=== PATIENT | female | born 1950 | race Caucasian/White ===

== ENCOUNTER 2020-07-21 21:34 | Inpatient (IN) | payer OTHER, MEDICARE ==
[~2020-07-21] VITALS: Ht 162.6 cm; Wt 165.0 kg
[2020-07-21] MEDS ORDERED: dilTIAZem IV PUSH 25 MG/5 ML VIAL IVP ONE ×2 (22:00→22:30)
--- NOTE | 2020-07-21 22:10 | PHYS DOC ---
General Adult EDM: Chief Complaint: RAPID HEART RATE HPI: HPI: 69-year-old female past medical history of atrial fibrillation for the past 5 years on Xarelto, hypertension and morbid obesity, [facility] with complaints of worsening progressive shortness of breath for the past 2 weeks after patient was cardioverted as an outpatient by her software packager Dr. Aleman, [facility]. Patient states her software packager recently doubled her metoprolol dose to 25mg and her amiodarone went from 100 to 400 qdaily. Is also on losartan and compliant with her Xarelto. Patient reports EMS had to take her to [place] and not shown admission. Is not aware of a rash in her right lower extremity but says her leg feels warm and is pruritic. No known history of MRSA. No cats at home. No interdigital web lesions. Review of Systems: Review of Systems: Constitutional: Denies fever or chills. [] Eyes: Denies change in visual acuity. [] HENT: Denies nasal congestion or sore throat. [] Respiratory: Denies cough or hemoptysis Cardiovascular: Denies chest pain or edema. [] GI: Denies abdominal pain, nausea, vomiting, bloody stools or diarrhea. [] : Denies vaginal bleeding or hematuria Musculoskeletal: Denies back pain or joint pain or new lower extremity swelling Integument: Denies discoloration or blistering lesions Neurologic: Denies headache, focal weakness or sensory changes. [] Endocrine: Denies polyuria or polydipsia. [] Lymphatic: Denies swollen glands. [] Psychiatric: Denies depression or anxiety. [] Heart Score: C/O Chest Pain: No Risk Factors: Risk Factors: DM, Current or recent (<one month) smoker, HTN, HLP, family history of CAD, obesity. Risk Scores: Score 0 - 3: 2.5% MACE over next 6 weeks - Discharge Home Score 4 - 6: 20.3% MACE over next 6 weeks - Admit for Clinical Observation Score 7 - 10: 72.7% MACE over next 6 weeks - Early Invasive Strategies Current Medications: Current Medications Medications (Trade) Dose Ordered Sig/Jacques Start Time Stop Time Status Last Admin Dose Admin Diltiazem HCl (Cardizem Iv Push) 20 mg 1X ONCE 07/21/20 22:00 07/21/20 22:01 UNV Sodium Chloride 1,000 ml @ 1,000 mls/hr 1X ONCE 07/21/20 22:00 07/21/20 22:59 UNV Physical Exam: PE: Constitutional: Well developed, well nourished, no acute distress, non-toxic appearance. HENT: Normocephalic, atraumatic, no oral lesions Eyes: EOMI, conjunctiva normal, no discharge. Neck: Normal range of motion, supple, Cardiovascular: S1/2 present, regular tachycardic Lungs & Thorax: Speaking in full sentences, bilateral equal chest rise, no tachypnea or increased work of breathing, placed on oxygen in ED-reports no home oxygen Abdomen: soft, no tenderness, Skin: Warm, dry, warm, erythematous rash over right lower extremity with no subcutaneous emphysema, negative Nikolsky sign with no desquamation Back: No tenderness, no CVA tenderness. [] Extremities: No tenderness, no cyanosis, no lower extremity edema Neurologic: Alert and oriented X 3, normal motor function, normal sensory function, no focal deficits noted. [] Psychologic: Affect normal, judgement normal, mood normal. [] EKG: EKG: Irregular rhythm with no P waves found at 142 bpm, A. fib with RVR, no axis deviation, QTC 489, no obvious ST elevations Radiology/Procedures: Radiology/Procedures: IMAGING REPORT Signed PATIENT: CONSUELO CAMPBELL ACCOUNT: [id number] : 1950 LOCATION: [facility] ICU AGE: 69 SEX: F EXAM STATUS: ADM IN ORD. PHYSICIAN: ESTELITA GARRISON DO REASON: rash r/o air PROCEDURE: RIGHT FEMUR XRAY Two-view right femur, two-view right knee and two-view right tibia-fibula dated 07/21/2020. No comparison available. Clinical data indication: Pain after injury. FINDINGS: 2 views right femur show normal bony alignment. No displaced fracture. No periostitis or bone destruction. Mild degenerative change at the right hip joint. 2 views the right knee show normal bony alignment. No displaced fracture. There is moderate tricompartmental hypertrophic change with prominent marginal o steophytes. No definite joint effusion or loose body. 2 views right tibia-fibula show normal bony alignment. No displaced fracture. No periostitis or bone destruction. IMPRESSION: 1. No acute bony abnormality. 2. Degenerative changes as above. Electronically signed by: Dangelo Rea MD (07/22/2020 3:55 AM) [facility] DICTATED and SIGNED BY: DANGELO REA MD DATE: 07/22/20 [id number] IMAGING REPORT Signed PATIENT: CONSUELO CAMPBELL ACCOUNT: [id number] : 1950 LOCATION: [facility] ICU AGE: 69 SEX: F EXAM STATUS: ADM IN ORD. PHYSICIAN: ESTELITA GARRISON DO REASON: soa PROCEDURE: PORTABLE CHEST 1V Single view chest dated 07/21/2020. No comparison available. CLINICAL INDICATION: Shortness of breath. FINDINGS: Upright portable exam performed. Heart size is mildly enlarged. Prominent perihilar linear markings. Lungs are otherwise clear. No consolidation or pleural effusion. No pneumothorax. IMPRESSION: 1. Mild perihilar interstitial changes, nonspecific. The findings could be chronic, although low-grade edema or atypical infection cannot be excluded. Correlate clinically. Electronically signed by: Dangelo Rea MD (07/22/2020 3:56 AM) [facility] DICTATED and SIGNED BY: DANGELO REA MD DATE: 07/22/20 [id number] Course & Med Decision Making: Course & Med Decision Making Pertinent Labs and Imaging studies reviewed. (See chart for details) Lengthy ED stay due to high volume in ED, acuity of critical pts and ED staffing. Concern for sepsis with RLE cellulitis and nitrite positive UTI, afib w/rvr (resolved with one dose of cardizem). Patient also hypoxic on nasal cannula (not her baseline) and tachycardic -suspect hypoxia related to CHF but cannot exclude PE. Patient was weaned off oxygen was 96% on room air but requested nasal cannula after blood gas was drawn. Pt also with morbid obesity, suspect hypoventilation syndrome. D-dimer will likely be elevated. Will admit for further medical management-may benefit from CTA chest to evaluate for PE vs V/Q scan vs bilateral duplex studies. Patient stable at time of admission and agrees with this plan. I have spoken with the patient and/or caregivers-daughter at [facility]. I have explained the patient's condition, diagnosis and treatment plan based on the information available to me at this time. I have answered the patient's and/or caregivers questions and answered any concerns. The patient and/or caregivers have as good an understanding of the patient's diagnosis, condition and treatment plan as can be expected at this point. The patient has been stabilized within the capability of the emergency department. The patient will be transported for further care and management or will be moved to an observation or inpatient service. I have communicated with the staff or medical practitioner taking over this patient's care. Critical Care: Authorized and Performed by: Estelita Garrison DO Total critical care time: approximately 30 minutes Due to a high probability of clinically significant, life threatening deterioration, the patient required my highest level of preparedness to intervene emergently and I personally spent this critical care time directly and personally managing the patient. This critical care time included obtaining a history; examining the patient; pulse oximetry; ventilator management if necessary; ordering and review of studies; arranging urgent treatment with development of a management plan; evaluation of patient's response to treatment; frequent reassessment; discussion with patient/family; and, discussions with other providers. This critical care time was performed to assess and manage the high probability of imminent, life-threatening deterioration that could result in multi-organ failure. It was exclusive of separately billable procedures and treating other patients and teaching time. Please see MDM section and the rest of the note for further information on patient assessment and treatment. Dragon Disclaimer: Valerie Disclaimer: This electronic medical record was generated, in whole or in part, using a voice recognition dictation system. Departure Departure Impression: Primary Impression: Atrial fibrillation with RVR Additional Impressions: Sepsis Cellulitis of right lower extremity UTI (urinary tract infection) Disposition: ADMITTED INPATIENT Admitting Physician: LIZ (Dr. Li) Condition: GUARDED ESTELITA GARRISON DO Jul 21, 2020 22:10
[2020-07-21] MEDS ORDERED: IV NORMAL SALINE 1000ML BAG 1,000 ML IV ONE (22:30)
[2020-07-21] MEDS ORDERED: IV NORMAL SALINE 1000ML BAG 1,000 ML IV SCH (22:30)
[2020-07-21 22:57] LABS: BASO % 0 % (0-3); EOS % 0 % (0-3); HEMATOCRIT 37.6 % (36.0-47.0); HEMOGLOBIN 12.5 g/dL (12.0-15.5); LYMPH # 0.6 x10^3/uL (1.0-4.8); LYMPH % 3 % (24-48); MEAN CORPUSCULAR HEMOGLOBIN 31 pg (25-35); MEAN CORPUSCULAR HGB CONC 33 g/dL (31-37); MEAN CORPUSCULAR VOLUME 94 fL (79-100); MONO # 0.6 x10^3/uL (0.0-1.1); MONO % 3 % (0-9); NEUT # 19.4 x10^3/uL (1.8-7.7); NEUT % 94 % (31-73); PLATELET COUNT 274 x10^3/uL (140-400); RED BLOOD COUNT 3.99 x10^6/uL (3.50-5.40); WHITE BLOOD COUNT 20.6 x10^3/uL (4.0-11.0)
[2020-07-21 23:10] LABS: CALCIUM 8.6 mg/dL (8.5-10.1); CREATININE 1.5 mg/dL (0.6-1.0); GFR 34.5; POTASSIUM 4.4 mmol/L (3.5-5.1)
[2020-07-21 23:17] LABS: ALBUMIN 2.6 g/dL (3.4-5.0); ALBUMIN/GLOBULIN RATIO 0.5 (1.0-1.7); MAGNESIUM 2.2 mg/dL (1.8-2.4); TOTAL BILIRUBIN 0.8 mg/dL (0.2-1.0); TOTAL PROTEIN 7.5 g/dL (6.4-8.2)
[2020-07-21] MEDS ORDERED: VANCOMYCIN 2 GM in IV NORMAL SALINE 500ML BAG 500 ML IV ONE (23:30)
[2020-07-22] VITALS (10 sets, daily range): BP systolic 85–110; BP diastolic 40–63
--- NOTE | 2020-07-22 00:36 | EKG ---
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
[2020-07-22] MEDS ORDERED: ACETAMINOPHEN 325 MG TABLET. PO ONE (01:00)
[2020-07-22 01:17] LABS: D-DIMER 0.88 ug/mlFEU (0.00-0.50)
[2020-07-22 01:35] LABS: BILIRUBIN,URINE NEGATIVE (NEG); CLARITY,URINE TURBID; COLOR,URINE AMBER; NITRITE,URINE POSITIVE (NEG); PROTEIN,URINE 100 mg/dL (NEG-TRACE)
[2020-07-22 01:42] LABS: BACTERIA,URINE MANY /HPF (0-FEW); RBC,URINE 0 /HPF (0-2); WBC,URINE 20-40 /HPF (0-4)
[2020-07-22 01:43] LABS: HYALINE CASTS, URINE FEW /HPF
[2020-07-22 01:47] LABS: BARBITURATES NEG (NEG); BENZODIAZEPINES NEG (NEG); CANNABINOIDS NEG (NEG); COCAINE NEG (NEG); METHADONE NEG (NEG); OPIATES NEG (NEG); PHENCYCLIDINE NEG (NEG)
[2020-07-22 01:55] LABS: AMPHETAMINE/METHAMPHETAMINE NEG (NEG)
[2020-07-22 02:06] LABS: BASE EXCESS ABG 0 mmol/L (-3-3); HCO3 ABG 23 mmol/L (21-28); PCO2 ABG 32 mmHg (35-46); PO2 ABG 68 mmHg (65-108); SAT O2 ABG 95 % (92-99)
[2020-07-22 02:18] LABS: FIO2 ABG 21
[2020-07-22 03:20] LABS: % BANDS 2 % (0-9); % LYMPHS 5 % (24-48); % MONOS 2 % (0-10); % SEGS 91 % (35-66); PLT ESTIMATE ADEQUATE (ADEQUATE)
[2020-07-22] MEDS: VANCOMYCIN PER PHARMACY MC PRN (03:34)
--- NOTE | 2020-07-22 03:34 | NUR ---
Pharmacy Vancomycin Dosing Note S:Consulted to monitor and dose vancomycin started 07/21/20. O:CONSUELO CAMPBELL is a 69 year old F with Cellulitis Sepsis . Height: 5 feet, 4 inches Weight: 163.7 kg [place] Body Weight: 54.70 Adjusted Body Weight: 98.30 Dosing Weight: Actual Other Antibiotics: LABS: Last BUN: 14 Last Creatinine: 1.5 Creatinine Clearance: 55.7 mL/min Last WBC: 20.6 Last Procalcitonin: Tmax (past 24 hours): 102.7 Microbiology: I/O: Drug Levels: Last level: on at Last dose given 07/21/20 at 2330 Vancomycin Dosing: Loading Dose: 2000 mg x1 Dosing Weight: Actual Target Trough: 15-20 A: Based on: WT AND CRCL P: 1. Begin Vancomycin 2000 mg IV q24h 2. Follow up Trough level on 07/23/20 at 2230 3. Pharmacy will continue to monitor, follow and adjust therapy as needed. JOE PIERCE RPH, 07/22/20 0334 Signed: 07/22/20 at 333 by JOE PIERCE RPH PHA
[2020-07-22] MEDS ORDERED: RIVA20TA2 PO (03:45)
--- NOTE | 2020-07-22 03:46 | NUR ---
admit from ER with A fib- RVR, cellulitis and SOB. patient states that she saw her core dipper 2 weeks ago, At that time she was cardioverted and Covid- Test was neg. Since then she states notes increase SOB, weakness and her left lower leg is red and warm. her kermit area and buttocks are red as well Addendum: 07/22/20 at 0506 by KASSANDRA PUENTE RN Dr Guillermo piedra for patient low BP- orders for fluids and changing ATB
--- NOTE | 2020-07-22 03:57 | RAD ---
Two-view right femur, two-view right knee and two-view right tibia-fibula dated 07/21/2020. No comparison available. Clinical data indication: Pain after injury. FINDINGS: 2 views right femur show normal bony alignment. No displaced fracture. No periostitis or bone destruc tion. Mild degenerative change at the right hip joint. 2 views the right knee show normal bony alignment. No displaced fracture. There is moderate tricompar tmental hypertrophic change with prominent marginal osteophytes. No definite joint effusion or loose body. 2 views right tibia-fibula show normal bony alignment. No displaced fracture. No periostitis or bone destruction. IMPRESSION: 1. No acute bony abnormality. 2. Degenerative changes as above. Electronically signed by: Dangelo Rea MD (07/22/2020 3:55 AM) GREG
--- NOTE | 2020-07-22 03:59 | RAD ---
Single view chest dated 07/21/2020. No comparison available. CLINICAL INDICATION: Shortness of breath. FINDINGS: Upright portable exam performed. Heart size is mildly enlarged. Prominent perihilar linear markings. Lungs are otherwise clear. No consolidation or pleural effusion. No pneumothorax. IMPRESSION: 1. Mild perihilar interstitial changes, nonspecific. The findings could be chronic, although low-grad e edema or atypical infection cannot be excluded. Correlate clinically. Electronically signed by: Dangelo Rea MD (07/22/2020 3:56 AM) GREG
[2020-07-22] MEDS ORDERED: cefTRIAXone IV Push 1 GM VIAL. IVP ONE (04:00)
[2020-07-22] MEDS ORDERED: PIP/TAZO PER PHARMACY MC PRN (05:15)
[2020-07-22] MEDS ORDERED: IV NORMAL SALINE 1000ML BAG 1,000 ML IV ONE (05:30)
[2020-07-22] MEDS: PIPERACILLIN/TAZOBACTAM 3.375 GM in IV NORMAL SALINE 50ML 50 ML IV SCH ×4 (05:55→23:26)
--- NOTE | 2020-07-22 10:30 | PDOC2 ---
IVETTE HERNANDEZ BUILDING ARCHITECTURAL DESIGNER 07/22/20 1030: CARDIAC CONSULT DATE OF CONSULT Date of Consult DATE: 07/22/20 TIME: 10:21 REASON FOR CONSULT Reason for Consult: AFIB with RVR REFERRING PHYSICIAN Referring Physician: Dr. Rosales SOURCE Source: Chart review, Patient HISTORY OF PRESENT ILLNESS HISTORY OF PRESENT ILLNESS This is a 69 yo female who presented secondary to shortness of breath. Has a history of AFIB. Follow with [facility], Dr. Al. Underwent cardioversion 2 weeks ago. Reports experiencing shortness of breath since that time. Denies any chest pain, palpitations, dizziness, diaphoresis, or nausea/vomiting. Was noted in AFIB with RVR upon arrival, which prompted this consult. Also noted with fevers, leukocytosis, and UTI. Reports compliance with meds including metoprolol, Amiodarone, and Xarelto. PAST MEDICAL HISTORY Cardiovascular: AFIB (s/p CV), CHF, HTN Pulmonary: Asthma GI: GERD Psych: Anxiety, Depression Renal/: Chronic renal insuff PAST SURGICAL HISTORY Past Surgical History: Cholecystectomy FAMILY HISTORY Family History: Hypertension SOCIAL HISTORY Smoke: No ALCOHOL: none Drugs: None Lives: with Family CURRENT MEDICATIONS CURRENT MEDICATIONS Current Medications Medications (Trade) Dose Ordered Sig/Jacques Route PRN Reason Start Time Stop Time Status Last Admin Dose Admin Sodium Chloride 1,000 ml @ 1,000 mls/hr Q1H IV 07/21/20 22:30 07/21/20 23:29 DC 07/21/20 22:58 Sodium Chloride 1,000 ml @ 1,000 mls/hr 1X ONCE IV 07/21/20 22:30 07/21/20 23:29 DC 07/21/20 22:58 Diltiazem HCl (Cardizem Iv Push) 20 mg 1X ONCE IVP 07/21/20 22:30 07/21/20 22:31 DC 07/21/20 22:59 Vancomycin HCl (Vanco Per Pharmacy) 1 each PRN DAILY PRN MC SEE COMMENTS 07/21/20 22:15 07/22/20 03:34 Vancomycin HCl 2 gm/Sodium Chloride 500 ml @ 250 mls/hr 1X ONCE IV 07/21/20 23:30 07/22/20 01:29 DC 07/21/20 23:31 Acetaminophen (Tylenol) 650 mg 1X ONCE PO 07/22/20 01:00 07/22/20 01:01 DC 07/22/20 01:16 Ceftriaxone Sodium (Rocephin) 1 gm 1X ONCE IVP 07/22/20 04:00 07/22/20 04:01 DC 07/22/20 04:22 Sodium Chloride 1,000 ml @ 125 mls/hr 1X ONCE IV 07/22/20 05:30 07/22/20 13:29 07/22/20 05:23 Piperacillin Sod/ Tazobactam Sod 3.375 gm/Sodium Chloride 50 ml @ 100 mls/hr Q6HRS IV 07/22/20 06:00 07/22/20 05:55 ALLERGIES ALLERGIES: Coded Allergies: No Known Drug Allergies (Unverified , 07/21/20) ROS Review of System 14 point ROS conducted with pertinent positives noted above in HPI PHYSICAL EXAM General: Alert, Oriented X3, Cooperative, No acute distress HEENT: Atraumatic Lungs: Other (diminished ) Heart: Other (AFIB, rate mostly controlled ) Abdomen: Soft, Other (obese ) Extremities: Other (1+ bilalteral LE edema. Erythema to RLE ) Skin: No significant lesion Neuro: Normal speech, Sensation intact Psych/Mental Status: Mental status NL, Mood NL MUSCULOSKELETAL: Osteoarthritic changes both hands VITALS/I&O VITALS/I&O: Vital Signs Date Time Temp Pulse Resp B/P (MAP) Pulse Ox O2 Delivery O2 Flow Rate FiO2 07/22/20 08:00 Room Air 07/22/20 07:00 98.3 95 20 95/40 (58) 99 2.0 98.3 I & O 07/21/20 07/21/20 07/22/20 15:00 23:00 07:00 Intake Total 4250 ml Balance 4250 ml LABS Lab: Laboratory Tests Test 07/21/20 22:46 07/22/20 00:59 07/22/20 01:27 07/22/20 01:56 White Blood Count 20.6 x10^3/uL (4.0-11.0) H Red Blood Count 3.99 x10^6/uL (3.50-5.40) Hemoglobin 12.5 g/dL (12.0-15.5) Hematocrit 37.6 % (36.0-47.0) Mean Corpuscular Volume 94 fL (79-100) Mean Corpuscular Hemoglobin 31 pg (25-35) Mean Corpuscular Hemoglobin Concent 33 g/dL (31-37) Red Cell Distribution Width 14.0 % (11.5-14.5) Platelet Count 274 x10^3/uL (140-400) Neutrophils (%) (Auto) 94 % (31-73) H Lymphocytes (%) (Auto) 3 % (24-48) L Monocytes (%) (Auto) 3 % (0-9) Eosinophils (%) (Auto) 0 % (0-3) Basophils (%) (Auto) 0 % (0-3) Neutrophils # (Auto) 19.4 x10^3/uL (1.8-7.7) H Lymphocytes # (Auto) 0.6 x10^3/uL (1.0-4.8) L Monocytes # (Auto) 0.6 x10^3/uL (0.0-1.1) Eosinophils # (Auto) 0.0 x10^3/uL (0.0-0.7) Basophils # (Auto) 0.0 x10^3/uL (0.0-0.2) Segmented Neutrophils % 91 % (35-66) H Band Neutrophils % 2 % (0-9) Lymphocytes % 5 % (24-48) L Monocytes % 2 % (0-10) Platelet Estimate Adequate (ADEQUATE) Prothrombin Time 20.0 SEC (11.7-14.0) H Prothrombin Time INR 1.7 (0.8-1.1) H Activated Partial Thromboplast Time 49 SEC (24-38) H D-Dimer (Maureen) 0.88 ug/mlFEU (0.00-0.50) H Sodium Level 136 mmol/L (136-145) Potassium Level 4.4 mmol/L (3.5-5.1) Chloride Level 101 mmol/L (98-107) Carbon Dioxide Level 28 mmol/L (21-32) Anion Gap 7 (6-14) Blood Urea Nitrogen 14 mg/dL (7-20) Creatinine 1.5 mg/dL (0.6-1.0) H Estimated GFR (Cockcroft-Gault) 34.5 BUN/Creatinine Ratio 9 (6-20) Glucose Level 130 mg/dL (70-99) H Lactic Acid Level 1.8 mmol/L (0.4-2.0) Calcium Level 8.6 mg/dL (8.5-10.1) Phosphorus Level 1.7 mg/dL (2.6-4.7) L Magnesium Level 2.2 mg/dL (1.8-2.4) Total Bilirubin 0.8 mg/dL (0.2-1.0) Aspartate Amino Transferase (AST) 29 U/L (15-37) Alanine Aminotransferase (ALT) 36 U/L (14-59) Alkaline Phosphatase 107 U/L (46-116) Troponin I Quantitative < 0.017 ng/mL (0.000-0.055) < 0.017 ng/mL (0.000-0.055) GW-Smy-K-Type Natriuretic Peptide 41799 pg/mL (0-124) H Total Protein 7.5 g/dL (6.4-8.2) Albumin 2.6 g/dL (3.4-5.0) L Albumin/Globulin Ratio 0.5 (1.0-1.7) L Urine Collection Type U cath Urine Color Loretta Urine Clarity Turbid Urine pH 6.0 (<5.0-8.0) Urine Specific Sullivan 1.025 (1.000-1.030) Urine Protein 100 mg/dL (NEG-TRACE) Urine Glucose (UA) Negative mg/dL (NEG) Urine Ketones (Stick) Trace mg/dL (NEG) Urine Blood Negative (NEG) Urine Nitrite Positive (NEG) Urine Bilirubin Negative (NEG) Urine Urobilinogen Dipstick 1.0 mg/dL (0.2 mg/dL) Urine Leukocyte Esterase Moderate (NEG) Urine RBC 0 /HPF (0-2) Urine WBC 20-40 /HPF (0-4) Urine Squamous Epithelial Cells Few /LPF Urine Bacteria Many /HPF (0-FEW) Urine Hyaline Casts Few /HPF Urine Mucus Slight /LPF Urine Opiates Screen Neg (NEG) Urine Methadone Screen Neg (NEG) Urine Barbiturates Neg (NEG) Urine Phencyclidine Screen Neg (NEG) Urine Amphetamine/Methamphetamine Neg (NEG) Urine Benzodiazepines Screen Neg (NEG) Urine Cocaine Screen Neg (NEG) Urine Cannabinoids Screen Neg (NEG) Urine Ethyl Alcohol Neg (NEG) O2 Saturation 95 % (92-99) Arterial Blood pH 7.47 (7.35-7.45) H Arterial Blood pCO2 at Patient Temp 32 mmHg (35-46) L Arterial Blood pO2 at Patient Temp 68 mmHg (65-108) Arterial Blood HCO3 23 mmol/L (21-28) Arterial Blood Base Excess 0 mmol/L (-3-3) FiO2 21 Test 07/22/20 07:05 Troponin I Quantitative < 0.017 ng/mL (0.000-0.055) Laboratory Tests 07/21/20 22:46 Laboratory Tests 07/21/20 22:46 ASSESSMENT/PLAN ASSESSMENT/PLAN 1. Acute on chronic probable diastolic CHF 2. PAFIB; presently with RVR in setting of acute febrile illness. Rate controlled following IV Cardizem bolus. Follows with [facility], Dr. Al. Underwent cardioversion 2 weeks ago. On metoprolol and Amiodarone for rhythm, rate control. Xarelto for stroke prophylaxis 3. Hypertension; low end 4. CKD 5. Leukocytosis, fevers, UTI 6. RLE cellulitis Recommendations Lasix therapy IV Dig x1 now Resume metoprolol for rate control as BP allows Amiodarone for rhythm control Xarelto for stroke prophylaxis Obtain records from [facility] Ongoing treatment of UTI, cellulitis as per MARTA MENDOZA MD 07/22/20 1832: CARDIAC CONSULT ASSESSMENT/PLAN ASSESSMENT/PLAN Patient seen and examined. Agree with TRANSMISSION TECHNICIAN's assessment and plan. Recurrent AF rate better controlled Continue amiodarone and xarelto We will review records from [facility] and make further recommendations - she will probably need AF ablation Continue diuresis for acute on chr diastolic HF Thank you for your consultation IVETTE HERNANDEZ APRN Jul 22, 2020 10:30 MARTA MENDOZA MD Jul 22, 2020 18:32
[2020-07-22] MEDS ORDERED: VALA10005 PO (10:33)
[2020-07-22] MEDS ORDERED: METO-247 PO (10:33)
[2020-07-22] MEDS ORDERED: AMIO100T4 PO ×2 (10:34→10:37)
[2020-07-22] MEDS ORDERED: TELM40TA PO (10:34)
[2020-07-22] MEDS ORDERED: DIGOXIN IV 500 MCG/2 ML AMPUL. IV ONE (10:45)
[2020-07-22] MEDS: METOPROLOL SUCC 24HR ER 50 MG TAB.ER.24H. PO SCH (11:00)
[2020-07-22] MEDS: fentaNYL PF VIAL 100 MCG/2 ML VIAL IVP PRN ×5 (11:01→23:25)
[2020-07-22] MEDS: AMIODARONE HCL 200 MG TABLET. PO SCH (11:52)
[2020-07-22] MEDS: ACETAMINOPHEN 325 MG TABLET. PO PRN (12:49)
[2020-07-22] MEDS ORDERED: FUROSEMIDE 40 MG/4 ML VIAL. IVP ONE (13:45)
--- NOTE | 2020-07-22 14:19 | NUR ---
SW following. Chart reviewed. Pt from home alone, room air, cardiac diet. Cardiology following. SW will continue to follow.
--- NOTE | 2020-07-22 14:42 | HP ---
ADMIT DATE: 07/22/2020 CHIEF COMPLAINT: Rapid heart rate. HISTORY OF PRESENT ILLNESS: The patient is a pleasant 69-year-old female who has a previous history of atrial fibrillation 5 years ago, now she presents with another rapid heart rate, has been occurring for a couple of days. She thought it would go away. She has some associated shortness of breath and some left arm discomfort. She apparently was converted recently as an outpatient from her recurrent AFib. She has also increased her metoprolol. She is already on Xarelto. I discussed the case with ER physician. The patient has been admitted to the ICU. She has AFib with RVR and sepsis as well with cellulitis on the right lower extremity. PAST MEDICAL HISTORY: AFib, chronic anticoagulation, viral infection as she is on Valtrex, arrhythmias, hypertension. ALLERGIES: None. FAMILY HISTORY: Diabetes. SOCIAL HISTORY: She does not drink, smoke or take drugs. She works at the [employer]. MEDICATIONS: Reviewed. She is on Valtrex, Xarelto, amiodarone, metoprolol and Micardis. REVIEW OF SYSTEMS: GENERAL: No history of weight change, weakness or fevers. SKIN: No bruising, hair changes or rashes. EYES: No blurred, double or loss of vision. NOSE AND THROAT: No history of nosebleeds, hoarseness or sore throat. HEART: No history of palpitations, chest pain or shortness of breath on exertion. LUNGS: Denies cough, hemoptysis, wheezing. She complains of shortness of breath. GASTROINTESTINAL: Denies changes in appetite, nausea, vomiting, diarrhea or constipation. GENITOURINARY: No history of frequency, urgency, hesitancy or nocturia. NEUROLOGIC: Denies history of numbness, tingling, tremor or weakness. PSYCHIATRIC: No history of panic, anxiety or depression. ENDOCRINE: No history of heat or cold intolerance, polyuria or polydipsia. EXTREMITIES: Denies muscle weakness, pain on walking or stiffness. She complains of left arm pain. PHYSICAL EXAMINATION: VITALS: Within normal limits and are stable. GENERAL: No apparent distress. Alert and oriented. HEENT: Normal cephalic atraumatic, external auditory canals are patent. EYES: Extraocular muscles are intact, pupils are equally round and reactive to light and accommodation. MUSCULOSKELETAL: Well developed, well nourished, good range of motion. ENDOCRINE: No thyromegaly was palpated. LYMPHATICS: No cervical chain or axillary nodes were noted. HEMATOPOIETIC: No bruising. NECK: Supple, no JVD, no thyromegaly was noted. LUNGS: Clear to auscultation in all lung chavez without rhonchi or wheezing. HEART: RRR, S1, S2 present. Peripheral pulses intact, no obvious murmurs were noted. ABDOMEN: Soft, nontender. Positive bowel sounds no organomegaly, normal bowel sounds. EXTREMITIES: Without any cyanosis, clubbing, or edema. Pedal pulses intact, Homans sign is negative. The right lower extremity has cellulitis. Please see the pictures. NEUROLOGIC: Normal speech, normal tone. A and O x 3, moves all extremities, no obvious focal deficits. PSYCHIATRIC: Normal affect, normal mood. Stable. SKIN: No ulcerations or rashes, good skin turgor, no jaundice. VASCULAR: Good capillary refill, neurovascular bundle appears to be intact. LABORATORY DATA: White count is 21. Electrolytes are pending. Troponin is 0. Urinalysis shows moderate leukocyte esterase and 20-40 white cells. INR is 1.7. ABG shows a pH of 7.47, pCO2 of 32, pO2 of 68, bicarbonate 23 with 98% sat that was on room air. Drug screens negative. Chest x-ray: Possible atypical infection with mild perihilar interstitial changes. ASSESSMENT AND PLAN: Sepsis and atrial fibrillation with rapid ventricular response, cellulitis and leukocytosis and urinary tract infection. The patient will be admitted to the ICU. IV fluids, IV antibiotics. Consult Cardiology. Consult Infectious Disease. Home meds. Deep venous thrombosis prophylaxis. Full code. Long-term prognosis guarded. CC time 34 minutes. REENA/MAGEN DR: Gene TID: [id number]
[2020-07-22] MEDS: LACTOBACILLUS RHAMNOSUS GG 1 CAPSULE. PO SCH ×2 (15:10→20:50)
[2020-07-22] MEDS: RIVAROXABAN 10 MG TABLET. PO SCH (17:26)
[2020-07-22] MEDS: POTASSIUM & SODIUM PHOSPHATES PACKET. PO SCH ×2 (17:27→20:49)
[2020-07-22] MEDS: VANCOMYCIN 2 GM in IV NORMAL SALINE 500ML BAG 500 ML IV SCH (23:00)
[2020-07-23] MEDS: fentaNYL PF VIAL 100 MCG/2 ML VIAL IVP PRN ×3 (01:19→08:15)
[2020-07-23 03:08] VITALS: BP 107/48
[2020-07-23] MEDS: PIPERACILLIN/TAZOBACTAM 3.375 GM in IV NORMAL SALINE 50ML 50 ML IV SCH ×3 (05:29→18:17)
--- NOTE | 2020-07-23 06:51 | PDOC ---
[facility] [facility] PROGRESS NOTE Date of Service DOS: DATE: 07/23/20 TIME: 06:40 Chief Complaint Chief Complaint Sepsis and atrial fibrillation with rapid ventricular response, cellulitis and leukocytosis and urinary tract infection. The patient will be admitted to the ICU. IV fluids, IV antibiotics. Consult Cardiology. Consult Infectious Disease. Home meds. Deep venous thrombosis prophylaxis. Full code. Long-term prognosis guarded. CC time 34 minutes. History of Present Illness History of Present Illness The patient is a pleasant 69-year-old female who has a previous history of atrial fibrillation 5 years ago, now she presents with another rapid heart rate, has been occurring for a couple of days. She thought it would go away. She has some associated shortness of breath and some left arm discomfort. She apparently was converted recently as an outpatient from her recurrent AFib. She has also increased her metoprolol. She is already on Xarelto. I discussed the case with ER physician. The patient has been admitted to the ICU. She has AFib with RVR and sepsis as well with cellulitis on the right lower extremity. 07/23/2020 Afebrile, no acute events overnight. She complains of pain in her right lower extremity; will discontinue IV pain medications and add orals. 90 mL net fluid output overnight; continue diuresis with Lasix IV x1. Monitor kidney function. Will also continue metoprolol and amiodarone for rate control. MRSA PCR pending, continue vancomycin and Zosyn for now. Appreciate ID input on the management of this patient. Vitals/I&O Vitals/I&O: Vital Signs Date Time Temp Pulse Resp B/P (MAP) Pulse Ox O2 Delivery O2 Flow Rate FiO2 07/23/20 05:31 22 Room Air 07/23/20 03:08 98.0 84 107/48 (67) 94 98.0 07/22/20 18:08 2.0 I & O 07/22/20 07/22/20 07/23/20 15:00 23:00 07:00 Intake Total 480 ml 380 ml 0 ml Output Total 450 ml 500 ml Balance 30 ml -120 ml 0 ml Physical Exam General: Alert, Oriented X3, Cooperative, No acute distress Heart: Other (AFIB, rate mostly controlled ) Abdomen: Soft, Other (obese ) Extremities: Other (1+ bilalteral LE edema) Skin: No significant lesion, Other (Erythema to RLE ) Labs Labs: Laboratory Tests Test 07/22/20 07:05 07/23/20 04:30 Troponin I Quantitative < 0.017 ng/mL (0.000-0.055) Creatinine 1.4 mg/dL (0.6-1.0) Estimated GFR (Cockcroft-Gault) 37.4 Assessment and Plan Assessmemt and Plan Problems Medical Problems: (1) Atrial fibrillation with RVR Status: Acute (2) Cellulitis of right lower extremity Status: Acute (3) Sepsis Status: Acute (4) UTI (urinary tract infection) Status: Acute Comment Review of Relevant I have reviewed the following items maria c (where applicable) has been applied. Medications: Current Medications Medications (Trade) Dose Ordered Sig/Jacques Route PRN Reason Start Time Stop Time Status Last Admin Dose Admin Vancomycin HCl 2 gm/Sodium Chloride 500 ml @ 250 mls/hr Q24H IV 07/22/20 23:00 07/22/20 23:00 Lactobacillus Rhamnosus (Culturelle) 1 cap BID PO 07/22/20 09:00 07/22/20 20:50 Fentanyl Citrate (Fentanyl 2ml Vial) 50 mcg PRN Q2HR PRN IVP PAIN 07/22/20 10:30 07/23/20 05:31 Rivaroxaban (Xarelto) 20 mg DAILYWSUP PO 07/22/20 17:00 07/22/20 17:26 Amiodarone HCl (Cordarone) 200 mg DAILY PO 07/22/20 11:00 07/22/20 11:52 Digoxin (Lanoxin) 250 mcg 1X ONCE IV 07/22/20 10:45 07/22/20 10:46 DC 07/22/20 11:22 Acetaminophen (Tylenol) 650 mg PRN Q6HRS PRN PO MILD PAIN / TEMP > 100.3'F 07/22/20 11:30 07/22/20 12:49 Furosemide (Lasix) 40 mg 1X ONCE IVP 07/22/20 13:45 07/22/20 13:48 DC 07/22/20 15:08 Potassium Phos/ Sodium Phos (Phos-Nak) 1 pkt Q12HR PO 07/22/20 17:00 07/23/20 09:01 07/22/20 17:27 Justifications for Admission Other Justification SHANNAN JACKSON MD Jul 23, 2020 06:51
[2020-07-23 07:00] VITALS: BP 110/57
[2020-07-23] MEDS ORDERED: FUROSEMIDE 20 MG/2 ML VIAL. IVP ONE (07:00)
[2020-07-23 07:24] LABS: BASO # 0.1 x10^3/uL (0.0-0.2); BASO % 0 % (0-3); EOS # 0.1 x10^3/uL (0.0-0.7); EOS % 1 % (0-3); HEMATOCRIT 32.7 % (36.0-47.0); HEMOGLOBIN 10.5 g/dL (12.0-15.5); LYMPH # 0.9 x10^3/uL (1.0-4.8); LYMPH % 7 % (24-48); MEAN CORPUSCULAR HEMOGLOBIN 31 pg (25-35); MEAN CORPUSCULAR HGB CONC 32 g/dL (31-37); MEAN CORPUSCULAR VOLUME 96 fL (79-100); MONO # 0.6 x10^3/uL (0.0-1.1); MONO % 4 % (0-9); NEUT # 11.5 x10^3/uL (1.8-7.7); NEUT % 87 % (31-73); PLATELET COUNT 244 x10^3/uL (140-400); RED CELL DISTRIBUTION WIDTH 14.9 % (11.5-14.5); WHITE BLOOD COUNT 13.2 x10^3/uL (4.0-11.0)
[2020-07-23 07:29] LABS: CALCIUM 7.8 mg/dL (8.5-10.1); CREATININE 1.4 mg/dL (0.6-1.0); GFR 37.4; POTASSIUM 3.8 mmol/L (3.5-5.1)
[2020-07-23] MEDS ORDERED: HYDROcodone/APAP 10/325 1 TAB TABLET PO PRN (10:15)
[2020-07-23] MEDS: LACTOBACILLUS RHAMNOSUS GG 1 CAPSULE. PO SCH ×2 (10:17→20:39)
[2020-07-23] MEDS: AMIODARONE HCL 200 MG TABLET. PO SCH (10:17)
[2020-07-23] MEDS: METOPROLOL SUCC 24HR ER 50 MG TAB.ER.24H. PO SCH (10:17)
[2020-07-23] MEDS: POTASSIUM & SODIUM PHOSPHATES PACKET. PO SCH (10:18)
[2020-07-23] MEDS: HYDROcodone/APAP 7.5/325MG 1 TAB TABLET PO PRN ×2 (10:24→16:14)
[2020-07-23 11:00] VITALS: BP 105/55
--- NOTE | 2020-07-23 12:14 | NUR ---
SS following for discharge planning. SS reviewed pt chart and discussed with pt RN. Pt is from home and is currently on room air. Pt on IV Vancomycin and IV Zosyn for cellulitis. Cardiology following. SS will continue to follow for discharge planning.
--- NOTE | 2020-07-23 12:21 | PDOC ---
IVETTE HERNANDEZ BILLING AND ACCOUNTING STAFF ASSISTANT 07/23/20 1221: CARDIO Progress Notes Date and Time Date of Service 07/23/20 Time of Evaluation 1220 Subjective Subjective: No Chest Pain, No Palpitations, Other (no SOA at rest ) Vitals Vitals Vital Signs Date Time Temp Pulse Resp B/P (MAP) Pulse Ox O2 Delivery O2 Flow Rate FiO2 07/23/20 11:50 94 Room Air 07/23/20 10:17 120 121/56 07/23/20 07:00 98.4 18 98.4 07/22/20 18:08 2.0 Weight Weight [ ] Input and Output Intake and Output Intake and Output 07/23/20 07:00 Intake Total 860 ml Output Total 950 ml Balance -90 ml Intake Oral 860 ml Output Urine Total 950 ml Laboratory Labs Laboratory Tests Test 07/23/20 04:30 White Blood Count 13.2 x10^3/uL (4.0-11.0) Red Blood Count 3.40 x10^6/uL (3.50-5.40) Hemoglobin 10.5 g/dL (12.0-15.5) Hematocrit 32.7 % (36.0-47.0) Mean Corpuscular Volume 96 fL (79-100) Mean Corpuscular Hemoglobin 31 pg (25-35) Mean Corpuscular Hemoglobin Concent 32 g/dL (31-37) Red Cell Distribution Width 14.9 % (11.5-14.5) Platelet Count 244 x10^3/uL (140-400) Neutrophils (%) (Auto) 87 % (31-73) Lymphocytes (%) (Auto) 7 % (24-48) Monocytes (%) (Auto) 4 % (0-9) Eosinophils (%) (Auto) 1 % (0-3) Basophils (%) (Auto) 0 % (0-3) Neutrophils # (Auto) 11.5 x10^3/uL (1.8-7.7) Lymphocytes # (Auto) 0.9 x10^3/uL (1.0-4.8) Monocytes # (Auto) 0.6 x10^3/uL (0.0-1.1) Eosinophils # (Auto) 0.1 x10^3/uL (0.0-0.7) Basophils # (Auto) 0.1 x10^3/uL (0.0-0.2) Sodium Level 140 mmol/L (136-145) Potassium Level 3.8 mmol/L (3.5-5.1) Chloride Level 104 mmol/L (98-107) Carbon Dioxide Level 25 mmol/L (21-32) Anion Gap 11 (6-14) Blood Urea Nitrogen 19 mg/dL (7-20) Creatinine 1.4 mg/dL (0.6-1.0) Estimated GFR (Cockcroft-Gault) 37.4 Glucose Level 98 mg/dL (70-99) Calcium Level 7.8 mg/dL (8.5-10.1) Microbiology Micro Microbiology 07/22/20 Urine Culture - Preliminary, Resulted 07/22/20 Blood Culture - Preliminary, Resulted NO GROWTH AFTER 1 DAY Physical Exam HEENT: Neck Supple W Full Motion Chest: Symmetric LUNGS: Other (diminished bases) Heart: irregularly irregular Abdomen: Soft N/T Extremities: Other (1+ bilateral LE edema ) Neurology: alert, oriented, follow commands Assessment Assessment 1. Acute on chronic probable diastolic CHF; improved with diuresis 2. PAFIB; remains intermittent [facility]; records obtained, but unclear if she had successful conversion to SR. 3. Hypertension; low end 4. H/o NICM; LVEF perviously 25-30% 2015. Cath 05/2015 with normal coronaries. Echo 2017 shows LVEF recovery. NATASHA 07/08/20 with EV 50-55%. 5. CKD 6. Leukocytosis, fevers, UTI 7. RLE cellulitis Recommendations Mild diuresis IV Dig x1 now Metoprolol for rate control as BP allows Amiodarone for rhythm control Xarelto for stroke prophylaxis May require AF ablation Ongoing treatment of UTI, cellulitis as per IM Justicifation of Admission Dx: Justifications for Admission: Justification of Admission Dx: Yes CHF: Cardiac Arrhythmias (AFIB with RVR) MARTA MENDOZA MD 07/23/20 1525: CARDIO Progress Notes Assessment Assessment Patient seen and examined. Agree with LEASE BROKER's assessment and plan. Acute on chronic diastolic heart failure better compensated with diuresis Recurrent AF rate better controlled Continue amiodarone and xarelto Possible AF ablation therapy as an outpatient IVETTE HERNANDEZ APRN Jul 23, 2020 12:21 MARTA MENDOZA MD Jul 23, 2020 15:25
[2020-07-23] MEDS ORDERED: DIGOXIN IV 500 MCG/2 ML AMPUL. IV ONE (12:45)
[2020-07-23 15:00] VITALS: BP 112/56
[2020-07-23] MEDS: RIVAROXABAN 10 MG TABLET. PO SCH (17:17)
[2020-07-23 19:29] VITALS: BP 101/52
[2020-07-23] MEDS: HYDROcodone/APAP 5/325MG 1 TAB TABLET PO PRN (20:43)
[2020-07-23 22:19] VITALS: BP 110/55
[2020-07-23 22:54] LABS: VANC TR 17.1 mcg/mL (10.0-20.0)
[2020-07-23] MEDS: VANCOMYCIN 2 GM in IV NORMAL SALINE 500ML BAG 500 ML IV SCH (23:20)
[2020-07-23] MEDS: VANCOMYCIN PER PHARMACY MC PRN (23:55)
--- NOTE | 2020-07-23 23:56 | NUR ---
Pharmacy Vancomycin Dosing Note S:Consulted to monitor and dose vancomycin started 07/21/20. O:CONSUELO CAMPBELL is a 69 year old F with Cellulitis Sepsis . Height: 5 feet, 4 inches Weight: 165.8 kg [place] Body Weight: 54.70 Adjusted Body Weight: 99.14 Dosing Weight: Actual Other Antibiotics: LABS: Last BUN: 14 Last Creatinine: 1.5 Creatinine Clearance: 55.7 mL/min Last WBC: 20.6 Last Procalcitonin: Tmax (past 24 hours): 102.7 Microbiology: I/O: Drug Levels: Last Trough level: 17.1 on 07/23/20 at 2230 Last dose given 07/21/20 at 2330 Vancomycin Dosing: Loading Dose: 2000 mg x1 Dosing Weight: Actual Target Trough: 15-20 A: Based on: TROUGH P: 1. Continue Vancomycin 2000 mg IV q24h 2. Follow up Trough level IF NEEDED 3. Pharmacy will continue to monitor, follow and adjust therapy as needed. JOE PIERCE RPH, 07/23/206 Signed: 07/23/20 at 2356 by JOE PIERCE RPH PHA
[2020-07-24] VITALS (7 sets, daily range): BP systolic 87–168; BP diastolic 45–75
[2020-07-24] MEDS: HYDROcodone/APAP 5/325MG 1 TAB TABLET PO PRN ×4 (00:38→20:58)
[2020-07-24] MEDS: PIPERACILLIN/TAZOBACTAM 3.375 GM in IV NORMAL SALINE 50ML 50 ML IV SCH ×4 (00:39→17:24)
[2020-07-24 05:37] LABS: BASO % 1 % (0-3); EOS # 0.3 x10^3/uL (0.0-0.7); EOS % 4 % (0-3); HEMOGLOBIN 10.1 g/dL (12.0-15.5); LYMPH % 13 % (24-48); MEAN CORPUSCULAR HEMOGLOBIN 31 pg (25-35); MEAN CORPUSCULAR HGB CONC 33 g/dL (31-37); MEAN CORPUSCULAR VOLUME 96 fL (79-100); MONO # 0.5 x10^3/uL (0.0-1.1); MONO % 7 % (0-9); NEUT # 5.8 x10^3/uL (1.8-7.7); NEUT % 75 % (31-73); PLATELET COUNT 238 x10^3/uL (140-400); RED BLOOD COUNT 3.23 x10^6/uL (3.50-5.40); RED CELL DISTRIBUTION WIDTH 14.1 % (11.5-14.5); WHITE BLOOD COUNT 7.6 x10^3/uL (4.0-11.0)
--- NOTE | 2020-07-24 05:41 | NUR ---
Patient is being treated for cellulitis of the RLE. 07/23/20 patient complained of some increasing pain around her ankle to RLE. 0500 this day, patient stated pain was now throughout the foot and Jesica's test positive for pain. Physician paged.
[2020-07-24 06:07] LABS: CALCIUM 8.2 mg/dL (8.5-10.1); CREATININE 1.4 mg/dL (0.6-1.0); GFR 37.4; POTASSIUM 3.9 mmol/L (3.5-5.1)
[2020-07-24] MEDS: VANCOMYCIN PER PHARMACY MC PRN (07:39)
[2020-07-24] MEDS: LACTOBACILLUS RHAMNOSUS GG 1 CAPSULE. PO SCH ×2 (07:52→20:58)
[2020-07-24] MEDS: AMIODARONE HCL 200 MG TABLET. PO SCH (07:53)
--- NOTE | 2020-07-24 08:53 | PDOC ---
PROGRESS NOTES Date of Service: DATE: 07/24/20 TIME: 08:53 Chief Complaint Chief Complaint IMPRESSION Sepsis and atrial fibrillation with rapid ventricular response, cellulitis and leukocytosis and urinary tract infection. ELECTROLYTE imbalance H/o NICM; LVEF perviously 25-30% 2015. Cath 05/2015 with normal coronaries. Echo 2018 shows LVEF recovery. NATASHA 07/08/20 with EV 50-55%. admitted to the ICU. IV fluids, IV antibiotics. Consult Cardiology. Consult Infectious Disease. Home meds. Deep venous thrombosis prophylaxis. Full code. Long-term prognosis guarded. replace lytes CC time 34 minutes. History of Present Illness History of Present Illness The patient is a pleasant 69-year-old female who has a previous history of atrial fibrillation 5 years ago, now she presents with another rapid heart rate, has been occurring for a couple of days. She thought it would go away. She has some associated shortness of breath and some left arm discomfort. She apparently was converted recently as an outpatient from her recurrent AFib. She has also increased her metoprolol. She is already on Xarelto. I discussed the case with ER physician. The patient has been admitted to the ICU. She has AFib with RVR and sepsis as well with cellulitis on the right lower extremity. 07/24/2020 Afebrile, no acute events overnight. She complains of pain in her right lower extremity; will discontinue IV pain medications and add orals. 90 mL net fluid output overnight; continue diuresis with Lasix IV x1. Monitor kidney function. Will also continue metoprolol and amiodarone for rate control. MRSA PCR pending, continue vancomycin and Zosyn for now. Appreciate ID input on the management of this patient. No Doppler evidence of lower extremity deep venous thrombosis. 07/23/2020 Afebrile, no acute events overnight. She complains of pain in her right lower extremity; will discontinue IV pain medications and add orals. 90 mL net fluid output overnight; continue diuresis with Lasix IV x1. Monitor kidney function. Will also continue metoprolol and amiodarone for rate control. MRSA PCR pending, continue vancomycin and Zosyn for now. Appreciate ID input on the management of this patient. Vitals Vitals Vital Signs Date Time Temp Pulse Resp B/P (MAP) Pulse Ox O2 Delivery O2 Flow Rate FiO2 07/24/20 08:38 99 Room Air 07/24/20 07:53 92 122/54 07/24/20 05:46 2.0 07/24/20 02:24 98.1 18 98.1 Physical Exam General: Alert, Oriented X3, Cooperative, No acute distress Heart: Other (AFIB, rate mostly controlled ) Abdomen: Soft, Other (obese ) Extremities: Other (1+ bilalteral LE edema) Skin: No significant lesion, Other (Erythema to RLE ) Labs LABS OURCE: STRA CATH ENTR: 07/22/20-[address]: GUERRERO HUNTER SOURCE: BLOOD ENTR: 07/22/20-[address]: GUERRERO HUNTER SPDESC: ORDERED: BCULT Procedure Result BLOOD CULTURE Preliminary NO GROWTH AFTER 2 DAYS SPDESC: ANTONIO PORTER MD ORDERED: URINE CULTURE Procedure Result URINE CULTURE Preliminary Preliminary 60,000 CFU/ML GRAM NEGATIVE RODS on 07/23/20 at 0736 FINAL ID= [ESCHERICHIA COLI] Testing Performed by: [place] [address] For Inquires, the Physician may contact the Microbiology department at [phone] ESCHERICHIA COLI Unless otherwise specified, Testing Performed by: [place] [address] For Inquires, the Physician may contact the Microbiology department at [phone] Signed PATIENT: CONSUELO CAMPBELL ACCOUNT: [id number] : 1950 LOCATION: [facility] AGE: 69 SEX: F EXAM STATUS: ADM IN ORD. PHYSICIAN: WILBERT LOFTON MD REASON: Pain, swelling, concern for DVT PROCEDURE: VENOUS LOWER EXTREMITY RIGHT EXAM: Right lower extremity venous Doppler sonogram. HISTORY: Pain and swelling. TECHNIQUE: Terry scale and color Doppler sonographic evaluation of the right lower extremity veins with spectral waveform analysis was performed. FINDINGS: There is normal color flow, normal compressibility and there are normal spectral waveforms in the common femoral, superficial femoral, popliteal, posterior tibial and greater saphenous veins. IMPRESSION: No Doppler evidence of lower extremity deep venous thrombosis. Electronically signed by: Herlinda Herrera MD (07/24/2020 9:22 AM) [id number] DICTATED and SIGNED BY: HERLINDA HERRERA MD DATE: 07/24/20 [id number] WHAT IS THE PURPOSE OF AN ADVANCE DIRECTIVE? (ALSO KNOWN A LIVING WILL OR HEALTHCARE POWER OF CORRECTIONAL GUARD) To articulate and document your wishes concerning medical treatment should you lose decision-making ability. To designate an individual, known as your healthcare agent or proxy, to ensure your wishes are honored should you no longer be able to speak for yourself. This includes, among other things, making decisions about when to withhold or withdraw life-sustaining treatment. WHERE CAN I FIND AN ADVANCE DIRECTIVE FORM? The National [employer] Organization has a list of advance directive forms for every state. We also recommend checking your state govern ents website for the most up-to-date forms. Find quick links to all state and territory government websites at [employer]. WHAT MUST I INCLUDE IN MY ADVANCE DIRECTIVE? The name and contact information of your healthcare agent/proxy. Answers to specific questions about your preferences for care if you become unable to speak for yourself. The forms and questions asked vary a bit from state to state. A sample question: Do you want to receive artificially provided nutrition or hydration when you are close to and/or permanently unconscious? Names and signatures of individuals who witness your signing your advance directive, if required. Not all states require witness signatures. The signature and seal of a nutritionist public health, if required by your state. Not all [facility] require advance directives to be notarized. [facility] has a list of all advance directive/living will requirements by state. WHAT ELSE WOULD BE GOOD TO INCLUDE IN MY ADVANCE DIRECTIVE? Detailed information about what procedures or types of care you would like to receive and what you wish to avoid at all costs that are not covered by the questions on the form. Would you want to take advantage of all life-support technologies if it would only postpone ? Would you want to use them if you were permanently unconscious? Would you want them if you were going through an advanced progressive illness? More general statements about your values regarding end-of-life care. What does a good mean and look like to you? For that matter, what defines a life wor th living? Do you define life by the intake of breath and nutrients? Is it defined by consciousness? At what point do you want to prolong it and at what point do you want to preserve resources for other people? Personal desires for body disposition in essence, what you want to happen to your body when you and plans for any memorial service(s) A list of people who cannot make healthcare decisions for you. Leave no room for ambiguity, which could lead to tensions between loved ones about your care as you are dying. HOW SHOULD I GO ABOUT IDENTIFYING MY HEALTHCARE AGENT/PROXY? An ideal person for the job is someone who: Knows you well. A spouse/partner, a family member, a close friend: all are good candidates. Excels at making difficult decisions under pressure. Is diplomatic and empathetic critical traits for balancing the needs, wants, and unpredictable emotions of a patients loved ones. Isnt afraid to ask tough questions, which invariably arise when discussing a dying individuals end-of-life care. Is easily reachable by email, phone, and/or text. Is or can easily be within physical proximity of where youre likely to receive care. Once [place] identified this person, how do I talk to them about what care I want and dont want at the end of life? Have multiple conversations with your healthcare agent about your wishes. Take them out to tea, have them over for dinner, go to a bar or library. Talk about what you want, and make sure you are heard and understood. If you see fit, and if your agent doesnt already know this information, you can share a bit about the personalities of the people who will be most invested in your health outcomes, and how best to handle these folks in situations when emotions will be running high. This can be a serious conversation or it can be full of laughs. You get to decide how the conversation plays out. WHAT IF MY HEALTHCARE AGENT/PROXY IS UNAVAILABLE TO EXECUTE THEIR DUTIES WHEN I AM DYING? It is important to appoint an alternative agent/proxy for exactly this reason. Identify and inform that person as you did your main agent/proxy, and list them as an alternate on your advance directive form. WHAT ABOUT THE TWO WITNESSES? ARE THERE ANY SPECIAL REQUIREMENTS FOR WHO CAN AND CANT SERVE IN THIS ROLE? In most states, witnesses cannot be: Your healthcare agent or proxy; Any of your care providers; Related to you by blood, adoption, or marriage; Entitled to any portion of your estate upon your . dpoa review> 20 min to portal Laboratory Tests Test 07/23/20 22:25 07/24/20 04:05 Vancomycin Level Trough 17.1 mcg/mL (10.0-20.0) Vancomycin Last Dose Date 07/22/20 Vancomycin Last Dose Time 2300 White Blood Count 7.6 x10^3/uL (4.0-11.0) Red Blood Count 3.23 x10^6/uL (3.50-5.40) Hemoglobin 10.1 g/dL (12.0-15.5) Hematocrit 31.0 % (36.0-47.0) Mean Corpuscular Volume 96 fL (79-100) Mean Corpuscular Hemoglobin 31 pg (25-35) Mean Corpuscular Hemoglobin Concent 33 g/dL (31-37) Red Cell Distribution Width 14.1 % (11.5-14.5) Platelet Count 238 x10^3/uL (140-400) Neutrophils (%) (Auto) 75 % (31-73) Lymphocytes (%) (Auto) 13 % (24-48) Monocytes (%) (Auto) 7 % (0-9) Eosinophils (%) (Auto) 4 % (0-3) Basophils (%) (Auto) 1 % (0-3) Neutrophils # (Auto) 5.8 x10^3/uL (1.8-7.7) Lymphocytes # (Auto) 1.0 x10^3/uL (1.0-4.8) Monocytes # (Auto) 0.5 x10^3/uL (0.0-1.1) Eosinophils # (Auto) 0.3 x10^3/uL (0.0-0.7) Basophils # (Auto) 0.0 x10^3/uL (0.0-0.2) Sodium Level 142 mmol/L (136-145) Potassium Level 3.9 mmol/L (3.5-5.1) Chloride Level 106 mmol/L (98-107) Carbon Dioxide Level 27 mmol/L (21-32) Anion Gap 9 (6-14) Blood Urea Nitrogen 16 mg/dL (7-20) Creatinine 1.4 mg/dL (0.6-1.0) Estimated GFR (Cockcroft-Gault) 37.4 Glucose Level 97 mg/dL (70-99) Uric Acid 5.3 mg/dL (2.6-6.0) Calcium Level 8.2 mg/dL (8.5-10.1) Assessment and Plan Assessmemt and Plan Problems Medical Problems: (1) Atrial fibrillation with RVR Status: Acute (2) Cellulitis of right lower extremity Status: Acute (3) Sepsis Status: Acute (4) UTI (urinary tract infection) Status: Acute Comment Review of Relevant I have reviewed the following items maria c (where applicable) has been applied. Labs Laboratory Tests Test 07/23/20 04:30 07/23/20 22:25 07/24/20 04:05 White Blood Count 13.2 x10^3/uL (4.0-11.0) 7.6 x10^3/uL (4.0-11.0) Red Blood Count 3.40 x10^6/uL (3.50-5.40) 3.23 x10^6/uL (3.50-5.40) Hemoglobin 10.5 g/dL (12.0-15.5) 10.1 g/dL (12.0-15.5) Hematocrit 32.7 % (36.0-47.0) 31.0 % (36.0-47.0) Mean Corpuscular Volume 96 fL (79-100) 96 fL (79-100) Mean Corpuscular Hemoglobin 31 pg (25-35) 31 pg (25-35) Mean Corpuscular Hemoglobin Concent 32 g/dL (31-37) 33 g/dL (31-37) Red Cell Distribution Width 14.9 % (11.5-14.5) 14.1 % (11.5-14.5) Platelet Count 244 x10^3/uL (140-400) 238 x10^3/uL (140-400) Neutrophils (%) (Auto) 87 % (31-73) 75 % (31-73) Lymphocytes (%) (Auto) 7 % (24-48) 13 % (24-48) Monocytes (%) (Auto) 4 % (0-9) 7 % (0-9) Eosinophils (%) (Auto) 1 % (0-3) 4 % (0-3) Basophils (%) (Auto) 0 % (0-3) 1 % (0-3) Neutrophils # (Auto) 11.5 x10^3/uL (1.8-7.7) 5.8 x10^3/uL (1.8-7.7) Lymphocytes # (Auto) 0.9 x10^3/uL (1.0-4.8) 1.0 x10^3/uL (1.0-4.8) Monocytes # (Auto) 0.6 x10^3/uL (0.0-1.1) 0.5 x10^3/uL (0.0-1.1) Eosinophils # (Auto) 0.1 x10^3/uL (0.0-0.7) 0.3 x10^3/uL (0.0-0.7) Basophils # (Auto) 0.1 x10^3/uL (0.0-0.2) 0.0 x10^3/uL (0.0-0.2) Sodium Level 140 mmol/L (136-145) 142 mmol/L (136-145) Potassium Level 3.8 mmol/L (3.5-5.1) 3.9 mmol/L (3.5-5.1) Chloride Level 104 mmol/L (98-107) 106 mmol/L (98-107) Carbon Dioxide Level 25 mmol/L (21-32) 27 mmol/L (21-32) Anion Gap 11 (6-14) 9 (6-14) Blood Urea Nitrogen 19 mg/dL (7-20) 16 mg/dL (7-20) Creatinine 1.4 mg/dL (0.6-1.0) 1.4 mg/dL (0.6-1.0) Estimated GFR (Cockcroft-Gault) 37.4 37.4 Glucose Level 98 mg/dL (70-99) 97 mg/dL (70-99) Calcium Level 7.8 mg/dL (8.5-10.1) 8.2 mg/dL (8.5-10.1) Vancomycin Level Trough 17.1 mcg/mL (10.0-20.0) Vancomycin Last Dose Date 07/22/20 Vancomycin Last Dose Time 2300 Uric Acid 5.3 mg/dL (2.6-6.0) Laboratory Tests Test 07/23/20 22:25 07/24/20 04:05 Vancomycin Level Trough 17.1 mcg/mL (10.0-20.0) Vancomycin Last Dose Date 07/22/20 Vancomycin Last Dose Time 2300 White Blood Count 7.6 x10^3/uL (4.0-11.0) Red Blood Count 3.23 x10^6/uL (3.50-5.40) Hemoglobin 10.1 g/dL (12.0-15.5) Hematocrit 31.0 % (36.0-47.0) Mean Corpuscular Volume 96 fL (79-100) Mean Corpuscular Hemoglobin 31 pg (25-35) Mean Corpuscular Hemoglobin Concent 33 g/dL (31-37) Red Cell Distribution Width 14.1 % (11.5-14.5) Platelet Count 238 x10^3/uL (140-400) Neutrophils (%) (Auto) 75 % (31-73) Lymphocytes (%) (Auto) 13 % (24-48) Monocytes (%) (Auto) 7 % (0-9) Eosinophils (%) (Auto) 4 % (0-3) Basophils (%) (Auto) 1 % (0-3) Neutrophils # (Auto) 5.8 x10^3/uL (1.8-7.7) Lymphocytes # (Auto) 1.0 x10^3/uL (1.0-4.8) Monocytes # (Auto) 0.5 x10^3/uL (0.0-1.1) Eosinophils # (Auto) 0.3 x10^3/uL (0.0-0.7) Basophils # (Auto) 0.0 x10^3/uL (0.0-0.2) Sodium Level 142 mmol/L (136-145) Potassium Level 3.9 mmol/L (3.5-5.1) Chloride Level 106 mmol/L (98-107) Carbon Dioxide Level 27 mmol/L (21-32) Anion Gap 9 (6-14) Blood Urea Nitrogen 16 mg/dL (7-20) Creatinine 1.4 mg/dL (0.6-1.0) Estimated GFR (Cockcroft-Gault) 37.4 Glucose Level 97 mg/dL (70-99) Uric Acid 5.3 mg/dL (2.6-6.0) Calcium Level 8.2 mg/dL (8.5-10.1) Microbiology 07/22/20 Urine Culture - Preliminary, Resulted 07/22/20 Blood Culture - Preliminary, Resulted NO GROWTH AFTER 2 DAYS Medications Current Medications Sodium Chloride 1,000 ml @ 1,000 mls/hr Q1H IV Last administered on 07/21/20at 22:58; Start 07/21/20 at 22:30; Stop 07/21/20 at 23:29; Status DC Diltiazem HCl (Cardizem Iv Push) 10 mg 1X ONCE IVP ; Start 07/21/20 at 22:00; Stop 07/21/20 at 21:55; Status DC Sodium Chloride 1,000 ml @ 1,000 mls/hr 1X ONCE IV Last administered on 07/21/20at 22:58; Start 07/21/20 at 22:30; Stop 07/21/20 at 23:29; Status DC Diltiazem HCl (Cardizem Iv Push) 20 mg 1X ONCE IVP Last administered on 07/21/20at 22:59; Start 07/21/20 at 22:30; Stop 07/21/20 at 22:31; Status DC Vancomycin HCl (Vanco Per Pharmacy) 1 each PRN DAILY PRN MC SEE COMMENTS Last administered on 07/24/20at 07:39; Start 07/21/20 at 22:15 Vancomycin HCl 2 gm/Sodium Chloride 500 ml @ 250 mls/hr 1X ONCE IV Last administered on 07/21/20at 23:31; Start 07/21/20 at 23:30; Stop 07/22/20 at 01:29; Status DC Acetaminophen (Tylenol) 650 mg 1X ONCE PO Last administered on 07/22/20at 01:16; Start 07/22/20 at 01:00; Stop 07/22/20 at 01:01; Status DC Vancomycin HCl 2 gm/Sodium Chloride 500 ml @ 250 mls/hr Q24H IV Last administered on 07/23/20at 23:20; Start 07/22/20 at 23:00 Vancomycin HCl (Vancomycin Trough Level) 1 each 1X ONCE MC Last administered on 07/23/20at 22:30; Start 07/23/20 at 22:30; Stop 07/23/20 at 22:31; Status DC Ceftriaxone Sodium (Rocephin) 1 gm 1X ONCE IVP Last administered on 07/22/20at 04:22; Start 07/22/20 at 04:00; Stop 07/22/20 at 04:01; Status DC Sodium Chloride 1,000 ml @ 125 mls/hr 1X ONCE IV Last administered on 07/22/20at 05:23; Start 07/22/20 at 05:30; Stop 07/22/20 at 13:29; Status DC Piperacillin Sod/ Tazobactam Sod (Zosyn Per Pharmacy) 1 each PRN DAILY PRN MC SEE COMMENTS; Start 07/22/20 at 05:15 Piperacillin Sod/ Tazobactam Sod 3.375 gm/Sodium Chloride 50 ml @ 100 mls/hr Q6HRS IV Last administered on 07/24/20at 06:13; Start 07/22/20 at 06:00 Lactobacillus Rhamnosus (Culturelle) 1 cap BID PO Last administered on 07/24/20at 07:52; Start 07/22/20 at 09:00 Fentanyl Citrate (Fentanyl 2ml Vial) 50 mcg PRN Q2HR PRN IVP PAIN Last administered on 07/23/20at 08:15; Start 07/22/20 at 10:30; Stop 07/23/20 at 1 0:06; Status DC Metoprolol Succinate (Toprol Xl) 50 mg DAILY PO Last administered on 07/23/20at 10:17; Start 07/22/20 at 11:00 Rivaroxaban (Xarelto) 20 mg DAILYWSUP PO Last administered on 07/23/20at 17:17; Start 07/22/20 at 17:00 Amiodarone HCl (Cordarone) 200 mg DAILY PO Last administered on 07/24/20at 07:53; Start 07/22/20 at 11:00 Digoxin (Lanoxin) 250 mcg 1X ONCE IV Last administered on 07/22/20at 11:22; Start 07/22/20 at 10:45; Stop 07/22/20 at 10:46; Status DC Acetaminophen (Tylenol) 650 mg PRN Q6HRS PRN PO MILD PAIN / TEMP > 100.3'F Last administered on 07/22/20at 12:49; Start 07/22/20 at 11:30 Furosemide (Lasix) 40 mg 1X ONCE IVP Last administered on 07/22/20at 15:08; Start 07/22/20 at 13:45; Stop 07/22/20 at 13:48; Status DC Potassium Phos/ Sodium Phos (Phos-Nak) 1 pkt Q12HR PO Last administered on 07/23/20at 10:18; Start 07/22/20 at 17:00; Stop 07/23/20 at 09:01; Status DC Furosemide (Lasix) 20 mg 1X ONCE IVP Last administered on 07/23/20at 08:15; Start 07/23/20 at 07:00; Stop 07/23/20 at 07:01; Status DC Acetaminophen/ Hydrocodone Bitart (Lortab 7.5/325) 1 tab PRN Q6HRS PRN PO SEVERE PAIN Last administered on 07/23/20at 16:14; Start 07/23/20 at 10:15 Acetaminophen/ Hydrocodone Bitart (Lortab 10/325) 1 tab PRN Q6HRS PRN PO SEVERE PAIN 2ND CHOICE Last administered on 07/24/20at 08:38; Start 07/23/20 at 10:15 Acetaminophen/ Hydrocodone Bitart (Lortab 5/325) 1 tab PRN Q4HRS PRN PO MODERATE PAIN Last administered on 07/24/20at 04:48; Start 07/23/20 at 10:15 Digoxin (Lanoxin) 250 mcg 1X ONCE IV Last administered on 07/23/20at 13:13; Start 07/23/20 at 12:45; Stop 07/23/20 at 12:46; Status DC Active Scripts Active Reported Amiodarone Hcl 100 Mg Tablet 1 Tab PO DAILY 30 Days Micardis (Telmisartan) 40 Mg Tablet 40 Mg PO DAILY Valtrex (Valacyclovir Hcl) 1,000 Mg Tablet 1 Tab PO DAILY Metoprolol Succinate ( Xl ) (Metoprolol Succinate) 100 Mg Tab.er.24h 50 Mg PO DAILY Xarelto (Rivaroxaban) 20 Mg Tablet 1 Tab PO DAILY 30 Days with food Vitals/I & O Vital Sign - Last 24 Hours 07/23/20 07/23/20 07/23/20 07/23/20 10:17 10:17 10:24 11:00 Temp 98.0 98.0 Pulse 120 120 89 Resp 18 B/P (MAP) 121/56 121/56 105/55 (72) Pulse Ox 97 O2 Delivery Room Air Room Air 07/23/20 07/23/20 07/23/20 07/23/20 11:50 13:13 15:00 16:14 Temp 98.3 98.3 Pulse 89 70 Resp 18 B/P (MAP) 105/55 112/56 (74) Pulse Ox 94 96 O2 Delivery Room Air Room Air Room Air 07/23/20 07/23/20 07/23/20 07/23/20 16:59 19:29 20:00 21:47 Temp 98.2 98.2 Pulse 98 Resp 18 B/P (MAP) 101/52 (68) Pulse Ox 97 97 O2 Delivery Room Air Room Air Room Air Room Air O2 Flow Rate 2.0 07/23/20 07/24/20 07/24/20 07/24/20 22:19 00:38 02:24 04:48 Temp 98.2 98.1 98.2 98.1 Pulse 96 96 Resp 18 18 B/P (MAP) 110/55 (73) 101/45 (63) Pulse Ox 98 98 99 99 O2 Delivery Room Air Room Air Room Air Room Air O2 Flow Rate 2.0 2.0 07/24/20 07/24/20 07/24/20 07/24/20 04:50 05:46 07:45 07:53 Pulse 92 B/P (MAP) 122/54 Pulse Ox 99 99 O2 Delivery Room Air Room Air Room Air O2 Flow Rate 2.0 2.0 07/24/20 08:38 Pulse Ox 99 O2 Delivery Room Air Intake and Output 07/23/20 07/23/20 07/24/20 15:00 23:00 07:00 Intake Total 450 ml 350 ml 850 ml Output Total 300 ml Balance 450 ml 350 ml 550 ml Justicifation of Admission Dx: Justifications for Admission: Justification of Admission Dx: Yes CHF: Cardiac Arrhythmias (AFIB with RVR) FARA PEDRO MD Jul 24, 2020 08:53
--- NOTE | 2020-07-24 09:24 | RAD ---
EXAM: Right lower extremity venous Doppler sonogram. HISTORY: Pain and swelling. TECHNIQUE: Terry scale and color Doppler sonographic evaluation of the right lower extremity veins wit h spectral waveform analysis was performed. FINDINGS: There is normal color flow, normal compressibility and there are normal spectral waveforms in the common femoral, superficial femoral, popliteal, posterior tibial and greater saphenous veins. IMPRESSION: No Doppler evidence of lower extremity deep venous thrombosis. Electronically signed by: Herlinda Mohamud MD (07/24/2020 9:22 AM) [id number]
[2020-07-24] MEDS: METOPROLOL SUCC 24HR ER 50 MG TAB.ER.24H. PO SCH (09:48)
--- NOTE | 2020-07-24 10:47 | PDOC ---
IVETTE HERNANDEZ UNIVERSITY RELATIONS DIRECTOR 07/24/20 1047: CARDIO Progress Notes Date and Time Date of Service 07/24/20 Time of Evaluation 1045 Subjective Subjective: No Chest Pain, No Palpitations, Other (c/o RLE edema ) Vitals Vitals Vital Signs Date Time Temp Pulse Resp B/P (MAP) Pulse Ox O2 Delivery O2 Flow Rate FiO2 07/24/20 09:48 91 128/58 07/24/20 09:08 Room Air 07/24/20 08:38 99 07/24/20 07:00 98.2 18 98.2 07/24/20 05:46 2.0 Weight Weight [ ] Input and Output Intake and Output Intake and Output 07/24/20 07:00 Intake Total 1650 ml Output Total 300 ml Balance 1350 ml Intake Oral 1000 ml IV Total 650 ml Output Urine Total 300 ml Laboratory Labs Laboratory Tests Test 07/23/20 22:25 07/24/20 04:05 Vancomycin Level Trough 17.1 mcg/mL (10.0-20.0) Vancomycin Last Dose Date 07/22/20 Vancomycin Last Dose Time 2300 White Blood Count 7.6 x10^3/uL (4.0-11.0) Red Blood Count 3.23 x10^6/uL (3.50-5.40) Hemoglobin 10.1 g/dL (12.0-15.5) Hematocrit 31.0 % (36.0-47.0) Mean Corpuscular Volume 96 fL (79-100) Mean Corpuscular Hemoglobin 31 pg (25-35) Mean Corpuscular Hemoglobin Concent 33 g/dL (31-37) Red Cell Distribution Width 14.1 % (11.5-14.5) Platelet Count 238 x10^3/uL (140-400) Neutrophils (%) (Auto) 75 % (31-73) Lymphocytes (%) (Auto) 13 % (24-48) Monocytes (%) (Auto) 7 % (0-9) Eosinophils (%) (Auto) 4 % (0-3) Basophils (%) (Auto) 1 % (0-3) Neutrophils # (Auto) 5.8 x10^3/uL (1.8-7.7) Lymphocytes # (Auto) 1.0 x10^3/uL (1.0-4.8) Monocytes # (Auto) 0.5 x10^3/uL (0.0-1.1) Eosinophils # (Auto) 0.3 x10^3/uL (0.0-0.7) Basophils # (Auto) 0.0 x10^3/uL (0.0-0.2) Sodium Level 142 mmol/L (136-145) Potassium Level 3.9 mmol/L (3.5-5.1) Chloride Level 106 mmol/L (98-107) Carbon Dioxide Level 27 mmol/L (21-32) Anion Gap 9 (6-14) Blood Urea Nitrogen 16 mg/dL (7-20) Creatinine 1.4 mg/dL (0.6-1.0) Estimated GFR (Cockcroft-Gault) 37.4 Glucose Level 97 mg/dL (70-99) Uric Acid 5.3 mg/dL (2.6-6.0) Calcium Level 8.2 mg/dL (8.5-10.1) Microbiology Micro Microbiology 07/22/20 Urine Culture - Preliminary, Resulted 07/22/20 Blood Culture - Preliminary, Resulted NO GROWTH AFTER 2 DAYS Physical Exam HEENT: Neck Supple W Full Motion Chest: Symmetric LUNGS: Other (diminished bases) Heart: irregularly irregular Abdomen: Soft N/T Extremities: Other (1-2+ LLE edema with mild erythema. ) Neurology: alert, oriented, follow commands Assessment Assessment 1. Acute on chronic probable diastolic CHF; improved with diuresis 2. Recurrent AFIB; Follows with [facility], Dr. Al. Underwent CV 07/08/20; records obtained, but unclear if she had successful conversion to SR. 3. Hypertension; low end 4. H/o NICM; LVEF perviously 25-30% 2015. Cath 05/2015 with normal coronaries. Echo 2018 shows LVEF recovery. NATASHA 07/08/20 with EV 50-55%. 5. CKD 6. Leukocytosis, fevers, UTI 7. RLE cellulitis. edema. US negative for DVT Recommendations Lasix therapy Metoprolol for rate control Amiodarone for rhythm control Xarelto for stroke prophylaxis May need AF ablation Ongoing treatment of UTI, cellulitis as per IM F/u with primary tabber, Dr. Al upon discharge Justicifation of Admission Dx: Justifications for Admission: Justification of Admission Dx: Yes CHF: Cardiac Arrhythmias (AFIB with RVR) MARTA MENDOZA MD 07/25/20 1300: CARDIO Progress Notes Assessment Assessment Patient seen and examined. Agree with BACTERIOLOGIST SOIL's assessment and plan. Acute on chronic diastolic heart failure better compensated with diuresis Recurrent AF rate better controlled Continue amiodarone and xarelto Possible AF ablation therapy as an outpatient Follow-up with primary tabber IVETTE HERNANDEZ APRN Jul 24, 2020 10:47 MARTA MENDOZA MD Jul 25, 2020 13:00
--- NOTE | 2020-07-24 13:05 | NUR ---
SS following up with discharge planning. SS reviewed pt chart and discussed with pt RN. Pt is currently on room air. Pt on IV Vancomycin and IV Zosyn. Pt had lower extremity ultrasound today. Cardiology following. Discharge plan is currently to home when medically ready. SS will continue to follow for discharge planning.
[2020-07-24] MEDS ORDERED: FUROSEMIDE 40 MG/4 ML VIAL. IVP ONE (14:15)
[2020-07-24] MEDS ORDERED: POTASSIUM CHLORIDE 20 MEQ TABLET.ER. PO ONE (14:15)
[2020-07-24] MEDS ORDERED: POTASSIUM BICARB 10 MEQ EFFERVESCENT TABLET. FT ONE (15:30)
[2020-07-24] MEDS ORDERED: MAGNESIUM SULFATE 2GM 50 ML IV SCH (15:30)
[2020-07-24] MEDS ORDERED: POTASSIUM BICARB 20 MEQ EFFERVESCENT TABLET. PO SCH (15:30)
[2020-07-24] MEDS ORDERED: POTASSIUM BICARB 20 MEQ EFFERVESCENT TABLET. FT ONE (15:30)
[2020-07-24] MEDS ORDERED: ELECTROLYTE (NON-ICU) PROTOCOL. MC PRN (15:45)
[2020-07-24] MEDS: RIVAROXABAN 10 MG TABLET. PO SCH (17:23)
[2020-07-24] MEDS ORDERED: POTASSIUM & SODIUM PHOSPHATES PACKET. PO SCH (21:00)
[2020-07-24] MEDS: VANCOMYCIN 2 GM in IV NORMAL SALINE 500ML BAG 500 ML IV SCH (23:23)
[2020-07-25] VITALS (7 sets, daily range): BP systolic 116–133; BP diastolic 48–71
[2020-07-25] MEDS: PIPERACILLIN/TAZOBACTAM 3.375 GM in IV NORMAL SALINE 50ML 50 ML IV SCH ×2 (01:35→06:23)
[2020-07-25] MEDS: HYDROcodone/APAP 5/325MG 1 TAB TABLET PO PRN ×2 (01:40→21:31)
[2020-07-25 04:40] LABS: BASO # 0.1 x10^3/uL (0.0-0.2); BASO % 1 % (0-3); EOS # 0.3 x10^3/uL (0.0-0.7); EOS % 6 % (0-3); HEMATOCRIT 31.4 % (36.0-47.0); HEMOGLOBIN 10.1 g/dL (12.0-15.5); LYMPH % 16 % (24-48); MEAN CORPUSCULAR HEMOGLOBIN 31 pg (25-35); MEAN CORPUSCULAR HGB CONC 32 g/dL (31-37); MEAN CORPUSCULAR VOLUME 96 fL (79-100); MONO # 0.5 x10^3/uL (0.0-1.1); MONO % 8 % (0-9); NEUT # 4.4 x10^3/uL (1.8-7.7); NEUT % 70 % (31-73); PLATELET COUNT 285 x10^3/uL (140-400); RED BLOOD COUNT 3.27 x10^6/uL (3.50-5.40); RED CELL DISTRIBUTION WIDTH 14.2 % (11.5-14.5); WHITE BLOOD COUNT 6.3 x10^3/uL (4.0-11.0)
[2020-07-25 04:49] LABS: CALCIUM 8.4 mg/dL (8.5-10.1); CREATININE 1.3 mg/dL (0.6-1.0); GFR 40.7; POTASSIUM 4.1 mmol/L (3.5-5.1)
--- NOTE | 2020-07-25 08:29 | PDOC ---
PROGRESS NOTES Date of Service: DATE: 07/25/20 TIME: 08:27 Chief Complaint Chief Complaint IMPRESSION Sepsis and atrial fibrillation with rapid ventricular response, cellulitis and leukocytosis and urinary tract infection. ELECTROLYTE imbalance H/o NICM; LVEF perviously 25-30% 2015. Cath 05/2015 with normal coronaries. Echo 2018 shows LVEF recovery. NATASHA 07/08/20 with EV 50-55%. admitted to the ICU. IV fluids, IV antibiotics. Consult Cardiology. Consult Infectious Disease. Home meds. Deep venous thrombosis prophylaxis. Full code. Long-term prognosis guarded. replace lytes 60,000 CFU/ML GRAM NEGATIVE RODS on 07/23/20 at 0736 FINAL ID= [ESCHERICHIA COLI] History of Present Illness History of Present Illness The patient is a pleasant 69-year-old female who has a previous history of atrial fibrillation 5 years ago, now she presents with another rapid heart rate, has been occurring for a couple of days. She thought it would go away. She has some associated shortness of breath and some left arm discomfort. She apparently was converted recently as an outpatient from her recurrent AFib. She has also increased her metoprolol. She is already on Xarelto. I discussed the case with ER physician. The patient has been admitted to the ICU. She has AFib with RVR and sepsis as well with cellulitis on the right UPPER AND lower extremity. 07/25/2020 Afebrile, no acute events overnight. She complains of pain in her right lower extremity; will discontinue IV pain medications and add orals. Monitor kidney function. Will also continue metoprolol and amiodarone for rate control. MRSA PCR pending, continue vancomycin and Zosyn for now. Appreciate ID input on the management of this patient. No Doppler evidence of lower extremity deep venous thrombosis. CR 1.3 07/24/2020 Afebrile, no acute events overnight. She complains of pain in her right lower extremity; will discontinue IV pain medications and add orals. 90 mL net fluid output overnight; continue diuresis with Lasix IV x1. Monitor kidney function. Will also continue metoprolol and amiodarone for rate control. MRSA PCR pending, continue vancomycin and Zosyn for now. Appreciate ID input on the management of this patient. No Doppler evidence of lower extremity deep venous thrombosis. 07/23/2020 Afebrile, no acute events overnight. She complains of pain in her right lower extremity; will discontinue IV pain medications and add orals. 90 mL net fluid output overnight; continue diuresis with Lasix IV x1. Monitor kidney function. Will also continue metoprolol and amiodarone for rate control. MRSA PCR pending, continue vancomycin and Zosyn for now. Appreciate ID input on the management of this patient. Vitals Vitals Vital Signs Date Time Temp Pulse Resp B/P (MAP) Pulse Ox O2 Delivery O2 Flow Rate FiO2 07/25/20 02:10 98 Room Air 2.0 07/25/20 02:03 98.0 85 18 116/52 (73) 98.0 Physical Exam General: Alert, Oriented X3, Cooperative, No acute distress Heart: Other (AFIB, rate mostly controlled ) Lungs: Clear Abdomen: Soft, Other (obese ) Extremities: No cyanosis, Other (1+ bilalteral LE edema right upper leg cellulitis) Skin: No significant lesion, Other (Erythema to RLE ) Labs LABS URINE CULTURE Final Final 60,000 CFU/ML GRAM NEGATIVE RODS on 07/23/20 at 0736 FINAL ID= [ESCHERICHIA COLI] Testing Performed by: [address] [address] For Inquires, the Physician may contact the Microbiology department at [phone] ESCHERICHIA COLI ANTIMICROBIAL SUSCEPTIBILITY Final Comment NEG [address] 56 ESCHERICHIA COLI ANTIBIOTIC RESULT INTERPRETATION AMPICILLIN/SULBACTAM <=4/2 S AMIKACIN <=16 S AMPICILLIN <=8 S AMOXICILLIN/K CLAVULANATE <=8/4 S AZTREONAM <=4 S CEFTRIAXONE <=1 S CEFTAZIDIME <=1 S CEFOTAXIME <=2 S CEFOXITIN <=8 S CEFAZOLIN <=2 S CIPROFLOXACIN <=0.25 S CEFEPIME <=2 S CEFUROXIME <=4 S CEFTAZIDIME/AVIBACTAM <=4 S ERTAPENEM <=0.5 S NITROFURANTOIN <=32 S GENTAMICIN <=2 S LEVOFLOXACIN <=0.5 S MEROPENEM <=1 S PIPERACILLIN/TAZOBACTAM <=8 S TRIMETHOPRIM/SULFAMETHOXAZOLE >2/38 R TETRACYCLINE <=4 S TOBRAMYCIN <=2 S Unless otherwise specified, Testing Performed by: RAJI: URINE CULTURE Procedure Result URINE CULTURE Preliminary Preliminary 60,000 CFU/ML GRAM NEGATIVE RODS on 07/23/20 at 0736 FINAL ID= [ESCHERICHIA COLI] Testing Performed by: [place] [address] For Inquires, the Physician may contact the Microbiology department at [phone] ESCHERICHIA COLI Unless otherwise specified, Testing Performed by: [address] [address] For Inquires, the Physician may contact the Microbiology department at [phone] Laboratory Tests Test 07/25/20 03:40 White Blood Count 6.3 x10^3/uL (4.0-11.0) Red Blood Count 3.27 x10^6/uL (3.50-5.40) Hemoglobin 10.1 g/dL (12.0-15.5) Hematocrit 31.4 % (36.0-47.0) Mean Corpuscular Volume 96 fL (79-100) Mean Corpuscular Hemoglobin 31 pg (25-35) Mean Corpuscular Hemoglobin Concent 32 g/dL (31-37) Red Cell Distribution Width 14.2 % (11.5-14.5) Platelet Count 285 x10^3/uL (140-400) Neutrophils (%) (Auto) 70 % (31-73) Lymphocytes (%) (Auto) 16 % (24-48) Monocytes (%) (Auto) 8 % (0-9) Eosinophils (%) (Auto) 6 % (0-3) Basophils (%) (Auto) 1 % (0-3) Neutrophils # (Auto) 4.4 x10^3/uL (1.8-7.7) Lymphocytes # (Auto) 1.0 x10^3/uL (1.0-4.8) Monocytes # (Auto) 0.5 x10^3/uL (0.0-1.1) Eosinophils # (Auto) 0.3 x10^3/uL (0.0-0.7) Basophils # (Auto) 0.1 x10^3/uL (0.0-0.2) Sodium Level 143 mmol/L (136-145) Potassium Level 4.1 mmol/L (3.5-5.1) Chloride Level 107 mmol/L (98-107) Carbon Dioxide Level 29 mmol/L (21-32) Anion Gap 7 (6-14) Blood Urea Nitrogen 13 mg/dL (7-20) Creatinine 1.3 mg/dL (0.6-1.0) Estimated GFR (Cockcroft-Gault) 40.7 Glucose Level 95 mg/dL (70-99) Calcium Level 8.4 mg/dL (8.5-10.1) Assessment and Plan Assessmemt and Plan Problems Medical Problems: (1) Atrial fibrillation with RVR Status: Acute (2) Cellulitis of right lower extremity Status: Acute (3) Sepsis Status: Acute (4) UTI (urinary tract infection) Status: Acute Comment Review of Relevant I have reviewed the following items maria c (where applicable) has been applied. Labs Laboratory Tests Test 07/23/20 22:25 07/24/20 04:05 07/25/20 03:40 Vancomycin Level Trough 17.1 mcg/mL (10.0-20.0) Vancomycin Last Dose Date 07/22/20 Vancomycin Last Dose Time 2300 White Blood Count 7.6 x10^3/uL (4.0-11.0) 6.3 x10^3/uL (4.0-11.0) Red Blood Count 3.23 x10^6/uL (3.50-5.40) 3.27 x10^6/uL (3.50-5.40) Hemoglobin 10.1 g/dL (12.0-15.5) 10.1 g/dL (12.0-15.5) Hematocrit 31.0 % (36.0-47.0) 31.4 % (36.0-47.0) Mean Corpuscular Volume 96 fL (79-100) 96 fL (79-100) Mean Corpuscular Hemoglobin 31 pg (25-35) 31 pg (25-35) Mean Corpuscular Hemoglobin Concent 33 g/dL (31-37) 32 g/dL (31-37) Red Cell Distribution Width 14.1 % (11.5-14.5) 14.2 % (11.5-14.5) Platelet Count 238 x10^3/uL (140-400) 285 x10^3/uL (140-400) Neutrophils (%) (Auto) 75 % (31-73) 70 % (31-73) Lymphocytes (%) (Auto) 13 % (24-48) 16 % (24-48) Monocytes (%) (Auto) 7 % (0-9) 8 % (0-9) Eosinophils (%) (Auto) 4 % (0-3) 6 % (0-3) Basophils (%) (Auto) 1 % (0-3) 1 % (0-3) Neutrophils # (Auto) 5.8 x10^3/uL (1.8-7.7) 4.4 x10^3/uL (1.8-7.7) Lymphocytes # (Auto) 1.0 x10^3/uL (1.0-4.8) 1.0 x10^3/uL (1.0-4.8) Monocytes # (Auto) 0.5 x10^3/uL (0.0-1.1) 0.5 x10^3/uL (0.0-1.1) Eosinophils # (Auto) 0.3 x10^3/uL (0.0-0.7) 0.3 x10^3/uL (0.0-0.7) Basophils # (Auto) 0.0 x10^3/uL (0.0-0.2) 0.1 x10^3/uL (0.0-0.2) Sodium Level 142 mmol/L (136-145) 143 mmol/L (136-145) Potassium Level 3.9 mmol/L (3.5-5.1) 4.1 mmol/L (3.5-5.1) Chloride Level 106 mmol/L (98-107) 107 mmol/L (98-107) Carbon Dioxide Level 27 mmol/L (21-32) 29 mmol/L (21-32) Anion Gap 9 (6-14) 7 (6-14) Blood Urea Nitrogen 16 mg/dL (7-20) 13 mg/dL (7-20) Creatinine 1.4 mg/dL (0.6-1.0) 1.3 mg/dL (0.6-1.0) Estimated GFR (Cockcroft-Gault) 37.4 40.7 Glucose Level 97 mg/dL (70-99) 95 mg/dL (70-99) Uric Acid 5.3 mg/dL (2.6-6.0) Calcium Level 8.2 mg/dL (8.5-10.1) 8.4 mg/dL (8.5-10.1) Laboratory Tests Test 07/25/20 03:40 White Blood Count 6.3 x10^3/uL (4.0-11.0) Red Blood Count 3.27 x10^6/uL (3.50-5.40) Hemoglobin 10.1 g/dL (12.0-15.5) Hematocrit 31.4 % (36.0-47.0) Mean Corpuscular Volume 96 fL (79-100) Mean Corpuscular Hemoglobin 31 pg (25-35) Mean Corpuscular Hemoglobin Concent 32 g/dL (31-37) Red Cell Distribution Width 14.2 % (11.5-14.5) Platelet Count 285 x10^3/uL (140-400) Neutrophils (%) (Auto) 70 % (31-73) Lymphocytes (%) (Auto) 16 % (24-48) Monocytes (%) (Auto) 8 % (0-9) Eosinophils (%) (Auto) 6 % (0-3) Basophils (%) (Auto) 1 % (0-3) Neutrophils # (Auto) 4.4 x10^3/uL (1.8-7.7) Lymphocytes # (Auto) 1.0 x10^3/uL (1.0-4.8) Monocytes # (Auto) 0.5 x10^3/uL (0.0-1.1) Eosinophils # (Auto) 0.3 x10^3/uL (0.0-0.7) Basophils # (Auto) 0.1 x10^3/uL (0.0-0.2) Sodium Level 143 mmol/L (136-145) Potassium Level 4.1 mmol/L (3.5-5.1) Chloride Level 107 mmol/L (98-107) Carbon Dioxide Level 29 mmol/L (21-32) Anion Gap 7 (6-14) Blood Urea Nitrogen 13 mg/dL (7-20) Creatinine 1.3 mg/dL (0.6-1.0) Estimated GFR (Cockcroft-Gault) 40.7 Glucose Level 95 mg/dL (70-99) Calcium Level 8.4 mg/dL (8.5-10.1) Microbiology 07/22/20 Urine Culture - Preliminary, Resulted 07/22/20 Blood Culture - Preliminary, Resulted NO GROWTH AFTER 3 DAYS Medications Current Medications Sodium Chloride 1,000 ml @ 1,000 mls/hr Q1H IV Last administered on 07/21/20at 22:58; Start 07/21/20 at 22:30; Stop 07/21/20 at 23:29; Status DC Diltiazem HCl (Cardizem Iv Push) 10 mg 1X ONCE IVP ; Start 07/21/20 at 22:00; Stop 07/21/20 at 21:55; Status DC Sodium Chloride 1,000 ml @ 1,000 mls/hr 1X ONCE IV Last administered on at 22:58; Start 07/21/20 at 22:30; Stop 07/21/20 at 23:29; Status DC Diltiazem HCl (Cardizem Iv Push) 20 mg 1X ONCE IVP Last administered on 07/21/20at 22:59; Start 07/21/20 at 22:30; Stop 07/21/20 at 22:31; Status DC Vancomycin HCl (Vanco Per Pharmacy) 1 each PRN DAILY PRN MC SEE COMMENTS Last administered on 07/24/20at 07:39; Start 07/21/20 at 22:15 Vancomycin HCl 2 gm/Sodium Chloride 500 ml @ 250 mls/hr 1X ONCE IV Last administered on 07/21/20at 23:31; Start 07/21/20 at 23:30; Stop 07/22/20 at 01:29; Status DC Acetaminophen (Tylenol) 650 mg 1X ONCE PO Last administered on 07/22/20at 01:16; Start 07/22/20 at 01:00; Stop 07/22/20 at 01:01; Status DC Vancomycin HCl 2 gm/Sodium Chloride 500 ml @ 250 mls/hr Q24H IV Last administered on 07/24/20at 23:23; Start 07/22/20 at 23:00 Vancomycin HCl (Vancomycin Trough Level) 1 each 1X ONCE MC Last administered on 07/23/20at 22:30; Start 07/23/20 at 22:30; Stop 07/23/20 at 22:31; Status DC Ceftriaxone Sodium (Rocephin) 1 gm 1X ONCE IVP Last administered on 07/22/20at 04:22; Start 07/22/20 at 04:00; Stop 07/22/20 at 04:01; Status DC Sodium Chloride 1,000 ml @ 125 mls/hr 1X ONCE IV Last administered on 07/22/20at 05:23; Start 07/22/20 at 05:30; Stop 07/22/20 at 13:29; Status DC Piperacillin Sod/ Tazobactam Sod (Zosyn Per Pharmacy) 1 each PRN DAILY PRN MC SEE COMMENTS; Start 07/22/20 at 05:15 Piperacillin Sod/ Tazobactam Sod 3.375 gm/Sodium Chloride 50 ml @ 100 mls/hr Q6HRS IV Last administered on 07/25/20 06:23; Start 07/22/20 at 06:00 Lactobacillus Rhamnosus (Culturelle) 1 cap BID PO Last administered on 07/24/20 20:58; Start 07/22/20 at 09:00 Fentanyl Citrate (Fentanyl 2ml Vial) 50 mcg PRN Q2HR PRN IVP PAIN Last administered on 07/23/20 08:15; Start 07/22/20 at 10:30; Stop 07/23/20 at 10:06; Status DC Metoprolol Succinate (Toprol Xl) 50 mg DAILY PO Last administered on 07/24/20 09:48; Start 07/22/20 at 11:00 Rivaroxaban (Xarelto) 20 mg DAILYWSUP PO Last administered on 07/24/20 17:23; Start 07/22/20 at 17:00 Amiodarone HCl (Cordarone) 200 mg DAILY PO Last administered on 07/24/20 07:53; Start 07/22/20 at 11:00 Digoxin (Lanoxin) 250 mcg 1X ONCE IV Last administered on 07/22/20 11:22; Start 07/22/20 at 10:45; Stop 07/22/20 at 10:46; Status DC Acetaminophen (Tylenol) 650 mg PRN Q6HRS PRN PO MILD PAIN / TEMP > 100.3'F Last administered on 07/22/20 12:49; Start 07/22/20 at 11:30 Furosemide (Lasix) 40 mg 1X ONCE IVP Last administered on 07/22/20at 15:08; Start 07/22/20 at 13:45; Stop 07/22/20 at 13:48; Status DC Potassium Phos/ Sodium Phos (Phos-Nak) 1 pkt Q12HR PO Last administered on 07/23/20at 10:18; Start 07/22/20 at 17:00; Stop 07/23/20 at 09:01; Status DC Furosemide (Lasix) 20 mg 1X ONCE IVP Last administered on 07/23/20 08:15; Start 07/23/20 at 07:00; Stop 07/23/20 at 07:01; Status DC Acetaminophen/ Hydrocodone Bitart (Lortab 7.5/325) 1 tab PRN Q6HRS PRN PO SEVERE PAIN Last administered on 07/23/20at 16:14; Start 07/23/20 at 10:15 Acetaminophen/ Hydrocodone Bitart (Lortab 10/325) 1 tab PRN Q6HRS PRN PO SEVERE PAIN 2ND CHOICE Last administered on 07/24/20at 08:38; Start 07/23/20 at 10:15 Acetaminophen/ Hydrocodone Bitart (Lortab 5/325) 1 tab PRN Q4HRS PRN PO MODERATE PAIN Last administered on 07/25/20at 01:40; Start 07/23/20 at 10:15 Digoxin (Lanoxin) 250 mcg 1X ONCE IV Last administered on 07/23/20at 13:13; Start 07/23/20 at 12:45; Stop 07/23/20 at 12:46; Status DC Furosemide (Lasix) 40 mg 1X ONCE IVP Last administered on 07/24/20at 14:26; Start 07/24/20 at 14:15; Stop 07/24/20 at 14:16; Status DC Potassium Chloride (Klor-Con) 40 meq 1X ONCE PO Last administered on 07/24/20at 14:27; Start 07/24/20 at 14:15; Stop 07/24/20 at 14:16; Status DC Potassium Bicarbonate (Potassium Effervescent Tablet) 40 meq 1X ONCE FT ; Start 07/24/20 at 15:30; Stop 07/24/20 at 15:31; Status UNV Potassium Bicarbonate (Potassium Effervescent Tablet) 40 meq 1X ONCE FT ; Start 07/24/20 at 15:30; Stop 07/24/20 at 15:31; Status UNV Magnesium Sulfate 50 ml @ 25 mls/hr Q24H IV ; Start 07/24/20 at 15:30; Stop 07/26/20 at 17:29; Status UNV Potassium Phos/ Sodium Phos (Phos-Nak) 1 pkt BID PO ; Start 07/24/20 at 21:00; Stop 07/25/20 at 09:01; Status UNV Potassium Bicarbonate (Potassium Effervescent Tablet) 40 meq Q4H PO ; Start 07/24/20 at 15:30; Stop 07/24/20 at 19:31; Status UNV Info (Non-Icu Electrolyte Protocol) 1 ea CONT PRN PRN MC SEE COMMENTS; Start 07/24/20 at 15:45 Active Scripts Active Reported Amiodarone Hcl 100 Mg Tablet 1 Tab PO DAILY 30 Days Micardis (Telmisartan) 40 Mg Tablet 40 Mg PO DAILY Valtrex (Valacyclovir Hcl) 1,000 Mg Tablet 1 Tab PO DAILY Metoprolol Succinate ( Xl ) (Metoprolol Succinate) 100 Mg Tab.er.24h 50 Mg PO DAILY Xarelto (Rivaroxaban) 20 Mg Tablet 1 Tab PO DAILY 30 Days with food Vitals/I & O Vital Sign - Last 24 Hours 07/24/20 07/24/20 07/24/20 07/24/20 08:38 09:08 09:48 11:00 Temp 97.5 97.5 Pulse 91 86 Resp 18 B/P (MAP) 128/58 99/46 (63) Pulse Ox 99 95 O2 Delivery Room Air Room Air Room Air 07/24/20 07/24/20 07/24/20 07/24/20 13:03 13:34 15:00 19:02 Temp 98.1 98.3 98.1 98.3 Pulse 93 92 Resp 18 19 B/P (MAP) 127/57 (80) 168/53 (91) Pulse Ox 95 95 95 97 O2 Delivery Room Air Room Air Room Air Room Air 07/24/20 07/24/20 07/24/20 07/24/20 19:45 20:58 21:28 22:41 Temp 98.1 98.1 Pulse 91 Resp 18 19 B/P (MAP) 155/75 (101) Pulse Ox 97 98 O2 Delivery Room Air Room Air Room Air Room Air 07/25/20 07/25/20 07/25/20 01:40 02:03 02:10 Temp 98.0 98.0 Pulse 85 Resp 18 18 B/P (MAP) 116/52 (73) Pulse Ox 98 98 98 O2 Delivery Room Air Room Air Room Air O2 Flow Rate 2.0 Intake and Output 07/24/20 07/24/20 07/25/20 15:00 23:00 07:00 Intake Total 180 ml 650 ml Output Total 650 ml Balance 180 ml -650 ml 650 ml Justicifation of Admission Dx: Justifications for Admission: Justification of Admission Dx: Yes CHF: Cardiac Arrhythmias (AFIB with RVR) FARA PEDRO MD Jul 25, 2020 08:29
[2020-07-25] MEDS: AMIODARONE HCL 200 MG TABLET. PO SCH (09:26)
[2020-07-25] MEDS: LACTOBACILLUS RHAMNOSUS GG 1 CAPSULE. PO SCH ×2 (09:26→21:31)
[2020-07-25] MEDS: HYDROcodone/APAP 7.5/325MG 1 TAB TABLET PO PRN (09:27)
[2020-07-25] MEDS: METOPROLOL SUCC 24HR ER 50 MG TAB.ER.24H. PO SCH (09:27)
--- NOTE | 2020-07-25 10:36 | PDOC ---
IVETTE HERNANDEZ [employer] 07/25/20 1036: CARDIO Progress Notes Date and Time Date of Service 07/25/20 Time of Evaluation 1030 Subjective Subjective: No Chest Pain, No Palpitations, Other (c/o RLE edema ) Vitals Vitals Vital Signs Date Time Temp Pulse Resp B/P (MAP) Pulse Ox O2 Delivery O2 Flow Rate FiO2 07/25/20 09:57 96 Room Air 07/25/20 09:27 95 117/48 07/25/20 07:00 97.4 14 2.0 97.4 Weight Weight [ ] Input and Output Intake and Output Intake and Output 07/25/20 07:00 Intake Total 830 ml Output Total 650 ml Balance 180 ml Intake Oral 280 ml IV Total 550 ml Output Urine Total 400 ml Urine/Stool Mix 250 ml # Voids 1 # Bowel Movements 1 Laboratory Labs Laboratory Tests Test 07/25/20 03:40 White Blood Count 6.3 x10^3/uL (4.0-11.0) Red Blood Count 3.27 x10^6/uL (3.50-5.40) Hemoglobin 10.1 g/dL (12.0-15.5) Hematocrit 31.4 % (36.0-47.0) Mean Corpuscular Volume 96 fL (79-100) Mean Corpuscular Hemoglobin 31 pg (25-35) Mean Corpuscular Hemoglobin Concent 32 g/dL (31-37) Red Cell Distribution Width 14.2 % (11.5-14.5) Platelet Count 285 x10^3/uL (140-400) Neutrophils (%) (Auto) 70 % (31-73) Lymphocytes (%) (Auto) 16 % (24-48) Monocytes (%) (Auto) 8 % (0-9) Eosinophils (%) (Auto) 6 % (0-3) Basophils (%) (Auto) 1 % (0-3) Neutrophils # (Auto) 4.4 x10^3/uL (1.8-7.7) Lymphocytes # (Auto) 1.0 x10^3/uL (1.0-4.8) Monocytes # (Auto) 0.5 x10^3/uL (0.0-1.1) Eosinophils # (Auto) 0.3 x10^3/uL (0.0-0.7) Basophils # (Auto) 0.1 x10^3/uL (0.0-0.2) Sodium Level 143 mmol/L (136-145) Potassium Level 4.1 mmol/L (3.5-5.1) Chloride Level 107 mmol/L (98-107) Carbon Dioxide Level 29 mmol/L (21-32) Anion Gap 7 (6-14) Blood Urea Nitrogen 13 mg/dL (7-20) Creatinine 1.3 mg/dL (0.6-1.0) Estimated GFR (Cockcroft-Gault) 40.7 Glucose Level 95 mg/dL (70-99) Calcium Level 8.4 mg/dL (8.5-10.1) Microbiology Micro Microbiology 07/22/20 Urine Culture - Final, Complete 07/22/20 Antimicrobic Susceptibility - Final, Complete 07/22/20 Blood Culture - Preliminary, Resulted NO GROWTH AFTER 3 DAYS Physical Exam HEENT: Neck Supple W Full Motion Chest: Symmetric LUNGS: Other (diminished bases) Heart: irregularly irregular Abdomen: Soft N/T Extremities: Other (1-2+ LLE edema with mild erythema. ) Neurology: alert, oriented, follow commands Assessment Assessment 1. Acute on chronic probable diastolic CHF; improved with diuresis 2. Recurrent AFIB; Follows with [facility], Dr. Al. Underwent CV 07/08/20; records obtained, but unclear if she had successful conversion to SR. Rate controlled 3. Hypertension; low end 4. H/o NICM; LVEF perviously 25-30% 2015. Cath 05/2015 with normal coronaries. Echo 2018 shows LVEF recovery. NATASHA 07/08/20 with EV 50-55%. 5. CKD 6. Leukocytosis, fevers, UTI 7. RLE cellulitis. edema. US negative for DVT Recommendations Lasix PRN Metoprolol for rate control Amiodarone for rhythm control Xarelto for stroke prophylaxis Possible AF ablation on outpatient basis. Will defer to primary heavy equipment engine mechanic Ongoing treatment of UTI, cellulitis as per IM F/u with primary heavy equipment engine mechanic, Dr. Al upon discharge Justicifation of Admission Dx: Justifications for Admission: Justification of Admission Dx: Yes CHF: Cardiac Arrhythmias (AFIB with RVR) MARTA MENDOZA MD 07/25/202101: CARDIO Progress Notes Assessment Assessment Patient seen and examined. Agree with BUSINESS LAWYER's assessment and plan. Acute on chronic diastolic heart failure better compensated with diuresis Recurrent AF rate better controlled Continue amiodarone and xarelto Possible AF ablation therapy as an outpatient Follow-up with primary heavy equipment engine mechanic IVETTE HERNANDEZ APRN Jul 25, 2020 10:36 MARTA MENDOZA MD Jul 25, 2020 21:02
--- NOTE | 2020-07-25 11:59 | NUR ---
IP: Pt is mrsa screen +. discussed with Zackery pt's nurse, to begin the Nozin/CHG protocol. No isolation once this is started.
[2020-07-25] MEDS: LINEZOLID 600 MG TABLET PO SCH ×2 (12:48→21:32)
--- NOTE | 2020-07-25 14:08 | NUR ---
SS following up with discharge planning. SS reviewed pt chart and discussed with pt RN. Pt is currently on room air. Cardiology and ID consulted. Pt on IV Cefazolin and PO Zyvox. Discharge plan is to home when medically ready. SS will continue to follow for discharge planning.
[2020-07-25] MEDS: RIVAROXABAN 10 MG TABLET. PO SCH (18:47)
--- NOTE | 2020-07-25 20:50 | PDOC ---
Infectious Disease Note Vital Signs: Vital Signs Vital Signs Date Time Temp Pulse Resp B/P (MAP) Pulse Ox O2 Delivery O2 Flow Rate FiO2 07/25/20 19:43 98.1 90 18 133/50 (77) Room Air 98.1 07/25/20 15:00 100 07/25/20 07:00 2.0 Medications: Inpatient Meds: Medications reviewed. Labs: Lab Laboratory Tests Test 07/25/20 03:40 White Blood Count 6.3 x10^3/uL (4.0-11.0) Red Blood Count 3.27 x10^6/uL (3.50-5.40) Hemoglobin 10.1 g/dL (12.0-15.5) Hematocrit 31.4 % (36.0-47.0) Mean Corpuscular Volume 96 fL (79-100) Mean Corpuscular Hemoglobin 31 pg (25-35) Mean Corpuscular Hemoglobin Concent 32 g/dL (31-37) Red Cell Distribution Width 14.2 % (11.5-14.5) Platelet Count 285 x10^3/uL (140-400) Neutrophils (%) (Auto) 70 % (31-73) Lymphocytes (%) (Auto) 16 % (24-48) Monocytes (%) (Auto) 8 % (0-9) Eosinophils (%) (Auto) 6 % (0-3) Basophils (%) (Auto) 1 % (0-3) Neutrophils # (Auto) 4.4 x10^3/uL (1.8-7.7) Lymphocytes # (Auto) 1.0 x10^3/uL (1.0-4.8) Monocytes # (Auto) 0.5 x10^3/uL (0.0-1.1) Eosinophils # (Auto) 0.3 x10^3/uL (0.0-0.7) Basophils # (Auto) 0.1 x10^3/uL (0.0-0.2) Sodium Level 143 mmol/L (136-145) Potassium Level 4.1 mmol/L (3.5-5.1) Chloride Level 107 mmol/L (98-107) Carbon Dioxide Level 29 mmol/L (21-32) Anion Gap 7 (6-14) Blood Urea Nitrogen 13 mg/dL (7-20) Creatinine 1.3 mg/dL (0.6-1.0) Estimated GFR (Cockcroft-Gault) 40.7 Glucose Level 95 mg/dL (70-99) Calcium Level 8.4 mg/dL (8.5-10.1) Phosphorus Level 3.7 mg/dL (2.6-4.7) C-Reactive Protein, Quantitative 153.4 mg/L (0-3.3) Procalcitonin 1.65 ng/mL (0.00-0.10) Objective: Assessment: Pt seen this am ID Consult dictated IMP: LLE cellulitis A fib with RVR Fever Plan: Plan of Care cont antibiotics ,see orders elevate leg d/w RN Thank you JOELLEN RAMOS MD Jul 25, 2020 20:50
--- NOTE | 2020-07-25 21:57 | CONS ---
DATE OF CONSULTATION: 07/25/2020 REFERRING PHYSICIAN: Dr. Ritchie. REASON FOR CONSULTATION: Possible sepsis. HISTORY OF PRESENT ILLNESS: A 69-year-old female with history of atrial fibrillation status post cardioversion at outside hospital recently on amiodarone, presented with complaints of rapid heart rate for a couple of days associated with shortness of breath and left arm discomfort. The patient also had redness affecting the right lower extremity. She denies any symptoms. She had fever. She had leukocytosis on admission at 20,000. UA showed pyuria. BNP was 271-1. Urine culture grew E. coli 60,000 colonies. The patient is on vancomycin and Zosyn. ID consultation has been requested for antibiotic management. PAST MEDICAL HISTORY: AFib, chronic anticoagulation, viral infection for which she is on Valtrex hypertension, arrhythmias. ALLERGIES: None. SOCIAL HISTORY: She does not smoke, alcohol, no drugs. Works at [employer]. FAMILY HISTORY: As per HPI. MEDICATIONS: IV vancomycin, Zosyn, amiodarone. Other medications reviewed in medication list. REVIEW OF SYSTEMS: Negative except for above in HPI. The patient still has swelling and redness and pain in the right lower extremity, improving, though has worsened over the last two days. REVIEW OF SYSTEMS: Negative except for above in HPI. PHYSICAL EXAMINATION: VITAL SIGNS: Temperature 97.4, pulse 95, respiratory rate 14, blood pressure 117/48, oxygen saturation 96% on room air. GENERAL: Alert and oriented x3 female lying in bed comfortably, in no acute distress. HEENT: Normocephalic, atraumatic. Anicteric. NECK: Supple. No JVD. LUNGS: Clear bilaterally. No wheezing. HEART: Irregularly irregular. ABDOMEN: Soft, nontender, nondistended, obese. EXTREMITIES: Right lower extremity swelling, erythema going up the thigh. No open wounds seen. NEUROLOGIC: Alert and oriented x3. Grossly nonfocal. PSYCHIATRIC: Cooperative, with appropriate mood, and affect. PIV looks clean. LABORATORY DATA: WBC 6.3, was 20.6 on admission, hemoglobin 10.1, hematocrit 31.4, platelets 285. Sodium 143, potassium 4.1, chloride 107, bicarbonate 29, BUN 13, creatinine 1.3, was 1.5. Uric acid 5.3. BNP high. UA shows moderate leukocyte esterase, 20-40 WBCs. Nasal MRSA screen positive. Vancomycin trough 17. C. difficile negative. DIAGNOSTICS: Lower extremity ultrasound negative for DVT. Femur x-ray tibia, fibula x-ray, knee x-ray. Chest x-ray noted. IMPRESSION: 1. Fever on admission, resolved. 2. Leukocytosis, improved. 3. Left lower extremity cellulitis. 4. E. coli urinary tract infection.Asymptomatic, could be colonization 5. Atrial fibrillation with rapid ventricular response. 6. Acute kidney injury. 7 Congestive heart failure RECOMMENDATIONS: 1. Discontinue IV vancomycin due to acute kidney injury. 2. Discontinue Zosyn. 3. Start cefazolin and Zyvox. 4. Elevate left lower extremity. 5. Follow up labs and cultures. 6. Continue supportive care. Thank you for allowing me to participate in this patient's care. If you have any questions, do not hesitate to contact me. MIKAL DR: Gildardo TID: [id number] [facility]
[2020-07-26 03:59] VITALS: BP 101/52
[2020-07-26 07:00] VITALS: BP 131/65
[2020-07-26 08:15] LABS: BASO # 0.1 x10^3/uL (0.0-0.2); BASO % 1 % (0-3); EOS # 0.3 x10^3/uL (0.0-0.7); EOS % 4 % (0-3); HEMATOCRIT 31.2 % (36.0-47.0); HEMOGLOBIN 10.3 g/dL (12.0-15.5); LYMPH % 16 % (24-48); MEAN CORPUSCULAR HEMOGLOBIN 31 pg (25-35); MEAN CORPUSCULAR HGB CONC 33 g/dL (31-37); MEAN CORPUSCULAR VOLUME 95 fL (79-100); MONO # 0.5 x10^3/uL (0.0-1.1); MONO % 8 % (0-9); NEUT # 4.7 x10^3/uL (1.8-7.7); NEUT % 72 % (31-73); PLATELET COUNT 332 x10^3/uL (140-400); RED BLOOD COUNT 3.27 x10^6/uL (3.50-5.40); RED CELL DISTRIBUTION WIDTH 14.2 % (11.5-14.5); WHITE BLOOD COUNT 6.5 x10^3/uL (4.0-11.0)
--- NOTE | 2020-07-26 08:19 | PDOC ---
Infectious Disease Note Subjective: Subjective Patient feels better Still has right lower extremity swelling and redness ,improved slightly Denies fever, nausea, vomiting, shortness of breath, diarrhea, abdominal pain, Otherwise as above Vital Signs: Vital Signs Vital Signs Date Time Temp Pulse Resp B/P (MAP) Pulse Ox O2 Delivery O2 Flow Rate FiO2 07/26/20 07:00 98.0 80 20 131/65 (87) 97 Room Air 98.0 07/25/20 07:00 2.0 Physical Exam: PHYSICAL EXAM GENERAL: Alert and oriented x3 female lying in bed comfortably, in no acute distress. HEENT: Normocephalic, atraumatic. Anicteric. NECK: Supple. No JVD. LUNGS: Clear bilaterally. No wheezing. HEART: Irregularly irregular. ABDOMEN: Soft, nontender, nondistended, obese. EXTREMITIES: Right lower extremity swelling, erythema going up the thigh. No open wounds seen. NEUROLOGIC: Alert and oriented x3. Grossly nonfocal. PSYCHIATRIC: Cooperative, with appropriate mood, and affect. PIV looks clean. Medications: Inpatient Meds: Medications reviewed. Objective: Assessment: 1. Fever on admission, resolved. 2. Leukocytosis, improved. 3. Left lower extremity cellulitis. 4. E. coli urinary tract infection.Asymptomatic, could be colonization 5. Atrial fibrillation with rapid ventricular response. 6. Acute kidney injury. 7 Congestive heart failure Plan: Plan of Care Continue cefazolin and Zyvox. Dose micafungin Elevate left lower extremity. Follow up labs and cultures. Continue supportive care. JOELLEN RAMOS MD Jul 26, 2020 08:19
[2020-07-26 08:23] LABS: CALCIUM 8.4 mg/dL (8.5-10.1); CREATININE 1.2 mg/dL (0.6-1.0); GFR 44.7; POTASSIUM 3.8 mmol/L (3.5-5.1)
--- NOTE | 2020-07-26 08:30 | PDOC ---
PROGRESS NOTES Date of Service: DATE: 07/26/20 TIME: 08:30 Chief Complaint Chief Complaint IMPRESSION Sepsis and atrial fibrillation with rapid ventricular response, cellulitis and leukocytosis and urinary tract infection. ELECTROLYTE imbalance H/o NICM; LVEF perviously 25-30% 2015. Cath 05/2015 with normal coronaries. Echo 2018 shows LVEF recovery. NATASHA 07/08/20 with EV 50-55%. HAYDER CR BETTER 1.2 [employer] admitted to the cvc IV fluids, IV antibiotics. Continue cefazolin and Zyvox. iv d/c iv vanc Dose micafungin Consult Cardiology. Consult Infectious Disease. Home meds. Deep venous thrombosis prophylaxis. Full code. Long-term prognosis guarded. replace lytes 60,000 CFU/ML GRAM NEGATIVE RODS on 07/23/20 at 0736 FINAL ID= [ESCHERICHIA COLI] BLOOD CULTURE Preliminary NO GROWTH AFTER 4 DAYS History of Present Illness History of Present Illness The patient is a pleasant 69-year-old female who has a previous history of atrial fibrillation 5 years ago, now she presents with another rapid heart rate, has been occurring for a couple of days. She thought it would go away. She has some associated shortness of breath and some left arm discomfort. She a pparently was converted recently as an outpatient from her recurrent AFib. She has also increased her metoprolol. She is already on Xarelto. I discussed the case with ER physician. The patient has been admitted to the ICU. She has AFib with RVR and sepsis as well with cellulitis on the right UPPER AND lower extremity. 07/26 Afebrile, no acute events overnight. She complains of pain in her right lower extremity; will discontinue IV pain medications and add orals. Monitor kidney function. Will also continue metoprolol and amiodarone for rate control. MRSA PCR pending, D/C vancomycin and CONT Zosyn for now. Appreciate ID input on the management of this patient. No Doppler evidence of lower extremity deep venous thrombosis. CR 1.2 d/w rn BLOOD CULTURE Preliminary NO GROWTH AFTER 4 DAYS 07/25/2020 Afebrile, no acute events overnight. She complains of pain in her right lower extremity; will discontinue IV pain medications and add orals. Monitor kidney function. Will also continue metoprolol and amiodarone for rate control. MRSA PCR pending, continue vancomycin and Zosyn for now. Appreciate ID input on the management of this patient. No Doppler evidence of lower extremity deep venous thrombosis. CR 1.3 07/24/2020 Afebrile, no acute events overnight. She complains of pain in her right lower extremity; will discontinue IV pain medications and add orals. 90 mL net fluid output overnight; continue diuresis with Lasix IV x1. Monitor kidney function. Will also continue metoprolol and amiodarone for rate control. MRSA PCR pending, continue vancomycin and Zosyn for now. Appreciate ID input on the man agement of this patient. No Doppler evidence of lower extremity deep venous thrombosis. 07/23/2020 Afebrile, no acute events overnight. She complains of pain in her right lower extremity; will discontinue IV pain medications and add orals. 90 mL net fluid output overnight; continue diuresis with Lasix IV x1. Monitor kidney function. Will also continue metoprolol and amiodarone for rate control. MRSA PCR pending, continue vancomycin and Zosyn for now. Appreciate ID input on the management of this patient. Vitals Vitals Vital Signs Date Time Temp Pulse Resp B/P (MAP) Pulse Ox O2 Delivery O2 Flow Rate FiO2 07/26/20 07:00 98.0 80 20 131/65 (87) 97 Room Air 98.0 07/25/20 07:00 2.0 Physical Exam General: Alert, Oriented X3, Cooperative, No acute distress Heart: Regular rate, Normal S1, No murmurs, Other (AFIB, rate mostly controlled ) Lungs: Clear Abdomen: Normal bowel sounds, Soft, No tenderness, Other (obese ) Extremities: No cyanosis, Other (1+ bilalteral LE edema right upper leg cellulitis) Skin: No significant lesion, Other (Erythema to RLE ) Labs LABS Laboratory Tests Test 07/26/20 07:45 White Blood Count 6.5 x10^3/uL (4.0-11.0) Red Blood Count 3.27 x10^6/uL (3.50-5.40) Hemoglobin 10.3 g/dL (12.0-15.5) Hematocrit 31.2 % (36.0-47.0) Mean Corpuscular Volume 95 fL (79-100) Mean Corpuscular Hemoglobin 31 pg (25-35) Mean Corpuscular Hemoglobin Concent 33 g/dL (31-37) Red Cell Distribution Width 14.2 % (11.5-14.5) Platelet Count 332 x10^3/uL (140-400) Neutrophils (%) (Auto) 72 % (31-73) Lymphocytes (%) (Auto) 16 % (24-48) Monocytes (%) (Auto) 8 % (0-9) Eosinophils (%) (Auto) 4 % (0-3) Basophils (%) (Auto) 1 % (0-3) Neutrophils # (Auto) 4.7 x10^3/uL (1.8-7.7) Lymphocytes # (Auto) 1.0 x10^3/uL (1.0-4.8) Monocytes # (Auto) 0.5 x10^3/uL (0.0-1.1) Eosinophils # (Auto) 0.3 x10^3/uL (0.0-0.7) Basophils # (Auto) 0.1 x10^3/uL (0.0-0.2) Sodium Level 143 mmol/L (136-145) Potassium Level 3.8 mmol/L (3.5-5.1) Chloride Level 107 mmol/L (98-107) Carbon Dioxide Level 29 mmol/L (21-32) Anion Gap 7 (6-14) Blood Urea Nitrogen 10 mg/dL (7-20) Creatinine 1.2 mg/dL (0.6-1.0) Estimated GFR (Cockcroft-Gault) 44.7 Glucose Level 96 mg/dL (70-99) Calcium Level 8.4 mg/dL (8.5-10.1) Magnesium Level 1.9 mg/dL (1.8-2.4) Assessment and Plan Assessmemt and Plan Problems Medical Problems: (1) Atrial fibrillation with RVR Status: Acute (2) Cellulitis of right lower extremity Status: Acute (3) Sepsis Status: Acute (4) UTI (urinary tract infection) Status: Acute Comment Review of Relevant I have reviewed the following items maria c (where applicable) has been applied. Labs Laboratory Tests Test 07/25/20 03:40 07/26/20 07:45 White Blood Count 6.3 x10^3/uL (4.0-11.0) 6.5 x10^3/uL (4.0-11.0) Red Blood Count 3.27 x10^6/uL (3.50-5.40) 3.27 x10^6/uL (3.50-5.40) Hemoglobin 10.1 g/dL (12.0-15.5) 10.3 g/dL (12.0-15.5) Hematocrit 31.4 % (36.0-47.0) 31.2 % (36.0-47.0) Mean Corpuscular Volume 96 fL (79-100) 95 fL (79-100) Mean Corpuscular Hemoglobin 31 pg (25-35) 31 pg (25-35) Mean Corpuscular Hemoglobin Concent 32 g/dL (31-37) 33 g/dL (31-37) Red Cell Distribution Width 14.2 % (11.5-14.5) 14.2 % (11.5-14.5) Platelet Count 285 x10^3/uL (140-400) 332 x10^3/uL (140-400) Neutrophils (%) (Auto) 70 % (31-73) 72 % (31-73) Lymphocytes (%) (Auto) 16 % (24-48) 16 % (24-48) Monocytes (%) (Auto) 8 % (0-9) 8 % (0-9) Eosinophils (%) (Auto) 6 % (0-3) 4 % (0-3) Basophils (%) (Auto) 1 % (0-3) 1 % (0-3) Neutrophils # (Auto) 4.4 x10^3/uL (1.8-7.7) 4.7 x10^3/uL (1.8-7.7) Lymphocytes # (Auto) 1.0 x10^3/uL (1.0-4.8) 1.0 x10^3/uL (1.0-4.8) Monocytes # (Auto) 0.5 x10^3/uL (0.0-1.1) 0.5 x10^3/uL (0.0-1.1) Eosinophils # (Auto) 0.3 x10^3/uL (0.0-0.7) 0.3 x10^3/uL (0.0-0.7) Basophils # (Auto) 0.1 x10^3/uL (0.0-0.2) 0.1 x10^3/uL (0.0-0.2) Sodium Level 143 mmol/L (136-145) 143 mmol/L (136-145) Potassium Level 4.1 mmol/L (3.5-5.1) 3.8 mmol/L (3.5-5.1) Chloride Level 107 mmol/L (98-107) 107 mmol/L (98-107) Carbon Dioxide Level 29 mmol/L (21-32) 29 mmol/L (21-32) Anion Gap 7 (6-14) 7 (6-14) Blood Urea Nitrogen 13 mg/dL (7-20) 10 mg/dL (7-20) Creatinine 1.3 mg/dL (0.6-1.0) 1.2 mg/dL (0.6-1.0) Estimated GFR (Cockcroft-Gault) 40.7 44.7 Glucose Level 95 mg/dL (70-99) 96 mg/dL (70-99) Calcium Level 8.4 mg/dL (8.5-10.1) 8.4 mg/dL (8.5-10.1) Phosphorus Level 3.7 mg/dL (2.6-4.7) C-Reactive Protein, Quantitative 153.4 mg/L (0-3.3) Procalcitonin 1.65 ng/mL (0.00-0.10) Magnesium Level 1.9 mg/dL (1.8-2.4) Laboratory Tests Test 07/26/20 07:45 White Blood Count 6.5 x10^3/uL (4.0-11.0) Red Blood Count 3.27 x10^6/uL (3.50-5.40) Hemoglobin 10.3 g/dL (12.0-15.5) Hematocrit 31.2 % (36.0-47.0) Mean Corpuscular Volume 95 fL (79-100) Mean Corpuscular Hemoglobin 31 pg (25-35) Mean Corpuscular Hemoglobin Concent 33 g/dL (31-37) Red Cell Distribution Width 14.2 % (11.5-14.5) Platelet Count 332 x10^3/uL (140-400) Neutrophils (%) (Auto) 72 % (31-73) Lymphocytes (%) (Auto) 16 % (24-48) Monocytes (%) (Auto) 8 % (0-9) Eosinophils (%) (Auto) 4 % (0-3) Basophils (%) (Auto) 1 % (0-3) Neutrophils # (Auto) 4.7 x10^3/uL (1.8-7.7) Lymphocytes # (Auto) 1.0 x10^3/uL (1.0-4.8) Monocytes # (Auto) 0.5 x10^3/uL (0.0-1.1) Eosinophils # (Auto) 0.3 x10^3/uL (0.0-0.7) Basophils # (Auto) 0.1 x10^3/uL (0.0-0.2) Sodium Level 143 mmol/L (136-145) Potassium Level 3.8 mmol/L (3.5-5.1) Chloride Level 107 mmol/L (98-107) Carbon Dioxide Level 29 mmol/L (21-32) Anion Gap 7 (6-14) Blood Urea Nitrogen 10 mg/dL (7-20) Creatinine 1.2 mg/dL (0.6-1.0) Estimated GFR (Cockcroft-Gault) 44.7 Glucose Level 96 mg/dL (70-99) Calcium Level 8.4 mg/dL (8.5-10.1) Magnesium Level 1.9 mg/dL (1.8-2.4) Microbiology 07/22/20 Urine Culture - Final, Complete 07/22/20 Antimicrobic Susceptibility - Final, Complete 07/22/20 Blood Culture - Preliminary, Resulted NO GROWTH AFTER 4 DAYS Medications Current Medications Sodium Chloride 1,000 ml @ 1,000 mls/hr Q1H IV Last administered on 07/21/20at 22:58; Start 07/21/20 at 22:30; Stop 07/21/20 at 23:29; Status DC Diltiazem HCl (Cardizem Iv Push) 10 mg 1X ONCE IVP ; Start 07/21/20 at 22:00; Stop 07/21/20 at 21:55; Status DC Sodium Chloride 1,000 ml @ 1,000 mls/hr 1X ONCE IV Last administered on 07/21/20at 22:58; Start 07/21/20 at 22:30; Stop 07/21/20 at 23:29; Status DC Diltiazem HCl (Cardizem Iv Push) 20 mg 1X ONCE IVP Last administered on 07/21/20at 22:59; Start 07/21/20 at 22:30; Stop 07/21/20 at 22:31; Status DC Vancomycin HCl (Vanco Per Pharmacy) 1 each PRN DAILY PRN MC SEE COMMENTS Last administered on 07/24/20at 07:39; Start 07/21/20 at 22:15; Stop 07/25/20 at 11:14; Status DC Vancomycin HCl 2 gm/Sodium Chloride 500 ml @ 250 mls/hr 1X ONCE IV Last administered on 07/21/20at 23:31; Start 07/21/20 at 23:30; Stop 07/22/20 at 01:29; Status DC Acetaminophen (Tylenol) 650 mg 1X ONCE PO Last administered on 07/22/20at 01:16; Start 07/22/20 at 01:00; Stop 07/22/20 at 01:01; Status DC Vancomycin HCl 2 gm/Sodium Chloride 500 ml @ 250 mls/hr Q24H IV Last adm inistered on 07/24/20at 23:23; Start 07/22/20 at 23:00; Stop 07/25/20 at 11:13; Status DC Vancomycin HCl (Vancomycin Trough Level) 1 each 1X ONCE MC Last administered on 07/23/20at 22:30; Start 07/23/20 at 22:30; Stop 07/23/20 at 22:31; Status DC Ceftriaxone Sodium (Rocephin) 1 gm 1X ONCE IVP Last administered on 07/22/20at 04:22; Start 07/22/20 at 04:00; Stop 07/22/20 at 04:01; Status DC Sodium Chloride 1,000 ml @ 125 mls/hr 1X ONCE IV Last administered on 07/22/20at 05:23; Start 07/22/20 at 05:30; Stop 07/22/20 at 13:29; Status DC Piperacillin Sod/ Tazobactam Sod (Zosyn Per Pharmacy) 1 each PRN DAILY PRN MC SEE COMMENTS; Start 07/22/20 at 05:15; Stop 07/25/20 at 11:15; Status DC Piperacillin Sod/ Tazobactam Sod 3.375 gm/Sodium Chloride 50 ml @ 100 mls/hr Q6HRS IV Last administered on 07/25/20at 06:23; Start 07/22/20 at 06:00; Stop 07/25/20 at 11:14; Status DC Lactobacillus Rhamnosus (Culturelle) 1 cap BID PO Last administered on 07/25/20at 21:31; Start 07/22/20 at 09:00 Fentanyl Citrate (Fentanyl 2ml Vial) 50 mcg PRN Q2HR PRN IVP PAIN Last administered on 07/23/20 08:15; Start 07/22/20 at 10:30; Stop 07/23/20 at 10:06; Status DC Metoprolol Succinate (Toprol Xl) 50 mg DAILY PO Last administered on 07/25/20 09:27; Start 07/22/20 at 11:00 Rivaroxaban (Xarelto) 20 mg DAILYWSUP PO Last administered on 07/25/20 18:47; Start 07/22/20 at 17:00 Amiodarone HCl (Cordarone) 200 mg DAILY PO Last administered on 07/25/20 09:26; Start 07/22/20 at 11:00 Digoxin (Lanoxin) 250 mcg 1X ONCE IV Last administered on 07/22/20 11:22; Start 07/22/20 at 10:45; Stop 07/22/20 at 10:46; Status DC Acetaminophen (Tylenol) 650 mg PRN Q6HRS PRN PO MILD PAIN / TEMP > 100.3'F Last administered on 07/22/20at 12:49; Start 07/22/20 at 11:30 Furosemide (Lasix) 40 mg 1X ONCE IVP Last administered on 07/22/20 15:08; Start 07/22/20 at 13:45; Stop 07/22/20 at 13:48; Status DC Potassium Phos/ Sodium Phos (Phos-Nak) 1 pkt Q12HR PO Last administered on 07/23/20at 10:18; Start 07/22/20 at 17:00; Stop 07/23/20 at 09:01; Status DC Furosemide (Lasix) 20 mg 1X ONCE IVP Last administered on 07/23/20at 08:15; Start 07/23/20 at 07:00; Stop 07/23/20 at 07:01; Status DC Acetaminophen/ Hydrocodone Bitart (Lortab 7.5/325) 1 tab PRN Q6HRS PRN PO SEVERE PAIN Last administered on 07/25/20 09:27; Start 07/23/20 at 10:15 Acetaminophen/ Hydrocodone Bitart (Lortab 10/325) 1 tab PRN Q6HRS PRN PO SEVERE PAIN 2ND CHOICE Last administered on 07/24/20at 08:38; Start 07/23/20 at 10:15 Acetaminophen/ Hydrocodone Bitart (Lortab 5/325) 1 tab PRN Q4HRS PRN PO MODERATE PAIN Last administered on 07/25/20at 21:31; Start 07/23/20 at 10:15 Digoxin (Lanoxin) 250 mcg 1X ONCE IV Last administered on 07/23/20at 13:13; Start 07/23/20 at 12:45; Stop 07/23/20 at 12:46; Status DC Furosemide (Lasix) 40 mg 1X ONCE IVP Last administered on 07/24/20at 14:26; Start 07/24/20 at 14:15; Stop 07/24/20 at 14:16; Status DC Potassium Chloride (Klor-Con) 40 meq 1X ONCE PO Last administered on 07/24/20at 14:27; Start 07/24/20 at 14:15; Stop 07/24/20 at 14:16; Status DC Potassium Bicarbonate (Potassium Effervescent Tablet) 40 meq 1X ONCE FT ; Start 07/24/20 at 15:30; Stop 07/24/20 at 15:31; Status UNV Potassium Bicarbonate (Potassium Effervescent Tablet) 40 meq 1X ONCE FT ; Start 07/24/20 at 15:30; Stop 07/24/20 at 15:31; Status UNV Magnesium Sulfate 50 ml @ 25 mls/hr Q24H IV ; Start 07/24/20 at 15:30; Stop 07/26/20 at 17:29; Status UNV Potassium Phos/ Sodium Phos (Phos-Nak) 1 pkt BID PO ; Start 07/24/20 at 21:00; Stop 07/25/20 at 09:01; Status UNV Potassium Bicarbonate (Potassium Effervescent Tablet) 40 meq Q4H PO ; Start 07/24/20 at 15:30; Stop 07/24/20 at 19:31; Status UNV Info (Non-Icu Electrolyte Protocol) 1 ea CONT PRN PRN MC SEE COMMENTS; Start 07/24/20 at 15:45 Cefazolin Sodium/ Dextrose 50 ml @ 100 mls/hr Q8HRS IV Last administered on 07/26/20at 05:50; Start 07/25/20 at 14:00 Linezolid (Zyvox) 600 mg BID PO Last administered on 07/25/20at 21:32; Start 07/25/20 at 12:00 Active Scripts Active Reported Amiodarone Hcl 100 Mg Tablet 1 Tab PO DAILY 30 Days Micardis (Telmisartan) 40 Mg Tablet 40 Mg PO DAILY Valtrex (Valacyclovir Hcl) 1,000 Mg Tablet 1 Tab PO DAILY Metoprolol Succinate ( Xl ) (Metoprolol Succinate) 100 Mg Tab.er.24h 50 Mg PO DAILY Xarelto (Rivaroxaban) 20 Mg Tablet 1 Tab PO DAILY 30 Days with food Vitals/I & O Vital Sign - Last 24 Hours 07/25/20 07/25/20 07/25/20 07/25/20 09:26 09:27 09:27 09:57 Pulse 95 95 B/P (MAP) 117/48 117/48 Pulse Ox 95 96 O2 Delivery Room Air Room Air 07/25/20 07/25/20 07/25/20 07/25/20 11:00 15:00 19:43 20:00 Temp 97.8 98.2 98.1 97.8 98.2 98.1 Pulse 88 91 90 Resp 14 16 18 B/P (MAP) 119/57 (77) 122/71 (88) 133/50 (77) Pulse Ox 95 100 O2 Delivery Room Air Room Air Room Air Room Air 07/25/20 07/25/20 07/25/20 07/26/20 21:31 22:01 23:19 03:59 Temp 99.0 98.1 99.0 98.1 Pulse 81 75 Resp 20 16 18 B/P (MAP) 119/56 (77) 101/52 (68) Pulse Ox 100 O2 Delivery Room Air Room Air Room Air Room Air 07/26/20 07:00 Temp 98.0 98.0 Pulse 80 Resp 20 B/P (MAP) 131/65 (87) Pulse Ox 97 O2 Delivery Room Air Intake and Output 07/25/20 07/25/20 07/26/20 15:00 23:00 07:00 Intake Total 450 ml 550 ml 420 ml Output Total 350 ml 250 ml Balance 100 ml 300 ml 420 ml Justicifation of Admission Dx: Justifications for Admission: Justification of Admission Dx: Yes CHF: Cardiac Arrhythmias (AFIB with RVR) FARA PEDRO MD Jul 26, 2020 08:30
[2020-07-26] MEDS: LINEZOLID 600 MG TABLET PO SCH ×2 (08:59→20:40)
[2020-07-26] MEDS: METOPROLOL SUCC 24HR ER 50 MG TAB.ER.24H. PO SCH (08:59)
[2020-07-26] MEDS: HYDROcodone/APAP 5/325MG 1 TAB TABLET PO PRN ×2 (09:00→20:40)
[2020-07-26] MEDS: AMIODARONE HCL 200 MG TABLET. PO SCH (09:00)
[2020-07-26] MEDS: LACTOBACILLUS RHAMNOSUS GG 1 CAPSULE. PO SCH ×2 (09:00→20:40)
[2020-07-26] MEDS: MICAFUNGIN 100 MG in IV DEXTROSE 5% 100ML 100 ML IV SCH (10:59)
[2020-07-26 11:00] VITALS: BP 125/66
--- NOTE | 2020-07-26 12:53 | NUR ---
SS following up with discharge planning. SS reviewed pt chart and discussed with pt RN. Pt is currently on room air. Pt on IV Micafungin, IV Cefazolin, and PO Zyvox. Discharge plan is to home when medically ready. SS will continue to follow for discharge planning.
[2020-07-26 12:54] LABS: % EOS 2 % (0-5); % LYMPHS 22 % (24-48); % MONOS 4 % (0-10); % SEGS 72 % (35-66)
[2020-07-26 12:55] LABS: PLT ESTIMATE ADEQUATE (ADEQUATE)
[2020-07-26 15:00] VITALS: BP 134/76
[2020-07-26] MEDS: RIVAROXABAN 10 MG TABLET. PO SCH (16:43)
[2020-07-26 19:00] VITALS: BP 118/76
[2020-07-26 23:10] VITALS: BP 140/67
[2020-07-27 03:10] VITALS: BP 138/72
[2020-07-27 07:00] VITALS: BP 155/82
--- NOTE | 2020-07-27 07:49 | PDOC ---
Infectious Disease Note Subjective: Subjective Patient feels better Still has right lower extremity swelling and redness ,improved slightly Denies fever, nausea, vomiting, shortness of breath, abdominal pain, Had frequent loose bowel movement Otherwise as above Vital Signs: Vital Signs Vital Signs Date Time Temp Pulse Resp B/P (MAP) Pulse Ox O2 Delivery O2 Flow Rate FiO2 07/27/20 03:10 97.8 82 18 138/72 (94) 95 Room Air 97.8 07/26/20 19:31 2.0 Physical Exam: PHYSICAL EXAM GENERAL: Alert and oriented x3 female lying in bed comfortably, in no acute distress. HEENT: Normocephalic, atraumatic. Anicteric. NECK: Supple. No JVD. LUNGS: Clear bilaterally. No wheezing. HEART: Irregularly irregular. ABDOMEN: Soft, nontender, nondistended, obese. EXTREMITIES: Right lower extremity swelling, erythema going up the thigh. No open wounds seen. NEUROLOGIC: Alert and oriented x3. Grossly nonfocal. PSYCHIATRIC: Cooperative, with appropriate mood, and affect. PIV looks clean. Medications: Inpatient Meds: Medications reviewed. Objective: Assessment: 1. Fever on admission, resolved. 2. Leukocytosis, improved. 3. Left lower extremity cellulitis. 4. E. coli urinary tract infection.Asymptomatic, could be colonization 5. Atrial fibrillation with rapid ventricular response. 6. Acute kidney injury. 7 Congestive heart failure 8. Diarrhea Plan: Plan of Care Continue cefazolin and Zyvox. Dose micafungin C. difficile negative Elevate left lower extremity. Follow up labs and cultures. Continue supportive care. Hopefully will be able to discharge home tomorrow if continues to improve JOELLEN RAMOS MD July 27, 2020 07:49
[2020-07-27 08:06] LABS: BASO # 0.1 x10^3/uL (0.0-0.2); BASO % 1 % (0-3); EOS # 0.3 x10^3/uL (0.0-0.7); EOS % 4 % (0-3); HEMATOCRIT 32.5 % (36.0-47.0); HEMOGLOBIN 10.6 g/dL (12.0-15.5); LYMPH % 15 % (24-48); MEAN CORPUSCULAR HEMOGLOBIN 31 pg (25-35); MEAN CORPUSCULAR HGB CONC 33 g/dL (31-37); MEAN CORPUSCULAR VOLUME 96 fL (79-100); MONO # 0.5 x10^3/uL (0.0-1.1); MONO % 8 % (0-9); NEUT % 73 % (31-73); PLATELET COUNT 338 x10^3/uL (140-400); RED BLOOD COUNT 3.39 x10^6/uL (3.50-5.40); RED CELL DISTRIBUTION WIDTH 14.6 % (11.5-14.5); WHITE BLOOD COUNT 6.9 x10^3/uL (4.0-11.0)
[2020-07-27 08:13] LABS: CALCIUM 8.8 mg/dL (8.5-10.1); CREATININE 1.2 mg/dL (0.6-1.0); GFR 44.7; POTASSIUM 3.6 mmol/L (3.5-5.1)
[2020-07-27] MEDS: LACTOBACILLUS RHAMNOSUS GG 1 CAPSULE. PO SCH ×2 (09:34→21:08)
[2020-07-27] MEDS: AMIODARONE HCL 200 MG TABLET. PO SCH (09:34)
[2020-07-27] MEDS: LINEZOLID 600 MG TABLET PO SCH ×2 (09:34→21:08)
[2020-07-27] MEDS: METOPROLOL SUCC 24HR ER 50 MG TAB.ER.24H. PO SCH (09:34)
--- NOTE | 2020-07-27 09:56 | PDOC ---
PROGRESS NOTES Date of Service: DATE: 07/27/20 TIME: 09:55 Chief Complaint Chief Complaint IMPRESSION Sepsis and atrial fibrillation with rapid ventricular response, cellulitis and leukocytosis and urinary tract infection. ELECTROLYTE imbalance H/o NICM; LVEF perviously 25-30% 2015. Cath 05/2015 with normal coronaries. Echo 2018 shows LVEF recovery. NATASHA 07/08/20 with EV 50-55%. HAYDER CR BETTER 1.2 SUPER MORBID [employer]ES[employer] PLAN admitted to the cvc IV fluids, IV antibiotics. Continue cefazolin and Zyvox. iv d/c iv vanc Dose micafungin Consult Cardiology. Consult Infectious Disease. Home meds. Deep venous thrombosis prophylaxis. Full code. Long-term prognosis guarded. replace lytes 60,000 CFU/ML GRAM NEGATIVE RODS on 07/23/20 at 0736 FINAL ID= [ESCHERICHIA COLI] BLOOD CULTURE Preliminary NO GROWTH AFTER 4 DAYS History of Present Illness History of Present Illness The patient is a pleasant 69-year-old female who has a previous history of atrial fibrillation 5 years ago, now she presents with another rapid heart rate, has been occurring for a couple of days. She thought it would go away. She has some associated shortness of breath and some left arm discomfort. She ap parently was converted recently as an outpatient from her recurrent AFib. She has also increased her metoprolol. She is already on Xarelto. I discussed the case with ER physician. The patient has been admitted to the ICU. She has AFib with RVR and sepsis as well with cellulitis on the right UPPER AND lower extremity. 07/27/2020 Afebrile, no acute events overnight. She complains of pain in her right lower extremity; will discontinue IV pain medications and add orals. Monitor kidney function. Will also continue metoprolol and amiodarone for rate control. MRSA PCR pending, CONT Zosyn for now. Appreciate ID input No Doppler evidence of lower extremity deep venous thrombosis. CR 1.2 Continue cefazolin and Zyvox. iv begin micafungin d/w manuel PT/OT BLOOD CULTURE Preliminary NO GROWTH AFTER 4 DAYS 07/26 Afebrile, no acute events overnight. She complains of pain in her right lower extremity; will discontinue IV pain medications and add orals. Monitor kidney function. Will also continue metoprolol and amiodarone for rate control. MRSA PCR pending, D/C vancomycin and CONT Zosyn for now. Appreciate ID input on the management of this patient. No Doppler evidence of lower extremity deep venous thrombosis. CR 1.2 d/w rn BLOOD CULTURE Preliminary NO GROWTH AFTER 4 DAYS 07/25/2020 Afebrile, no acute events overnight. She complains of pain in her right lower extremity; will discontinue IV pain medications and add orals. Monitor kidney function. Will also continue metoprolol and amiodarone for rate control. MRSA PCR pending, continue vancomycin and Zosyn for now. Appreciate ID input on the management of this patient. No Doppler evidence of lower extremity deep venous thrombosis. CR 1.3 07/24/2020 Afebrile, no acute events overnight. She complains of pain in her right lower extremity; will discontinue IV pain medications and add orals. 90 mL net fluid output overnight; continue diuresis with Lasix IV x1. Monitor kidney function. Will also continue metoprolol and amiodarone for rate control. MRSA PCR pending, continue vancomycin and Zosyn for now. Appreciate ID input on the management of this patient. No Doppler evidence of lower extremity deep venous thrombosis. 07/23/2020 Afebrile, no acute events overnight. She complains of pain in her right lower extremity; will discontinue IV pain medications and add orals. 90 mL net fluid output overnight; continue diuresis with Lasix IV x1. Monitor kidney function. Will also continue metoprolol and amiodarone for rate control. MRSA PCR pending, continue vancomycin and Zosyn for now. Appreciate ID input on the management of this patient. Vitals Vitals Vital Signs Date Time Temp Pulse Resp B/P (MAP) Pulse Ox O2 Delivery O2 Flow Rate FiO2 07/27/20 09:34 82 155/82 07/27/20 07:52 Room Air 07/27/20 07:00 97.6 18 90 97.6 07/26/20 19:31 2.0 Physical Exam Physical Exam GENERAL: Alert and oriented x3 female lying in bed comfortably, in no acute distress. HEENT: Normocephalic, atraumatic. Anicteric. NECK: Supple. No JVD. LUNGS: Clear bilaterally. No wheezing. HEART: Irregularly irregular. ABDOMEN: Soft, nontender, nondistended, obese. EXTREMITIES: Right lower extremity swelling, erythema going up the thigh. No open wounds seen. NEUROLOGIC: Alert and oriented x3. Grossly nonfocal. PSYCHIATRIC: Cooperative, with appropriate mood, and affect. PIV looks clean. General: Alert, Oriented X3, Cooperative, No acute distress Heart: Regular rate, Normal S1, Normal S2, No murmurs, Other (AFIB, rate mostly controlled ) Lungs: Clear Abdomen: Normal bowel sounds, Soft, No tenderness, Other (obese ) Extremities: No clubbing, No cyanosis, Other (1+ bilalteral LE edema right upper leg cellulitis) Skin: No significant lesion, Other (Erythema to RLE ) Labs LABS Source of Information * Nursing * Medical Record Areas of Deficit/Decline in Function * Mobility * ADLs Recommendations for Rehab Services * O.T. Eval and Treat * P.T. Eval and Treat Other Information * Chart reviewed and pt would benefit from skilled OT/PT evaluation and tx. Please order when pt is appropriate. Thank you. URCE: BLOOD ENTR: 07/22/[address]: [facility]: ORDERED: BCULT Procedure Result BLOOD CULTURE Final NO GROWTH AFTER 5 DAYS Laboratory Tests Test 07/27/20 06:55 White Blood Count 6.9 x10^3/uL (4.0-11.0) Red Blood Count 3.39 x10^6/uL (3.50-5.40) Hemoglobin 10.6 g/dL (12.0-15.5) Hematocrit 32.5 % (36.0-47.0) Mean Corpuscular Volume 96 fL (79-100) Mean Corpuscular Hemoglobin 31 pg (25-35) Mean Corpuscular Hemoglobin Concent 33 g/dL (31-37) Red Cell Distribution Width 14.6 % (11.5-14.5) Platelet Count 338 x10^3/uL (140-400) Neutrophils (%) (Auto) 73 % (31-73) Lymphocytes (%) (Auto) 15 % (24-48) Monocytes (%) (Auto) 8 % (0-9) Eosinophils (%) (Auto) 4 % (0-3) Basophils (%) (Auto) 1 % (0-3) Neutrophils # (Auto) 5.0 x10^3/uL (1.8-7.7) Lymphocytes # (Auto) 1.0 x10^3/uL (1.0-4.8) Monocytes # (Auto) 0.5 x10^3/uL (0.0-1.1) Eosinophils # (Auto) 0.3 x10^3/uL (0.0-0.7) Basophils # (Auto) 0.1 x10^3/uL (0.0-0.2) Sodium Level 145 mmol/L (136-145) Potassium Level 3.6 mmol/L (3.5-5.1) Chloride Level 106 mmol/L (98-107) Carbon Dioxide Level 30 mmol/L (21-32) Anion Gap 9 (6-14) Blood Urea Nitrogen 9 mg/dL (7-20) Creatinine 1.2 mg/dL (0.6-1.0) Estimated GFR (Cockcroft-Gault) 44.7 Glucose Level 93 mg/dL (70-99) Calcium Level 8.8 mg/dL (8.5-10.1) Assessment and Plan Assessmemt and Plan Problems Medical Problems: (1) Atrial fibrillation with RVR Status: Acute (2) Cellulitis of right lower extremity Status: Acute (3) Sepsis Status: Acute (4) UTI (urinary tract infection) Status: Acute Comment Review of Relevant I have reviewed the following items maria c (where applicable) has been applied. Labs Laboratory Tests Test 07/26/20 07:45 07/27/20 06:55 White Blood Count 6.5 x10^3/uL (4.0-11.0) 6.9 x10^3/uL (4.0-11.0) Red Blood Count 3.27 x10^6/uL (3.50-5.40) 3.39 x10^6/uL (3.50-5.40) Hemoglobin 10.3 g/dL (12.0-15.5) 10.6 g/dL (12.0-15.5) Hematocrit 31.2 % (36.0-47.0) 32.5 % (36.0-47.0) Mean Corpuscular Volume 95 fL (79-100) 96 fL (79-100) Mean Corpuscular Hemoglobin 31 pg (25-35) 31 pg (25-35) Mean Corpuscular Hemoglobin Concent 33 g/dL (31-37) 33 g/dL (31-37) Red Cell Distribution Width 14.2 % (11.5-14.5) 14.6 % (11.5-14.5) Platelet Count 332 x10^3/uL (140-400) 338 x10^3/uL (140-400) Neutrophils (%) (Auto) 72 % (31-73) 73 % (31-73) Lymphocytes (%) (Auto) 16 % (24-48) 15 % (24-48) Monocytes (%) (Auto) 8 % (0-9) 8 % (0-9) Eosinophils (%) (Auto) 4 % (0-3) 4 % (0-3) Basophils (%) (Auto) 1 % (0-3) 1 % (0-3) Neutrophils # (Auto) 4.7 x10^3/uL (1.8-7.7) 5.0 x10^3/uL (1.8-7.7) Lymphocytes # (Auto) 1.0 x10^3/uL (1.0-4.8) 1.0 x10^3/uL (1.0-4.8) Monocytes # (Auto) 0.5 x10^3/uL (0.0-1.1) 0.5 x10^3/uL (0.0-1.1) Eosinophils # (Auto) 0.3 x10^3/uL (0.0-0.7) 0.3 x10^3/uL (0.0-0.7) Basophils # (Auto) 0.1 x10^3/uL (0.0-0.2) 0.1 x10^3/uL (0.0-0.2) Segmented Neutrophils % 72 % (35-66) Lymphocytes % 22 % (24-48) Monocytes % 4 % (0-10) Eosinophils % 2 % (0-5) Platelet Estimate Adequate (ADEQUATE) Large Platelets Occ Sodium Level 143 mmol/L (136-145) 145 mmol/L (136-145) Potassium Level 3.8 mmol/L (3.5-5.1) 3.6 mmol/L (3.5-5.1) Chloride Level 107 mmol/L (98-107) 106 mmol/L (98-107) Carbon Dioxide Level 29 mmol/L (21-32) 30 mmol/L (21-32) Anion Gap 7 (6-14) 9 (6-14) Blood Urea Nitrogen 10 mg/dL (7-20) 9 mg/dL (7-20) Creatinine 1.2 mg/dL (0.6-1.0) 1.2 mg/dL (0.6-1.0) Estimated GFR (Cockcroft-Gault) 44.7 44.7 Glucose Level 96 mg/dL (70-99) 93 mg/dL (70-99) Calcium Level 8.4 mg/dL (8.5-10.1) 8.8 mg/dL (8.5-10.1) Magnesium Level 1.9 mg/dL (1.8-2.4) Laboratory Tests Test 07/27/20 06:55 White Blood Count 6.9 x10^3/uL (4.0-11.0) Red Blood Count 3.39 x10^6/uL (3.50-5.40) Hemoglobin 10.6 g/dL (12.0-15.5) Hematocrit 32.5 % (36.0-47.0) Mean Corpuscular Volume 96 fL (79-100) Mean Corpuscular Hemoglobin 31 pg (25-35) Mean Corpuscular Hemoglobin Concent 33 g/dL (31-37) Red Cell Distribution Width 14.6 % (11.5-14.5) Platelet Count 338 x10^3/uL (140-400) Neutrophils (%) (Auto) 73 % (31-73) Lymphocytes (%) (Auto) 15 % (24-48) Monocytes (%) (Auto) 8 % (0-9) Eosinophils (%) (Auto) 4 % (0-3) Basophils (%) (Auto) 1 % (0-3) Neutrophils # (Auto) 5.0 x10^3/uL (1.8-7.7) Lymphocytes # (Auto) 1.0 x10^3/uL (1.0-4.8) Monocytes # (Auto) 0.5 x10^3/uL (0.0-1.1) Eosinophils # (Auto) 0.3 x10^3/uL (0.0-0.7) Basophils # (Auto) 0.1 x10^3/uL (0.0-0.2) Sodium Level 145 mmol/L (136-145) Potassium Level 3.6 mmol/L (3.5-5.1) Chloride Level 106 mmol/L (98-107) Carbon Dioxide Level 30 mmol/L (21-32) Anion Gap 9 (6-14) Blood Urea Nitrogen 9 mg/dL (7-20) Creatinine 1.2 mg/dL (0.6-1.0) Estimated GFR (Cockcroft-Gault) 44.7 Glucose Level 93 mg/dL (70-99) Calcium Level 8.8 mg/dL (8.5-10.1) Microbiology 07/22/20 Urine Culture - Final, Complete 07/22/20 Antimicrobic Susceptibility - Final, Complete 07/22/20 Blood Culture - Final, Complete NO GROWTH AFTER 5 DAYS Medications Current Medications Sodium Chloride 1,000 ml @ 1,000 mls/hr Q1H IV Last administered on 07/21/20at 22:58; Start 07/21/20 at 22:30; Stop 07/21/20 at 23:29; Status DC Diltiazem HCl (Cardizem Iv Push) 10 mg 1X ONCE IVP ; Start 07/21/20 at 22:00; Stop 07/21/20 at 21:55; Status DC Sodium Chloride 1,000 ml @ 1,000 mls/hr 1X ONCE IV Last administered on 07/21/20at 22:58; Start 07/21/20 at 22:30; Stop 07/21/20 at 23:29; Status DC Diltiazem HCl (Cardizem Iv Push) 20 mg 1X ONCE IVP Last administered on 07/21/20at 22:59; Start 07/21/20 at 22:30; Stop 07/21/20 at 22:31; Status DC Vancomycin HCl (Vanco Per Pharmacy) 1 each PRN DAILY PRN MC SEE COMMENTS Last administered on 07/24/20at 07:39; Start 07/21/20 at 22:15; Stop 07/25/20 at 11:14; Status DC Vancomycin HCl 2 gm/Sodium Chloride 500 ml @ 250 mls/hr 1X ONCE IV Last administered on 07/21/20at 23:31; Start 07/21/20 at 23:30; Stop 07/22/20 at 01:29; Status DC Acetaminophen (Tylenol) 650 mg 1X ONCE PO Last administered on 07/22/20at 01:16; Start 07/22/20 at 01:00; Stop 07/22/20 at 01:01; Status DC Vancomycin HCl 2 gm/Sodium Chloride 500 ml @ 250 mls/hr Q24H IV Last administered on 07/24/20at 23:23; Start 07/22/20 at 23:00; Stop 07/25/20 at 11:13; Status DC Vancomycin HCl (Vancomycin Trough Level) 1 each 1X ONCE MC Last administered on 07/23/20at 22:30; Start 07/23/20 at 22:30; Stop 07/23/20 at 22:31; Status DC Ceftriaxone Sodium (Rocephin) 1 gm 1X ONCE IVP Last administered on 07/22/20at 04:22; Start 07/22/20 at 04:00; Stop 07/22/20 at 04:01; Status DC Sodium Chloride 1,000 ml @ 125 mls/hr 1X ONCE IV Last administered on 07/22/20at 05:23; Start 07/22/20 at 05:30; Stop 07/22/20 at 13:29; Status DC Piperacillin Sod/ Tazobactam Sod (Zosyn Per Pharmacy) 1 each PRN DAILY PRN MC SEE COMMENTS; Start 07/22/20 at 05:15; Stop 07/25/20 at 11:15; Status DC Piperacillin Sod/ Tazobactam Sod 3.375 gm/Sodium Chloride 50 ml @ 100 mls/hr Q6HRS IV Last administered on 07/25/20at 06:23; Start 07/22/20 at 06:00; Stop 07/25/20 at 11:14; Status DC Lactobacillus Rhamnosus (Culturelle) 1 cap BID PO Last administered on 07/27/20at 09:34; Start 07/22/20 at 09:00 Fentanyl Citrate (Fentanyl 2ml Vial) 50 mcg PRN Q2HR PRN IVP PAIN Last administered on 07/23/20at 08:15; Start 07/22/20 at 10:30; Stop 07/23/20 at 10:06; Status DC Metoprolol Succinate (Toprol Xl) 50 mg DAILY PO Last administered on 07/27/20 09:34; Start 07/22/20 at 11:00 Rivaroxaban (Xarelto) 20 mg DAILYWSUP PO Last administered on 07/26/20at 16:43; Start 07/22/20 at 17:00 Amiodarone HCl (Cordarone) 200 mg DAILY PO Last administered on 07/27/20 09:34; Start 07/22/20 at 11:00 Digoxin (Lanoxin) 250 mcg 1X ONCE IV Last administered on 07/22/20at 11:22; Start 07/22/20 at 10:45; Stop 07/22/20 at 10:46; Status DC Acetaminophen (Tylenol) 650 mg PRN Q6HRS PRN PO MILD PAIN / TEMP > 100.3'F Last administered on 07/22/20at 12:49; Start 07/22/20 at 11:30 Furosemide (Lasix) 40 mg 1X ONCE IVP Last administered on 07/22/20at 15:08; Start 07/22/20 at 13:45; Stop 07/22/20 at 13:48; Status DC Potassium Phos/ Sodium Phos (Phos-Nak) 1 pkt Q12HR PO Last administered on 07/23/20at 10:18; Start 07/22/20 at 17:00; Stop 07/23/20 at 09:01; Status DC Furosemide (Lasix) 20 mg 1X ONCE IVP Last administered on 07/23/20at 08:15; Start 07/23/20 at 07:00; Stop 07/23/20 at 07:01; Status DC Acetaminophen/ Hydrocodone Bitart (Lortab 7.5/325) 1 tab PRN Q6HRS PRN PO SEVERE PAIN Last administered on 07/25/20at 09:27; Start 07/23/20 at 10:15 Acetaminophen/ Hydrocodone Bitart (Lortab 10/325) 1 tab PRN Q6HRS PRN PO SEVERE PAIN 2ND CHOICE Last administered on 07/24/20at 08:38; Start 07/23/20 at 10:15 Acetaminophen/ Hydrocodone Bitart (Lortab 5/325) 1 tab PRN Q4HRS PRN PO MODERATE PAIN Last administered on 07/26/20at 20:40; Start 07/23/20 at 10:15 Digoxin (Lanoxin) 250 mcg 1X ONCE IV Last administered on 07/23/20at 13:13; Start 07/23/20 at 12:45; Stop 07/23/20 at 12:46; Status DC Furosemide (Lasix) 40 mg 1X ONCE IVP Last administered on 07/24/20at 14:26; Start 07/24/20 at 14:15; Stop 07/24/20 at 14:16; Status DC Potassium Chloride (Klor-Con) 40 meq 1X ONCE PO Last administered on 07/24/20at 14:27; Start 07/24/20 at 14:15; Stop 07/24/20 at 14:16; Status DC Potassium Bicarbonate (Potassium Effervescent Tablet) 40 meq 1X ONCE FT ; Start 07/24/20 at 15:30; Stop 07/24/20 at 15:31; Status UNV Potassium Bicarbonate (Potassium Effervescent Tablet) 40 meq 1X ONCE FT ; Start 07/24/20 at 15:30; Stop 07/24/20 at 15:31; Status UNV Magnesium Sulfate 50 ml @ 25 mls/hr Q24H IV ; Start 07/24/20 at 15:30; Stop 07/26/20 at 17:29; Status UNV Potassium Phos/ Sodium Phos (Phos-Nak) 1 pkt BID PO ; Start 07/24/20 at 21:00; Stop 07/25/20 at 09:01; Status UNV Potassium Bicarbonate (Potassium Effervescent Tablet) 40 meq Q4H PO ; Start 07/24/20 at 15:30; Stop 07/24/20 at 19:31; Status UNV Info (Non-Icu Electrolyte Protocol) 1 ea CONT PRN PRN MC SEE COMMENTS; Start 07/24/20 at 15:45 Cefazolin Sodium/ Dextrose 50 ml @ 100 mls/hr Q8HRS IV Last administered on 07/27/20at 05:43; Start 07/25/20 at 14:00 Linezolid (Zyvox) 600 mg BID PO Last administered on 07/27/20at 09:34; Start 07/25/20 at 12:00 Micafungin Sodium 100 mg/Dextrose 100 ml @ 100 mls/hr Q24H IV Last administered on 07/26/20at 10:59; Start 07/26/20 at 10:00 Active Scripts Active Reported Amiodarone Hcl 100 Mg Tablet 1 Tab PO DAILY 30 Days Micardis (Telmisartan) 40 Mg Tablet 40 Mg PO DAILY Valtrex (Valacyclovir Hcl) 1,000 Mg Tablet 1 Tab PO DAILY Metoprolol Succinate ( Xl ) (Metoprolol Succinate) 100 Mg Tab.er.24h 50 Mg PO DAILY Xarelto (Rivaroxaban) 20 Mg Tablet 1 Tab PO DAILY 30 Days with food Vitals/I & O Vital Sign - Last 24 Hours 07/26/20 07/26/20 07/26/20 07/26/20 11:00 15:00 19:00 19:31 Temp 97.8 97.4 97.5 97.8 97.4 97.5 Pulse 94 79 88 Resp 20 20 17 B/P (MAP) 125/66 (85) 134/76 (95) 118/76 (90) Pulse Ox 97 95 95 O2 Delivery Room Air Room Air Room Air Room Air O2 Flow Rate 2.0 07/26/20 07/26/20 07/26/20 07/27/20 20:40 21:18 23:10 03:10 Temp 97.6 97.8 97.6 97.8 Pulse 80 82 Resp 18 16 18 18 B/P (MAP) 140/67 (91) 138/72 (94) Pulse Ox 95 95 O2 Delivery Room Air Room Air Room Air Room Air 07/27/20 07/27/20 07/27/20 07/27/20 07:00 07:52 09:34 09:34 Temp 97.6 97.6 Pulse 82 82 82 Resp 18 B/P (MAP) 155/82 (106) 155/82 155/82 Pulse Ox 90 O2 Delivery Room Air Room Air Intake and Output 07/26/20 07/26/20 07/27/20 15:00 23:00 07:00 Intake Total 480 ml 250 ml 150 ml Output Total 450 ml Balance 480 ml 250 ml -300 ml Justicifation of Admission Dx: Justifications for Admission: Justification of Admission Dx: Yes CHF: Cardiac Arrhythmias (AFIB with RVR) FARA PEDRO MD July 27, 2020 09:56
[2020-07-27] MEDS: MICAFUNGIN 100 MG in IV DEXTROSE 5% 100ML 100 ML IV SCH (10:52)
[2020-07-27 11:00] VITALS: BP 155/70
[2020-07-27 15:42] VITALS: BP 132/62
[2020-07-27] MEDS: RIVAROXABAN 10 MG TABLET. PO SCH (17:34)
[2020-07-27 19:45] VITALS: BP 167/62
[2020-07-27] MEDS: HYDROcodone/APAP 5/325MG 1 TAB TABLET PO PRN (21:08)
[2020-07-27 23:10] VITALS: BP 150/72
[2020-07-28 03:40] VITALS: BP 154/88
[2020-07-28 04:36] LABS: BASO # 0.1 x10^3/uL (0.0-0.2); BASO % 1 % (0-3); EOS # 0.2 x10^3/uL (0.0-0.7); EOS % 3 % (0-3); HEMATOCRIT 32.8 % (36.0-47.0); HEMOGLOBIN 10.6 g/dL (12.0-15.5); LYMPH # 0.9 x10^3/uL (1.0-4.8); LYMPH % 12 % (24-48); MEAN CORPUSCULAR HEMOGLOBIN 31 pg (25-35); MEAN CORPUSCULAR HGB CONC 32 g/dL (31-37); MEAN CORPUSCULAR VOLUME 96 fL (79-100); MONO # 0.6 x10^3/uL (0.0-1.1); MONO % 7 % (0-9); NEUT # 6.4 x10^3/uL (1.8-7.7); NEUT % 78 % (31-73); PLATELET COUNT 350 x10^3/uL (140-400); RED BLOOD COUNT 3.43 x10^6/uL (3.50-5.40); RED CELL DISTRIBUTION WIDTH 14.2 % (11.5-14.5); WHITE BLOOD COUNT 8.2 x10^3/uL (4.0-11.0)
[2020-07-28 04:56] LABS: CALCIUM 8.8 mg/dL (8.5-10.1); CREATININE 1.2 mg/dL (0.6-1.0); GFR 44.7; POTASSIUM 3.6 mmol/L (3.5-5.1)
[2020-07-28 07:00] VITALS: BP 196/80
--- NOTE | 2020-07-28 08:08 | PDOC ---
Infectious Disease Note Subjective: Subjective Patient feels better Right lower extremity swelling and redness improved Denies fever, nausea, vomiting, shortness of breath, abdominal pain, Otherwise as above Vital Signs: Vital Signs Vital Signs Date Time Temp Pulse Resp B/P (MAP) Pulse Ox O2 Delivery O2 Flow Rate FiO2 07/28/20 03:40 97.6 83 154/88 (110) 94 Room Air 97.6 07/27/20 23:10 22 07/27/20 19:30 2.0 Physical Exam: PHYSICAL EXAM GENERAL: Alert and oriented x3 female lying in bed comfortably, in no acute distress. HEENT: Normocephalic, atraumatic. Anicteric. NECK: Supple. No JVD. LUNGS: Clear bilaterally. No wheezing. HEART: Irregularly irregular. ABDOMEN: Soft, nontender, nondistended, obese. EXTREMITIES: Right lower extremity swelling, erythema going up the thigh. No open wounds seen. NEUROLOGIC: Alert and oriented x3. Grossly nonfocal. PSYCHIATRIC: Cooperative, with appropriate mood, and affect. PIV looks clean. Medications: Inpatient Meds: Medications reviewed. Labs: Lab Laboratory Tests Test 07/28/20 04:00 White Blood Count 8.2 x10^3/uL (4.0-11.0) Red Blood Count 3.43 x10^6/uL (3.50-5.40) Hemoglobin 10.6 g/dL (12.0-15.5) Hematocrit 32.8 % (36.0-47.0) Mean Corpuscular Volume 96 fL (79-100) Mean Corpuscular Hemoglobin 31 pg (25-35) Mean Corpuscular Hemoglobin Concent 32 g/dL (31-37) Red Cell Distribution Width 14.2 % (11.5-14.5) Platelet Count 350 x10^3/uL (140-400) Neutrophils (%) (Auto) 78 % (31-73) Lymphocytes (%) (Auto) 12 % (24-48) Monocytes (%) (Auto) 7 % (0-9) Eosinophils (%) (Auto) 3 % (0-3) Basophils (%) (Auto) 1 % (0-3) Neutrophils # (Auto) 6.4 x10^3/uL (1.8-7.7) Lymphocytes # (Auto) 0.9 x10^3/uL (1.0-4.8) Monocytes # (Auto) 0.6 x10^3/uL (0.0-1.1) Eosinophils # (Auto) 0.2 x10^3/uL (0.0-0.7) Basophils # (Auto) 0.1 x10^3/uL (0.0-0.2) Sodium Level 144 mmol/L (136-145) Potassium Level 3.6 mmol/L (3.5-5.1) Chloride Level 106 mmol/L (98-107) Carbon Dioxide Level 28 mmol/L (21-32) Anion Gap 10 (6-14) Blood Urea Nitrogen 10 mg/dL (7-20) Creatinine 1.2 mg/dL (0.6-1.0) Estimated GFR (Cockcroft-Gault) 44.7 Glucose Level 103 mg/dL (70-99) Calcium Level 8.8 mg/dL (8.5-10.1) Objective: Assessment: 1. Fever on admission, resolved. 2. Leukocytosis, improved. 3. Left lower extremity cellulitis. 4. E. coli urinary tract infection.Asymptomatic, could be colonization 5. Atrial fibrillation with rapid ventricular response. 6. Acute kidney injury. 7 Congestive heart failure 8. Diarrhea Plan: Plan of Care Patient can be discharged home from ID standpoint Start Keflex 500 mg p.o. 3 times daily for 7 days DC cefazolin and Zyvox Dose micafungin while here, then DC C. difficile negative Elevate left lower extremity. Follow up labs and cultures. Continue supportive care. We will sign off Call if any questions JOELLEN RAMOS MD July 28, 2020 08:08
[2020-07-28] MEDS: ACETAMINOPHEN 325 MG TABLET. PO PRN ×2 (08:29→16:53)
[2020-07-28] MEDS: LACTOBACILLUS RHAMNOSUS GG 1 CAPSULE. PO SCH ×2 (08:29→22:12)
[2020-07-28] MEDS: AMIODARONE HCL 200 MG TABLET. PO SCH (08:30)
[2020-07-28] MEDS: LINEZOLID 600 MG TABLET PO SCH (08:30)
[2020-07-28] MEDS: METOPROLOL SUCC 24HR ER 50 MG TAB.ER.24H. PO SCH (08:30)
--- NOTE | 2020-07-28 10:01 | PDOC ---
PROGRESS NOTES Date of Service: DATE: 07/28/20 TIME: 10:09 Chief Complaint Chief Complaint IMPRESSION Sepsis and atrial fibrillation with rapid ventricular response, cellulitis and leukocytosis and urinary tract infection. ELECTROLYTE imbalance H/o NICM; LVEF perviously 25-30% 2015. Cath 05/2015 with normal coronaries. Echo 2018 shows LVEF recovery. NATASHA 07/08/20 with EV 50-55%. HAYDER CR BETTER 1.2 SUPER MORBID [employer] PLAN admitted to the cvc IV fluids, IV antibiotics. Continue cefazolin and Zyvox. iv d/c iv vanc Dose micafungin Consult Cardiology. Consult Infectious Disease. Home meds. Deep venous thrombosis prophylaxis. Full code. Long-term prognosis guarded. replace lytes 60,000 CFU/ML GRAM NEGATIVE RODS on 07/23/20 at 0736 FINAL ID= [ESCHERICHIA COLI] BLOOD CULTURE Preliminary NO GROWTH AFTER 4 DAYS History of Present Illness History of Present Illness The patient is a pleasant 69-year-old female who has a previous history of atrial fibrillation 5 years ago, now she presents with another rapid heart rate, has been occurring for a couple of days. She thought it would go away. She has some associated shortness of breath and some left arm discomfort. She ap parently was converted recently as an outpatient from her recurrent AFib. She has also increased her metoprolol. She is already on Xarelto. I discussed the case with ER physician. The patient has been admitted to the ICU. She has AFib with RVR and sepsis as well with cellulitis on the right UPPER AND lower extremity. Start Keflex 500 mg p.o. 3 times daily for 7 days DC cefazolin and Zyvox 07/28/2020 discharge 07-29 to SNF Afebrile, no acute events overnight. Monitor kidney function. Will also continue metoprolol and amiodarone for rate control. Appreciate ID input No Doppler evidence of lower extremity deep venous thrombosis. CR 1.2 Continue KEFLEX 500 MG PO TID CONT micafungin WHILE HERE IV d/w rn PT/OT , MAY NEED SNF REHAB D/W pt and rn IN ROOM BLOOD CULTURE Preliminary NO GROWTH AFTER 4 DAYS Source of Information * Nursing * Medical Record Areas of Deficit/Decline in Function * Mobility * ADLs Recommendations for Rehab Services * O.T. Eval and Treat * P.T. Eval and Treat Other Information * Chart reviewed and pt would benefit from skilled OT/PT evaluation and tx. Please order when pt is appropriate. Thank you. 07/27/2020 Afebrile, no acute events overnight. She complains of pain in her right lower extremity; will discontinue IV pain medications and add orals. Monitor kidney function. Will also continue metoprolol and amiodarone for rate control. MRSA P CR pending, CONT Zosyn for now. Appreciate ID input No Doppler evidence of lower extremity deep venous thrombosis. CR 1.2 Continue cefazolin and Zyvox. iv begin micafungin d/w rn PT/OT BLOOD CULTURE Preliminary NO GROWTH AFTER 4 DAYS 07/26 Afebrile, no acute events overnight. She complains of pain in her right lower extremity; will discontinue IV pain medications and add orals. Monitor kidney function. Will also continue metoprolol and amiodarone for rate control. MRSA PCR pending, D/C vancomycin and CONT Zosyn for now. Appreciate ID input on the management of this patient. No Doppler evidence of lower extremity deep venous thrombosis. CR 1.2 d/w rn BLOOD CULTURE Preliminary NO GROWTH AFTER 4 DAYS 07/25/2020 Afebrile, no acute events overnight. She complains of pain in her right lower extremity; will discontinue IV pain medications and add orals. Monitor kidney function. Will also continue metoprolol and amiodarone for rate control. MRSA PCR pending, continue vancomycin and Zosyn for now. Appreciate ID input on the management of this patient. No Doppler evidence of lower extremity deep venous thrombosis. CR 1.3 07/24/2020 Afebrile, no acute events overnight. She complains of pain in her right lower extremity; will discontinue IV pain medications and add orals. 90 mL net fluid output overnight; continue diuresis with Lasix IV x1. Monitor kidney function. Will also continue metoprolol and amiodarone for rate control. MRSA PCR pending, continue vancomycin and Zosyn for now. Appreciate ID input on the management of this patient. No Doppler evidence of lower extremity deep venous thrombosis. 07/23/2020 Afebrile, no acute events overnight. She complains of pain in her right lower extremity; will discontinue IV pain medications and add orals. 90 mL net fluid output overnight; continue diuresis with Lasix IV x1. Monitor kidney function. Will also continue metoprolol and amiodarone for rate control. MRSA PCR pending, continue vancomycin and Zosyn for now. Appreciate ID input on the management of this patient. Vitals Vitals Vital Signs Date Time Temp Pulse Resp B/P (MAP) Pulse Ox O2 Delivery O2 Flow Rate FiO2 07/28/20 08:30 83 154/88 07/28/20 08:00 Room Air 07/28/20 07:00 97.5 14 90 97.5 07/27/20 19:30 2.0 Physical Exam Physical Exam GENERAL: Alert and oriented x3 female lying in bed comfortably, in no acute distress. HEENT: Normocephalic, atraumatic. Anicteric. NECK: Supple. No JVD. LUNGS: Clear bilaterally. No wheezing. HEART: Irregularly irregular. ABDOMEN: Soft, nontender, nondistended, obese. EXTREMITIES: Right lower extremity swelling, erythema going up the thigh. No open wounds seen. NEUROLOGIC: Alert and oriented x3. Grossly nonfocal. PSYCHIATRIC: Cooperative, with appropriate mood, and affect. PIV looks clean. General: Alert, Oriented X3, Cooperative, No acute distress Heart: Regular rate, Normal S1, Normal S2, No murmurs, Other (AFIB, rate mostly controlled ) Lungs: Clear Abdomen: Normal bowel sounds, Soft, No tenderness, Other (obese ) Extremities: No clubbing, No cyanosis, Other (1+ bilalteral LE edema right upper leg cellulitis) Skin: No significant lesion, Other (Erythema to RLE ) Labs LABS Laboratory Tests Test 07/28/20 04:00 White Blood Count 8.2 x10^3/uL (4.0-11.0) Red Blood Count 3.43 x10^6/uL (3.50-5.40) Hemoglobin 10.6 g/dL (12.0-15.5) Hematocrit 32.8 % (36.0-47.0) Mean Corpuscular Volume 96 fL (79-100) Mean Corpuscular Hemoglobin 31 pg (25-35) Mean Corpuscular Hemoglobin Concent 32 g/dL (31-37) Red Cell Distribution Width 14.2 % (11.5-14.5) Platelet Count 350 x10^3/uL (140-400) Neutrophils (%) (Auto) 78 % (31-73) Lymphocytes (%) (Auto) 12 % (24-48) Monocytes (%) (Auto) 7 % (0-9) Eosinophils (%) (Auto) 3 % (0-3) Basophils (%) (Auto) 1 % (0-3) Neutrophils # (Auto) 6.4 x10^3/uL (1.8-7.7) Lymphocytes # (Auto) 0.9 x10^3/uL (1.0-4.8) Monocytes # (Auto) 0.6 x10^3/uL (0.0-1.1) Eosinophils # (Auto) 0.2 x10^3/uL (0.0-0.7) Basophils # (Auto) 0.1 x10^3/uL (0.0-0.2) Sodium Level 144 mmol/L (136-145) Potassium Level 3.6 mmol/L (3.5-5.1) Chloride Level 106 mmol/L (98-107) Carbon Dioxide Level 28 mmol/L (21-32) Anion Gap 10 (6-14) Blood Urea Nitrogen 10 mg/dL (7-20) Creatinine 1.2 mg/dL (0.6-1.0) Estimated GFR (Cockcroft-Gault) 44.7 Glucose Level 103 mg/dL (70-99) Calcium Level 8.8 mg/dL (8.5-10.1) Assessment and Plan Assessmemt and Plan Problems Medical Problems: (1) Atrial fibrillation with RVR Status: Acute (2) Cellulitis of right lower extremity Status: Acute (3) Sepsis Status: Acute (4) UTI (urinary tract infection) Status: Acute Comment Review of Relevant I have reviewed the following items maria c (where applicable) has been applied. Labs Laboratory Tests Test 07/27/20 06:55 07/28/20 04:00 White Blood Count 6.9 x10^3/uL (4.0-11.0) 8.2 x10^3/uL (4.0-11.0) Red Blood Count 3.39 x10^6/uL (3.50-5.40) 3.43 x10^6/uL (3.50-5.40) Hemoglobin 10.6 g/dL (12.0-15.5) 10.6 g/dL (12.0-15.5) Hematocrit 32.5 % (36.0-47.0) 32.8 % (36.0-47.0) Mean Corpuscular Volume 96 fL (79-100) 96 fL (79-100) Mean Corpuscular Hemoglobin 31 pg (25-35) 31 pg (25-35) Mean Corpuscular Hemoglobin Concent 33 g/dL (31-37) 32 g/dL (31-37) Red Cell Distribution Width 14.6 % (11.5-14.5) 14.2 % (11.5-14.5) Platelet Count 338 x10^3/uL (140-400) 350 x10^3/uL (140-400) Neutrophils (%) (Auto) 73 % (31-73) 78 % (31-73) Lymphocytes (%) (Auto) 15 % (24-48) 12 % (24-48) Monocytes (%) (Auto) 8 % (0-9) 7 % (0-9) Eosinophils (%) (Auto) 4 % (0-3) 3 % (0-3) Basophils (%) (Auto) 1 % (0-3) 1 % (0-3) Neutrophils # (Auto) 5.0 x10^3/uL (1.8-7.7) 6.4 x10^3/uL (1.8-7.7) Lymphocytes # (Auto) 1.0 x10^3/uL (1.0-4.8) 0.9 x10^3/uL (1.0-4.8) Monocytes # (Auto) 0.5 x10^3/uL (0.0-1.1) 0.6 x10^3/uL (0.0-1.1) Eosinophils # (Auto) 0.3 x10^3/uL (0.0-0.7) 0.2 x10^3/uL (0.0-0.7) Basophils # (Auto) 0.1 x10^3/uL (0.0-0.2) 0.1 x10^3/uL (0.0-0.2) Sodium Level 145 mmol/L (136-145) 144 mmol/L (136-145) Potassium Level 3.6 mmol/L (3.5-5.1) 3.6 mmol/L (3.5-5.1) Chloride Level 106 mmol/L (98-107) 106 mmol/L (98-107) Carbon Dioxide Level 30 mmol/L (21-32) 28 mmol/L (21-32) Anion Gap 9 (6-14) 10 (6-14) Blood Urea Nitrogen 9 mg/dL (7-20) 10 mg/dL (7-20) Creatinine 1.2 mg/dL (0.6-1.0) 1.2 mg/dL (0.6-1.0) Estimated GFR (Cockcroft-Gault) 44.7 44.7 Glucose Level 93 mg/dL (70-99) 103 mg/dL (70-99) Calcium Level 8.8 mg/dL (8.5-10.1) 8.8 mg/dL (8.5-10.1) Laboratory Tests Test 07/28/20 04:00 White Blood Count 8.2 x10^3/uL (4.0-11.0) Red Blood Count 3.43 x10^6/uL (3.50-5.40) Hemoglobin 10.6 g/dL (12.0-15.5) Hematocrit 32.8 % (36.0-47.0) Mean Corpuscular Volume 96 fL (79-100) Mean Corpuscular Hemoglobin 31 pg (25-35) Mean Corpuscular Hemoglobin Concent 32 g/dL (31-37) Red Cell Distribution Width 14.2 % (11.5-14.5) Platelet Count 350 x10^3/uL (140-400) Neutrophils (%) (Auto) 78 % (31-73) Lymphocytes (%) (Auto) 12 % (24-48) Monocytes (%) (Auto) 7 % (0-9) Eosinophils (%) (Auto) 3 % (0-3) Basophils (%) (Auto) 1 % (0-3) Neutrophils # (Auto) 6.4 x10^3/uL (1.8-7.7) Lymphocytes # (Auto) 0.9 x10^3/uL (1.0-4.8) Monocytes # (Auto) 0.6 x10^3/uL (0.0-1.1) Eosinophils # (Auto) 0.2 x10^3/uL (0.0-0.7) Basophils # (Auto) 0.1 x10^3/uL (0.0-0.2) Sodium Level 144 mmol/L (136-145) Potassium Level 3.6 mmol/L (3.5-5.1) Chloride Level 106 mmol/L (98-107) Carbon Dioxide Level 28 mmol/L (21-32) Anion Gap 10 (6-14) Blood Urea Nitrogen 10 mg/dL (7-20) Creatinine 1.2 mg/dL (0.6-1.0) Estimated GFR (Cockcroft-Gault) 44.7 Glucose Level 103 mg/dL (70-99) Calcium Level 8.8 mg/dL (8.5-10.1) Microbiology 07/22/20 Urine Culture - Final, Complete 07/22/20 Antimicrobic Susceptibility - Final, Complete 07/22/20 Blood Culture - Final, Complete NO GROWTH AFTER 5 DAYS Medications Current Medications Sodium Chloride 1,000 ml @ 1,000 mls/hr Q1H IV Last administered on 07/21/20at 22:58; Start 07/21/20 at 22:30; Stop 07/21/20 at 23:29; Status DC Diltiazem HCl (Cardizem Iv Push) 10 mg 1X ONCE IVP ; Start 07/21/20 at 22:00; Stop 07/21/20 at 21:55; Status DC Sodium Chloride 1,000 ml @ 1,000 mls/hr 1X ONCE IV Last administered on 07/21/20at 22:58; Start 07/21/20 at 22:30; Stop 07/21/20 at 23:29; Status DC Diltiazem HCl (Cardizem Iv Push) 20 mg 1X ONCE IVP Last administered on 07/21/20at 22:59; Start 07/21/20 at 22:30; Stop 07/21/20 at 22:31; Status DC Vancomycin HCl (Vanco Per Pharmacy) 1 each PRN DAILY PRN MC SEE COMMENTS Last administered on 07/24/20at 07:39; Start 07/21/20 at 22:15; Stop 07/25/20 at 11:14; Status DC Vancomycin HCl 2 gm/Sodium Chloride 500 ml @ 250 mls/hr 1X ONCE IV Last administered on 07/21/20at 23:31; Start 07/21/20 at 23:30; Stop 07/22/20 at 01:29; Status DC Acetaminophen (Tylenol) 650 mg 1X ONCE PO Last administered on 07/22/20at 01:16; Start 07/22/20 at 01:00; Stop 07/22/20 at 01:01; Status DC Vancomycin HCl 2 gm/Sodium Chloride 500 ml @ 250 mls/hr Q24H IV Last administered on 07/24/20at 23:23; Start 07/22/20 at 23:00; Stop 07/25/20 at 11:13; Status DC Vancomycin HCl (Vancomycin Trough Level) 1 each 1X ONCE MC Last administered on 07/23/20at 22:30; Start 07/23/20 at 22:30; Stop 07/23/20 at 22:31; Status DC Ceftriaxone Sodium (Rocephin) 1 gm 1X ONCE IVP Last administered on 07/22/20at 04:22; Start 07/22/20 at 04:00; Stop 07/22/20 at 04:01; Status DC Sodium Chloride 1,000 ml @ 125 mls/hr 1X ONCE IV Last administered on 07/22/20at 05:23; Start 07/22/20 at 05:30; Stop 07/22/20 at 13:29; Status DC Piperacillin Sod/ Tazobactam Sod (Zosyn Per Pharmacy) 1 each PRN DAILY PRN MC SEE COMMENTS; Start 07/22/20 at 05:15; Stop 07/25/20 at 11:15; Status DC Piperacillin Sod/ Tazobactam Sod 3.375 gm/Sodium Chloride 50 ml @ 100 mls/hr Q6HRS IV Last administered on 07/25/20at 06:23; Start 07/22/20 at 06:00; Stop 07/25/20 at 11:14; Status DC Lactobacillus Rhamnosus (Culturelle) 1 cap BID PO Last administered on 07/28/20 08:29; Start 07/22/20 at 09:00 Fentanyl Citrate (Fentanyl 2ml Vial) 50 mcg PRN Q2HR PRN IVP PAIN Last administered on 07/23/20 08:15; Start 07/22/20 at 10:30; Stop 07/23/20 at 10:06; Status DC Metoprolol Succinate (Toprol Xl) 50 mg DAILY PO Last administered on 07/28/20 08:30; Start 07/22/20 at 11:00 Rivaroxaban (Xarelto) 20 mg DAILYWSUP PO Last administered on 07/27/20 17:34; Start 07/22/20 at 17:00 Amiodarone HCl (Cordarone) 200 mg DAILY PO Last administered on 07/28/20 08:30; Start 07/22/20 at 11:00 Digoxin (Lanoxin) 250 mcg 1X ONCE IV Last administered on 07/22/20 11:22; Start 07/22/20 at 10:45; Stop 07/22/20 at 10:46; Status DC Acetaminophen (Tylenol) 650 mg PRN Q6HRS PRN PO MILD PAIN / TEMP > 100.3'F Last administered on 07/28/20 08:29; Start 07/22/20 at 11:30 Furosemide (Lasix) 40 mg 1X ONCE IVP Last administered on 07/22/20 15:08; Start 07/22/20 at 13:45; Stop 07/22/20 at 13:48; Status DC Potassium Phos/ Sodium Phos (Phos-Nak) 1 pkt Q12HR PO Last administered on 07/23/20at 10:18; Start 07/22/20 at 17:00; Stop 07/23/20 at 09:01; Status DC Furosemide (Lasix) 20 mg 1X ONCE IVP Last administered on 07/23/20 08:15; Start 07/23/20 at 07:00; Stop 07/23/20 at 07:01; Status DC Acetaminophen/ Hydrocodone Bitart (Lortab 7.5/325) 1 tab PRN Q6HRS PRN PO SEVERE PAIN Last administered on 07/25/20 09:27; Start 07/23/20 at 10:15 Acetaminophen/ Hydrocodone Bitart (Lortab 10/325) 1 tab PRN Q6HRS PRN PO SEVERE PAIN 2ND CHOICE Last administered on 07/24/20at 08:38; Start 07/23/20 at 10:15 Acetaminophen/ Hydrocodone Bitart (Lortab 5/325) 1 tab PRN Q4HRS PRN PO MODERATE PAIN Last administered on 07/27/20at 21:08; Start 07/23/20 at 10:15 Digoxin (Lanoxin) 250 mcg 1X ONCE IV Last administered on 07/23/20at 13:13; Start 07/23/20 at 12:45; Stop 07/23/20 at 12:46; Status DC Furosemide (Lasix) 40 mg 1X ONCE IVP Last administered on 07/24/20at 14:26; Start 07/24/20 at 14:15; Stop 07/24/20 at 14:16; Status DC Potassium Chloride (Klor-Con) 40 meq 1X ONCE PO Last administered on 07/24/20at 14:27; Start 07/24/20 at 14:15; Stop 07/24/20 at 14:16; Status DC Potassium Bicarbonate (Potassium Effervescent Tablet) 40 meq 1X ONCE FT ; Start 07/24/20 at 15:30; Stop 07/24/20 at 15:31; Status UNV Potassium Bicarbonate (Potassium Effervescent Tablet) 40 meq 1X ONCE FT ; Start 07/24/20 at 15:30; Stop 07/24/20 at 15:31; Status UNV Magnesium Sulfate 50 ml @ 25 mls/hr Q24H IV ; Start 07/24/20 at 15:30; Stop 07/26/20 at 17:29; Status UNV Potassium Phos/ Sodium Phos (Phos-Nak) 1 pkt BID PO ; Start 07/24/20 at 21:00; Stop 07/25/20 at 09:01; Status UNV Potassium Bicarbonate (Potassium Effervescent Tablet) 40 meq Q4H PO ; Start 07/24/20 at 15:30; Stop 07/24/20 at 19:31; Status UNV Info (Non-Icu Electrolyte Protocol) 1 ea CONT PRN PRN MC SEE COMMENTS; Start 07/24/20 at 15:45 Cefazolin Sodium/ Dextrose 50 ml @ 100 mls/hr Q8HRS IV Last administered on 07/28/20at 05:44; Start 07/25/20 at 14:00; Stop 07/28/20 at 09:01; Status DC Linezolid (Zyvox) 600 mg BID PO Last administered on 07/28/20at 08:30; Start 07/25/20 at 12:00; Stop 07/28/20 at 09:01; Status DC Micafungin Sodium 100 mg/Dextrose 100 ml @ 100 mls/hr Q24H IV Last administered on 07/27/20at 10:52; Start 07/26/20 at 10:00 Cephalexin HCl (Keflex) 500 mg TID PO ; Start 07/28/20 at 14:00 Active Scripts Active Reported Amiodarone Hcl 100 Mg Tablet 1 Tab PO DAILY 30 Days Micardis (Telmisartan) 40 Mg Tablet 40 Mg PO DAILY Valtrex (Valacyclovir Hcl) 1,000 Mg Tablet 1 Tab PO DAILY Metoprolol Succinate ( Xl ) (Metoprolol Succinate) 100 Mg Tab.er.24h 50 Mg PO DAILY Xarelto (Rivaroxaban) 20 Mg Tablet 1 Tab PO DAILY 30 Days with food Vitals/I & O Vital Sign - Last 24 Hours 07/27/20 07/27/20 07/27/20 07/27/20 11:00 15:42 19:30 19:45 Temp 97.8 97.6 97.7 97.8 97.6 97.7 Pulse 82 68 80 Resp 18 18 22 B/P (MAP) 155/70 (98) 132/62 (85) 167/62 (97) Pulse Ox 92 94 94 O2 Delivery Room Air Room Air Room Air Room Air O2 Flow Rate 2.0 07/27/20 07/27/20 07/27/20 07/28/20 21:08 21:47 23:10 03:40 Temp 97.9 97.6 97.9 97.6 Pulse 93 83 Resp 16 16 22 B/P (MAP) 150/72 (98) 154/88 (110) Pulse Ox 95 94 O2 Delivery Room Air Room Air Room Air Room Air 07/28/20 07/28/20 07/28/20 07/28/20 07:00 08:00 08:30 08:30 Temp 97.5 97.5 Pulse 87 83 83 Resp 14 B/P (MAP) 196/80 (118) 154/88 154/88 Pulse Ox 90 O2 Delivery Room Air Room Air Intake and Output 07/27/20 07/27/20 07/28/20 14:52 22:52 06:52 Intake Total 400 ml 250 ml 400 ml Output Total 800 ml 350 ml Balance -400 ml -100 ml 400 ml Justicifation of Admission Dx: Justifications for Admission: Justification of Admission Dx: Yes CHF: Cardiac Arrhythmias (AFIB with RVR) FARA PEDRO MD July 28, 2020 10:01
[2020-07-28 11:03] VITALS: BP 167/89
[2020-07-28] MEDS: MICAFUNGIN 100 MG in IV DEXTROSE 5% 100ML 100 ML IV SCH (11:19)
[2020-07-28] MEDS: CEPHALEXIN 250 MG CAPSULE. PO SCH ×2 (14:16→22:12)
[2020-07-28 15:00] VITALS: BP 176/93
[2020-07-28] MEDS: RIVAROXABAN 10 MG TABLET. PO SCH (16:53)
[2020-07-28] MEDS ORDERED: hydrALAZINE 20 MG/ML VIAL. IVP ONE (17:00)
[2020-07-28] MEDS ORDERED: hydrALAZINE 20 MG/ML VIAL. IVP PRN (17:00)
[2020-07-28] MEDS ORDERED: ZOLPIDEM 5 MG TABLET. PO PRN (18:45)
[2020-07-28 19:10] VITALS: BP 151/61
[2020-07-28] MEDS: HYDROcodone/APAP 5/325MG 1 TAB TABLET PO PRN (22:12)
[2020-07-28 23:03] VITALS: BP 183/70
[2020-07-29] MEDS: ACETAMINOPHEN 325 MG TABLET. PO PRN ×2 (00:12→09:58)
[2020-07-29 02:32] VITALS: BP 136/71
[2020-07-29 07:00] VITALS: BP 175/86
--- NOTE | 2020-07-29 08:55 | PDOC ---
PROGRESS NOTES Date of Service: DATE: 07/29/20 TIME: 08:55 Chief Complaint Chief Complaint IMPRESSION Sepsis and atrial fibrillation with rapid ventricular response, cellulitis and leukocytosis and urinary tract infection. ELECTROLYTE imbalance H/o NICM; LVEF perviously 25-30% 2015. Cath 05/2015 with normal coronaries. Echo 2018 shows LVEF recovery. NATASHA 07/08/20 with EV 50-55%. HAYDER CR BETTER 1.2 SUPER MORBID OBESITY DEBILITY due to obesity PLAN admitted to the cvc IV fluids, IV antibiotics. Continue cefazolin and Zyvox. iv d/c iv vanc Dose micafungin Consult Cardiology. Consult Infectious Disease. Home meds. Deep venous thrombosis prophylaxis. Full code. Long-term prognosis guarded. replace giorgio d/c planning 34 min 60,000 CFU/ML GRAM NEGATIVE RODS on 07/23/20 at 0736 FINAL ID= [ESCHERICHIA COLI] ---- ------- BLOOD CULTURE Preliminary NO GROWTH AFTER 4 DAYS History of Present Illness History of Present Illness The patient is a pleasant 69-year-old female who has a previous history of atrial fibrillation 5 years ago, now she presents with another rapid heart rate, has been occurring for a couple of days. She thought it would go away. She has some associated shortness of breath and some left arm discomfort. She apparently was converted recently as an outpatient from her recurrent AFib. She has also increased her metoprolol. She is already on Xarelto. I discussed the case with ER physician. The patient has been admitted to the ICU. She has AFib with RVR and sepsis as well with cellulitis on the right UPPER AND lower extremity. Start Keflex 500 mg p.o. 3 times daily for 7 days DC cefazolin and Zyvox 07/29/2020 discharge 07-29 to SNF Afebrile, no acute events overnight. Monitor kidney function. Will also continue metoprolol and amiodarone for rate control. Appreciate ID input No Doppler evidence of lower extremity deep venous thrombosis. CR 1.2 Continue KEFLEX 500 MG PO TID CONT micafungin WHILE HERE IV d/w rn PT/OT , MAY NEED SNF REHAB D/W pt and rn IN ROOM Start Keflex 500 mg p.o. 3 times daily for 7 days DC cefazolin and Zyvox 07/28/2020 discharge 07-29 to SNF Afebrile, no acute events overnight. Monitor kidney function. Will also continue metoprolol and amiodarone for rate control. Appreciate ID input No Doppler evidence of lower extremity deep venous thrombosis. CR 1.2 Continue KEFLEX 500 MG PO TID CONT micafungin WHILE HERE IV d/w rn PT/OT , MAY NEED SNF REHAB D/W pt and rn IN ROOM BLOOD CULTURE Preliminary NO GROWTH AFTER 4 DAYS Source of Information * Nursing * Medical Record Areas of Deficit/Decline in Function * Mobility * ADLs Recommendations for Rehab Services * O.T. Eval and Treat * P.T. Eval and Treat Other Information * Chart reviewed and pt would benefit from skilled OT/PT evaluation and tx. Please order when pt is appropriate. Thank you. 07/27/2020 Afebrile, no acute events overnight. She complains of pain in her right lower extremity; will discontinue IV pain medications and add orals. Monitor kidney function. Will also continue metoprolol and amiodarone for rate control. MRSA PCR pending, CONT Zosyn for now. Appreciate ID input No Doppler evidence of lower extremity deep venous thrombosis. CR 1.2 Continue cefazolin and Zyvox. iv begin micafungin d/w rn PT/OT BLOOD CULTURE Preliminary NO GROWTH AFTER 4 DAYS 07/26 Afebrile, no acute events overnight. She complains of pain in her right lower extremity; will discontinue IV pain medications and add orals. Monitor kidney function. Will also continue metoprolol and amiodarone for rate control. MRSA P CR pending, D/C vancomycin and CONT Zosyn for now. Appreciate ID input on the management of this patient. No Doppler evidence of lower extremity deep venous thrombosis. CR 1.2 d/w rn BLOOD CULTURE Preliminary NO GROWTH AFTER 4 DAYS 07/25/2020 Afebrile, no acute events overnight. She complains of pain in her right lower extremity; will discontinue IV pain medications and add orals. Monitor kidney function. Will also continue metoprolol and amiodarone for rate control. MRSA PCR pending, continue vancomycin and Zosyn for now. Appreciate ID input on the management of this patient. No Doppler evidence of lower extremity deep venous thrombosis. CR 1.3 07/24/2020 Afebrile, no acute events overnight. She complains of pain in her right lower extremity; will discontinue IV pain medications and add orals. 90 mL net fluid output overnight; continue diuresis with Lasix IV x1. Monitor kidney function. Will also continue metoprolol and amiodarone for rate control. MRSA PCR pending, continue vancomycin and Zosyn for now. Appreciate ID input on the management of this patient. No Doppler evidence of lower extremity deep venous thrombosis. 07/23/2020 Afebrile, no acute events overnight. She complains of pain in her right lower extremity; will discontinue IV pain medications and add orals. 90 mL net fluid output overnight; continue diuresis with Lasix IV x1. Monitor kidney function. Will also continue metoprolol and amiodarone for rate control. MRSA PCR pending, continue vancomycin and Zosyn for now. Appreciate ID input on the management of this patient. Vitals Vitals Vital Signs Date Time Temp Pulse Resp B/P (MAP) Pulse Ox O2 Delivery O2 Flow Rate FiO2 07/29/20 07:00 97.8 98 18 175/86 (115) 90 Room Air 97.8 Physical Exam Physical Exam GENERAL: Alert and oriented x3 female lying in bed comfortably, in no acute distress. HEENT: Normocephalic, atraumatic. Anicteric. NECK: Supple. No JVD. LUNGS: Clear bilaterally. No wheezing. HEART: Irregularly irregular. ABDOMEN: Soft, nontender, nondistended, obese. EXTREMITIES: Right lower extremity swelling, erythema going up the thigh. No open wounds seen. NEUROLOGIC: Alert and oriented x3. Grossly nonfocal. PSYCHIATRIC: Cooperative, with appropriate mood, and affect. PIV looks clean. General: Alert, Oriented X3, Cooperative, No acute distress Heart: Regular rate, Normal S1, Normal S2, No murmurs, Other (AFIB, rate mostly controlled ) Lungs: Clear Abdomen: Normal bowel sounds, Soft, No tenderness, Other (obese ) Extremities: No clubbing, No cyanosis, Other (1+ bilalteral LE edema right upp er leg cellulitis) Skin: No significant lesion, Other (Erythema to RLE ) Assessment and Plan Assessmemt and Plan Problems Medical Problems: (1) Atrial fibrillation with RVR Status: Acute (2) Cellulitis of right lower extremity Status: Acute (3) Sepsis Status: Acute (4) UTI (urinary tract infection) Status: Acute Comment Review of Relevant I have reviewed the following items maria c (where applicable) has been applied. Labs Laboratory Tests Test 07/28/20 04:00 White Blood Count 8.2 x10^3/uL (4.0-11.0) Red Blood Count 3.43 x10^6/uL (3.50-5.40) Hemoglobin 10.6 g/dL (12.0-15.5) Hematocrit 32.8 % (36.0-47.0) Mean Corpuscular Volume 96 fL (79-100) Mean Corpuscular Hemoglobin 31 pg (25-35) Mean Corpuscular Hemoglobin Concent 32 g/dL (31-37) Red Cell Distribution Width 14.2 % (11.5-14.5) Platelet Count 350 x10^3/uL (140-400) Neutrophils (%) (Auto) 78 % (31-73) Lymphocytes (%) (Auto) 12 % (24-48) Monocytes (%) (Auto) 7 % (0-9) Eosinophils (%) (Auto) 3 % (0-3) Basophils (%) (Auto) 1 % (0-3) Neutrophils # (Auto) 6.4 x10^3/uL (1.8-7.7) Lymphocytes # (Auto) 0.9 x10^3/uL (1.0-4.8) Monocytes # (Auto) 0.6 x10^3/uL (0.0-1.1) Eosinophils # (Auto) 0.2 x10^3/uL (0.0-0.7) Basophils # (Auto) 0.1 x10^3/uL (0.0-0.2) Sodium Level 144 mmol/L (136-145) Potassium Level 3.6 mmol/L (3.5-5.1) Chloride Level 106 mmol/L (98-107) Carbon Dioxide Level 28 mmol/L (21-32) Anion Gap 10 (6-14) Blood Urea Nitrogen 10 mg/dL (7-20) Creatinine 1.2 mg/dL (0.6-1.0) Estimated GFR (Cockcroft-Gault) 44.7 Glucose Level 103 mg/dL (70-99) Calcium Level 8.8 mg/dL (8.5-10.1) Microbiology 07/22/20 Urine Culture - Final, Complete 07/22/20 Antimicrobic Susceptibility - Final, Complete 07/22/20 Blood Culture - Final, Complete NO GROWTH AFTER 5 DAYS Medications Current Medications Sodium Chloride 1,000 ml @ 1,000 mls/hr Q1H IV Last administered on 07/21/20at 22:58; Start 07/21/20 at 22:30; Stop 07/21/20 at 23:29; Status DC Diltiazem HCl (Cardizem Iv Push) 10 mg 1X ONCE IVP ; Start 07/21/20 at 22:00; Stop 07/21/20 at 21:55; Status DC Sodium Chloride 1,000 ml @ 1,000 mls/hr 1X ONCE IV Last administered on 07/21/20at 22:58; Start 07/21/20 at 22:30; Stop 07/21/20 at 23:29; Status DC Diltiazem HCl (Cardizem Iv Push) 20 mg 1X ONCE IVP Last administered on 07/21/20at 22:59; Start 07/21/20 at 22:30; Stop 07/21/20 at 22:31; Status DC Vancomycin HCl (Vanco Per Pharmacy) 1 each PRN DAILY PRN MC SEE COMMENTS Last administered on 07/24/20at 07:39; Start 07/21/20 at 22:15; Stop 07/25/20 at 11:14; Status DC Vancomycin HCl 2 gm/Sodium Chloride 500 ml @ 250 mls/hr 1X ONCE IV Last administered on 07/21/20at 23:31; Start 07/21/20 at 23:30; Stop 07/22/20 at 01:29; Status DC Acetaminophen (Tylenol) 650 mg 1X ONCE PO Last administered on 07/22/20at 01:16; Start 07/22/20 at 01:00; Stop 07/22/20 at 01:01; Status DC Vancomycin HCl 2 gm/Sodium Chloride 500 ml @ 250 mls/hr Q24H IV Last administered on 07/24/20at 23:23; Start 07/22/20 at 23:00; Stop 07/25/20 at 11:13; Status DC Vancomycin HCl (Vancomycin Trough Level) 1 each 1X ONCE MC Last administered on 07/23/20at 22:30; Start 07/23/20 at 22:30; Stop 07/23/20 at 22:31; Status DC Ceftriaxone Sodium (Rocephin) 1 gm 1X ONCE IVP Last administered on 07/22/20at 04:22; Start 07/22/20 at 04:00; Stop 07/22/20 at 04:01; Status DC Sodium Chloride 1,000 ml @ 125 mls/hr 1X ONCE IV Last administered on 07/22/20at 05:23; Start 07/22/20 at 05:30; Stop 07/22/20 at 13:29; Status DC Piperacillin Sod/ Tazobactam Sod (Zosyn Per Pharmacy) 1 each PRN DAILY PRN MC SEE COMMENTS; Start 07/22/20 at 05:15; Stop 07/25/20 at 11:15; Status DC Piperacillin Sod/ Tazobactam Sod 3.375 gm/Sodium Chloride 50 ml @ 100 mls/hr Q6HRS IV Last administered on 07/25/20at 06:23; Start 07/22/20 at 06:00; Stop 07/25/20 at 11:14; Status DC Lactobacillus Rhamnosus (Culturelle) 1 cap BID PO Last administered on 07/28/20at 22:12; Start 07/22/20 at 09:00 Fentanyl Citrate (Fentanyl 2ml Vial) 50 mcg PRN Q2HR PRN IVP PAIN Last administered on 07/23/20at 08:15; Start 07/22/20 at 10:30; Stop 07/23/20 at 10:06; Status DC Metoprolol Succinate (Toprol Xl) 50 mg DAILY PO Last administered on 07/28/20 08:30; Start 07/22/20 at 11:00 Rivaroxaban (Xarelto) 20 mg DAILYWSUP PO Last administered on 07/28/20at 16:53; Start 07/22/20 at 17:00 Amiodarone HCl (Cordarone) 200 mg DAILY PO Last administered on 07/28/20 08:30; Start 07/22/20 at 11:00 Digoxin (Lanoxin) 250 mcg 1X ONCE IV Last administered on 07/22/20 11:22; Start 07/22/20 at 10:45; Stop 07/22/20 at 10:46; Status DC Acetaminophen (Tylenol) 650 mg PRN Q6HRS PRN PO MILD PAIN / TEMP > 100.3'F Last administered on 07/29/20 00:12; Start 07/22/20 at 11:30 Furosemide (Lasix) 40 mg 1X ONCE IVP Last administered on 07/22/20 15:08; Start 07/22/20 at 13:45; Stop 07/22/20 at 13:48; Status DC Potassium Phos/ Sodium Phos (Phos-Nak) 1 pkt Q12HR PO Last administered on 07/23/20 10:18; Start 07/22/20 at 17:00; Stop 07/23/20 at 09:01; Status DC Furosemide (Lasix) 20 mg 1X ONCE IVP Last administered on 07/23/20 08:15; Start 07/23/20 at 07:00; Stop 07/23/20 at 07:01; Status DC Acetaminophen/ Hydrocodone Bitart (Lortab 7.5/325) 1 tab PRN Q6HRS PRN PO SEVERE PAIN Last administered on 07/25/20 09:27; Start 07/23/20 at 10:15 Acetaminophen/ Hydrocodone Bitart (Lortab 10/325) 1 tab PRN Q6HRS PRN PO SEVERE PAIN 2ND CHOICE Last administered on 07/24/20 08:38; Start 07/23/20 at 10:15 Acetaminophen/ Hydrocodone Bitart (Lortab 5/325) 1 tab PRN Q4HRS PRN PO MODERATE PAIN Last administered on 07/28/20 22:12; Start 07/23/20 at 10:15 Digoxin (Lanoxin) 250 mcg 1X ONCE IV Last administered on 07/23/20 13:13; Start 07/23/20 at 12:45; Stop 07/23/20 at 12:46; Status DC Furosemide (Lasix) 40 mg 1X ONCE IVP Last administered on 07/24/20 14:26; Start 07/24/20 at 14:15; Stop 07/24/20 at 14:16; Status DC Potassium Chloride (Klor-Con) 40 meq 1X ONCE PO Last administered on 07/24/20at 14:27; Start 07/24/20 at 14:15; Stop 07/24/20 at 14:16; Status DC Potassium Bicarbonate (Potassium Effervescent Tablet) 40 meq 1X ONCE FT ; Start 07/24/20 at 15:30; Stop 07/24/20 at 15:31; Status UNV Potassium Bicarbonate (Potassium Effervescent Tablet) 40 meq 1X ONCE FT ; Start 07/24/20 at 15:30; Stop 07/24/20 at 15:31; Status UNV Magnesium Sulfate 50 ml @ 25 mls/hr Q24H IV ; Start 07/24/20 at 15:30; Stop 07/26/20 at 17:29; Status UNV Potassium Phos/ Sodium Phos (Phos-Nak) 1 pkt BID PO ; Start 07/24/20 at 21:00; Stop 07/25/20 at 09:01; Status UNV Potassium Bicarbonate (Potassium Effervescent Tablet) 40 meq Q4H PO ; Start 07/24/20 at 15:30; Stop 07/24/20 at 19:31; Status UNV Info (Non-Icu Electrolyte Protocol) 1 ea CONT PRN PRN MC SEE COMMENTS; Start 07/24/20 at 15:45 Cefazolin Sodium/ Dextrose 50 ml @ 100 mls/hr Q8HRS IV Last administered on 07/28/20at 05:44; Start 07/25/20 at 14:00; Stop 07/28/20 at 09:01; Status DC Linezolid (Zyvox) 600 mg BID PO Last administered on 07/28/20at 08:30; Start 07/25/20 at 12:00; Stop 07/28/20 at 09:01; Status DC Micafungin Sodium 100 mg/Dextrose 100 ml @ 100 mls/hr Q24H IV Last administered on 07/28/20at 11:19; Start 07/26/20 at 10:00 Cephalexin HCl (Keflex) 500 mg TID PO Last administered on 07/28/20at 22:12; Start 07/28/20 at 14:00 Hydralazine HCl (Apresoline Inj) 10 mg PRN Q4HRS PRN IVP ELEVATED BP, SEE COMMENTS Last administered on 07/28/20at 22:18; Start 07/28/20 at 17:00 Hydralazine HCl (Apresoline Inj) 10 mg 1X ONCE IVP Last administered on 07/28/20at 17:58; Start 07/28/20 at 17:00; Stop 07/28/20 at 17:02; Status DC Zolpidem Tartrate (Ambien) 5 mg PRN QHS PRN PO INSOMNIA Last administered on 07/29/20at 00:07; Start 07/28/20 at 18:45 Active Scripts Active Reported Amiodarone Hcl 100 Mg Tablet 1 Tab PO DAILY 30 Days Micardis (Telmisartan) 40 Mg Tablet 40 Mg PO DAILY Valtrex (Valacyclovir Hcl) 1,000 Mg Tablet 1 Tab PO DAILY Metoprolol Succinate ( Xl ) (Metoprolol Succinate) 100 Mg Tab.er.24h 50 Mg PO DAILY Xarelto (Rivaroxaban) 20 Mg Tablet 1 Tab PO DAILY 30 Days with food Vitals/I & O Vital Sign - Last 24 Hours 07/28/20 07/28/20 07/28/20 07/28/20 11:03 15:00 17:58 19:10 Temp 97.7 97.4 97.6 97.7 97.4 97.6 Pulse 89 84 84 98 Resp 12 16 18 B/P (MAP) 167/89 (115) 176/93 (120) 176/93 151/61 (91) Pulse Ox 93 94 96 O2 Delivery Room Air Room Air Room Air 07/28/20 07/28/20 07/28/20 07/28/20 21:45 22:12 22:18 22:42 Pulse 91 Resp 20 20 B/P (MAP) 183/78 O2 Delivery Room Air Room Air Room Air 07/28/20 07/29/20 07/29/20 23:03 02:32 07:00 Temp 97.7 98.0 97.8 97.7 98.0 97.8 Pulse 94 90 98 Resp 18 18 18 B/P (MAP) 183/70 (107) 136/71 (92) 175/86 (115) Pulse Ox 96 97 90 O2 Delivery Room Air Room Air Room Air Intake and Output 07/28/20 07/28/20 07/29/20 15:00 23:00 07:00 Intake Total 550 ml 200 ml 350 ml Output Total 500 ml 600 ml Balance 50 ml 200 ml -250 ml Justicifation of Admission Dx: Justifications for Admission: Justification of Admission Dx: Yes CHF: Cardiac Arrhythmias (AFIB with RVR) FARA PEDRO MD July 29, 2020 08:55
[2020-07-29] MEDS: CEPHALEXIN 250 MG CAPSULE. PO SCH ×2 (09:03→14:22)
[2020-07-29] MEDS: METOPROLOL SUCC 24HR ER 50 MG TAB.ER.24H. PO SCH (09:03)
[2020-07-29] MEDS: LACTOBACILLUS RHAMNOSUS GG 1 CAPSULE. PO SCH (09:03)
[2020-07-29] MEDS: AMIODARONE HCL 200 MG TABLET. PO SCH (09:04)
[2020-07-29] MEDS: MICAFUNGIN 100 MG in IV DEXTROSE 5% 100ML 100 ML IV SCH (09:04)
--- NOTE | 2020-07-29 10:44 | PDOC3 ---
Discharge Summary Date of Admission: Jul 22, 2020 Date of Discharge: July 29, 2020 Follow-Up: 1-2 days Admitting Diagnosis comment: IMPRESSION Sepsis and atrial fibrillation with rapid ventricular response, cellulitis and leukocytosis and urinary tract infection. ELECTROLYTE imbalance H/o NICM; LVEF perviously 25-30% 2015. Cath 05/2015 with normal coronaries. Echo 2018 shows LVEF recovery. NATASHA 07/08/20 with EV 50-55%. HAYDER CR BETTER 1.2 SUPER MORBID OBESITY DEBILITY due to obesity PLAN admitted to the cvc IV fluids, IV antibiotics. Continue cefazolin and Zyvox. iv d/c iv vanc Dose micafungin Consult Cardiology. Consult Infectious Disease. Home meds. Deep venous thrombosis prophylaxis. Full code. Long-term prognosis guarded. replace giorgio d/c planning 34 min 60,000 CFU/ML GRAM NEGATIVE RODS on 07/23/20 at 0736 FINAL ID= [ESCHERICHIA COLI] BLOOD CULTURE Preliminary NO GROWTH AFTER 4 DAYS History of Present Illness History of Present Illness The patient is a pleasant 69-year-old female who has a previous history of atrial fibrillation 5 years ago, now she presents with another rapid heart rate, has been occurring for a couple of days. She thought it would go away. She has some associated shortness of breath and some left arm discomfort. She apparently was converted recently as an outpatient from her recurrent AFib. She has also increased her metoprolol. She is already on Xarelto. I discussed the case with ER physician. The patient has been admitted to the ICU. She has AFib with RVR and sepsis as well with cellulitis on the right UPPER AND lower extremity. Start Keflex 500 mg p.o. 3 times daily for 7 days DC cefazolin and Zyvox 07/29/2020 discharge 07-29 to HOME HEALTH Afebrile, no acute events overnight. Monitor kidney function. Will also co ntinue metoprolol and amiodarone for rate control. Appreciate ID input No Doppler evidence of lower extremity deep venous thrombosis. CR 1.2 Continue KEFLEX 500 MG PO TID CONT micafungin WHILE HERE IV d/w rn PT/OT , MAY NEED SNF REHAB D/W pt and rn IN ROOM D/C PLANNING 34 MIN Start Keflex 500 mg p.o. 3 times daily for 7 days DC cefazolin and Zyvox 07/28/2020 discharge 07-29 to SNF Afebrile, no acute events overnight. Monitor kidney function. Will also continue metoprolol and amiodarone for rate control. Appreciate ID input No Doppler evidence of lower extremity deep venous thrombosis. CR 1.2 Continue KEFLEX 500 MG PO TID CONT micafungin WHILE HERE IV d/w rn PT/OT , MAY NEED SNF REHAB D/W pt and rn IN ROOM --- -------- BLOOD CULTURE Preliminary NO GROWTH AFTER 4 DAYS Source of Information * Nursing * Medical Record Areas of Deficit/Decline in Function * Mobility * ADLs Recommendations for Rehab Services * O.T. Eval and Treat * P.T. Eval and Treat Other Information * Chart reviewed and pt would benefit from skilled OT/PT evaluation and tx. Please order when pt is appropriate. Thank you. 07/27/2020 Afebrile, no acute events overnight. She complains of pain in her right lower extremity; will discontinue IV pain medications and add orals. Monitor kidney function. Will also continue metoprolol and amiodarone for rate control. MRSA PCR pending, CONT Zosyn for now. Appreciate ID input No Doppler evidence of lower extremity deep venous thrombosis. CR 1.2 Continue cefazolin and Zyvox. iv begin micafungin d/w rn PT/OT d/c with home health if needed BLOOD CULTURE Preliminary NO GROWTH AFTER 4 DAYS FINAL DIAGNOSIS Problems Medical Problems: (1) Atrial fibrillation with RVR Status: Acute (2) Cellulitis of right lower extremity Status: Acute (3) Sepsis Status: Acute (4) UTI (urinary tract infection) Status: Acute Brief Hospital Course Ms. Zavaleta is a 69 old [sex] who presented with [ ] Discharge Medications Current Medications Sodium Chloride 1,000 ml @ 1,000 mls/hr Q1H IV Last administered on 07/21/20at 22:58; Start 07/21/20 at 22:30; Stop 07/21/20 at 23:29; Status DC Diltiazem HCl (Cardizem Iv Push) 10 mg 1X ONCE IVP ; Start 07/21/20 at 22:00; Stop 07/21/20 at 21:55; Status DC Sodium Chloride 1,000 ml @ 1,000 mls/hr 1X ONCE IV Last administered on 07/21/20at 22:58; Start 07/21/20 at 22:30; Stop 07/21/20 at 23:29; Status DC Diltiazem HCl (Cardizem Iv Push) 20 mg 1X ONCE IVP Last administered on 07/21/20at 22:59; Start 07/21/20 at 22:30; Stop 07/21/20 at 22:31; Status DC Vancomycin HCl (Vanco Per Pharmacy) 1 each PRN DAILY PRN MC SEE COMMENTS Last administered on 07/24/20at 07:39; Start 07/21/20 at 22:15; Stop 07/25/20 at 11:14; Status DC Vancomycin HCl 2 gm/Sodium Chloride 500 ml @ 250 mls/hr 1X ONCE IV Last administered on 07/21/20at 23:31; Start 07/21/20 at 23:30; Stop 07/22/20 at 01:29; Status DC Acetaminophen (Tylenol) 650 mg 1X ONCE PO Last administered on 07/22/20at 01:16; Start 07/22/20 at 01:00; Stop 07/22/20 at 01:01; Status DC Vancomycin HCl 2 gm/Sodium Chloride 500 ml @ 250 mls/hr Q24H IV Last administered on 07/24/20at 23:23; Start 07/22/20 at 23:00; Stop 07/25/20 at 11:13; Status DC Vancomycin HCl (Vancomycin Trough Level) 1 each 1X ONCE MC Last administered o n 07/23/20at 22:30; Start 07/23/20 at 22:30; Stop 07/23/20 at 22:31; Status DC Ceftriaxone Sodium (Rocephin) 1 gm 1X ONCE IVP Last administered on 07/22/20at 04:22; Start 07/22/20 at 04:00; Stop 07/22/20 at 04:01; Status DC Sodium Chloride 1,000 ml @ 125 mls/hr 1X ONCE IV Last administered on 07/22/20at 05:23; Start 07/22/20 at 05:30; Stop 07/22/20 at 13:29; Status DC Piperacillin Sod/ Tazobactam Sod (Zosyn Per Pharmacy) 1 each PRN DAILY PRN MC SEE COMMENTS; Start 07/22/20 at 05:15; Stop 07/25/20 at 11:15; Status DC Piperacillin Sod/ Tazobactam Sod 3.375 gm/Sodium Chloride 50 ml @ 100 mls/hr Q6HRS IV Last administered on 07/25/20at 06:23; Start 07/22/20 at 06:00; Stop 07/25/20 at 11:14; Status DC Lactobacillus Rhamnosus (Culturelle) 1 cap BID PO Last administered on 07/29/20at 09:03; Start 07/22/20 at 09:00 Fentanyl Citrate (Fentanyl 2ml Vial) 50 mcg PRN Q2HR PRN IVP PAIN Last administered on 07/23/20 08:15; Start 07/22/20 at 10:30; Stop 07/23/20 at 10:06; Status DC Metoprolol Succinate (Toprol Xl) 50 mg DAILY PO Last administered on 07/29/20 09:03; Start 07/22/20 at 11:00 Rivaroxaban (Xarelto) 20 mg DAILYWSUP PO Last administered on 07/28/20 16:53; Start 07/22/20 at 17:00 Amiodarone HCl (Cordarone) 200 mg DAILY PO Last administered on 07/29/20 09:04; Start 07/22/20 at 11:00 Digoxin (Lanoxin) 250 mcg 1X ONCE IV Last administered on 07/22/20 11:22; Start 07/22/20 at 10:45; Stop 07/22/20 at 10:46; Status DC Acetaminophen (Tylenol) 650 mg PRN Q6HRS PRN PO MILD PAIN / TEMP > 100.3'F Last administered on 07/29/20 09:58; Start 07/22/20 at 11:30 Furosemide (Lasix) 40 mg 1X ONCE IVP Last administered on 07/22/20 15:08; St art 07/22/20 at 13:45; Stop 07/22/20 at 13:48; Status DC Potassium Phos/ Sodium Phos (Phos-Nak) 1 pkt Q12HR PO Last administered on 07/23/20at 10:18; Start 07/22/20 at 17:00; Stop 07/23/20 at 09:01; Status DC Furosemide (Lasix) 20 mg 1X ONCE IVP Last administered on 07/23/20at 08:15; Start 07/23/20 at 07:00; Stop 07/23/20 at 07:01; Status DC Acetaminophen/ Hydrocodone Bitart (Lortab 7.5/325) 1 tab PRN Q6HRS PRN PO SEVERE PAIN Last administered on 07/25/20at 09:27; Start 07/23/20 at 10:15 Acetaminophen/ Hydrocodone Bitart (Lortab 10/325) 1 tab PRN Q6HRS PRN PO SEVERE PAIN 2ND CHOICE Last administered on 07/24/20at 08:38; Start 07/23/20 at 10:15 Acetaminophen/ Hydrocodone Bitart (Lortab 5/325) 1 tab PRN Q4HRS PRN PO MODERATE PAIN Last administered on 07/28/20at 22:12; Start 07/23/20 at 10:15 Digoxin (Lanoxin) 250 mcg 1X ONCE IV Last administered on 07/23/20at 13:13; Start 07/23/20 at 12:45; Stop 07/23/20 at 12:46; Status DC Furosemide (Lasix) 40 mg 1X ONCE IVP Last administered on 07/24/20at 14:26; Start 07/24/20 at 14:15; Stop 07/24/20 at 14:16; Status DC Potassium Chloride (Klor-Con) 40 meq 1X ONCE PO Last administered on 07/24/20at 14:27; Start 07/24/20 at 14:15; Stop 07/24/20 at 14:16; Status DC Potassium Bicarbonate (Potassium Effervescent Tablet) 40 meq 1X ONCE FT ; Start 07/24/20 at 15:30; Stop 07/24/20 at 15:31; Status UNV Potassium Bicarbonate (Potassium Effervescent Tablet) 40 meq 1X ONCE FT ; Start 07/24/20 at 15:30; Stop 07/24/20 at 15:31; Status UNV Magnesium Sulfate 50 ml @ 25 mls/hr Q24H IV ; Start 07/24/20 at 15:30; Stop 07/26/20 at 17:29; Status UNV Potassium Phos/ Sodium Phos (Phos-Nak) 1 pkt BID PO ; Start 07/24/20 at 21:00; Stop 07/25/20 at 09:01; Status UNV Potassium Bicarbonate (Potassium Effervescent Tablet) 40 meq Q4H PO ; Start 07/24/20 at 15:30; Stop 07/24/20 at 19:31; Status UNV Info (Non-Icu Electrolyte Protocol) 1 ea CONT PRN PRN MC SEE COMMENTS; Start 07/24/20 at 15:45 Cefazolin Sodium/ Dextrose 50 ml @ 100 mls/hr Q8HRS IV Last administered on 07/28/20at 05:44; Start 07/25/20 at 14:00; Stop 07/28/20 at 09:01; Status DC Linezolid (Zyvox) 600 mg BID PO Last administered on 07/28/20at 08:30; Start 07/25/20 at 12:00; Stop 07/28/20 at 09:01; Status DC Micafungin Sodium 100 mg/Dextrose 100 ml @ 100 mls/hr Q24H IV Last adminis tered on 07/29/20at 09:04; Start 07/26/20 at 10:00 Cephalexin HCl (Keflex) 500 mg TID PO Last administered on 07/29/20at 09:03; St art 07/28/20 at 14:00 Hydralazine HCl (Apresoline Inj) 10 mg PRN Q4HRS PRN IVP ELEVATED BP, SEE COMMENTS Last administered on 07/28/20at 22:18; Start 07/28/20 at 17:00 Hydralazine HCl (Apresoline Inj) 10 mg 1X ONCE IVP Last administered on 07/28/20at 17:58; Start 07/28/20 at 17:00; Stop 07/28/20 at 17:02; Status DC Zolpidem Tartrate (Ambien) 5 mg PRN QHS PRN PO INSOMNIA Last administered on 07/29/20at 00:07; Start 07/28/20 at 18:45 Active Scripts Active Reported Amiodarone Hcl 100 Mg Tablet 1 Tab PO DAILY 30 Days Micardis (Telmisartan) 40 Mg Tablet 40 Mg PO DAILY Valtrex (Valacyclovir Hcl) 1,000 Mg Tablet 1 Tab PO DAILY Metoprolol Succinate ( Xl ) (Metoprolol Succinate) 100 Mg Tab.er.24h 50 Mg PO DAILY Xarelto (Rivaroxaban) 20 Mg Tablet 1 Tab PO DAILY 30 Days with food Vital Signs Vital Signs Date Time Temp Pulse Resp B/P (MAP) Pulse Ox O2 Delivery O2 Flow Rate FiO2 07/29/20 09:04 98 175/86 07/29/20 07:00 97.8 18 90 Room Air 97.8 Labs Laboratory Tests Test 07/28/20 04:00 White Blood Count 8.2 x10^3/uL (4.0-11.0) Red Blood Count 3.43 x10^6/uL (3.50-5.40) Hemoglobin 10.6 g/dL (12.0-15.5) Hematocrit 32.8 % (36.0-47.0) Mean Corpuscular Volume 96 fL (79-100) Mean Corpuscular Hemoglobin 31 pg (25-35) Mean Corpuscular Hemoglobin Concent 32 g/dL (31-37) Red Cell Distribution Width 14.2 % (11.5-14.5) Platelet Count 350 x10^3/uL (140-400) Neutrophils (%) (Auto) 78 % (31-73) Lymphocytes (%) (Auto) 12 % (24-48) Monocytes (%) (Auto) 7 % (0-9) Eosinophils (%) (Auto) 3 % (0-3) Basophils (%) (Auto) 1 % (0-3) Neutrophils # (Auto) 6.4 x10^3/uL (1.8-7.7) Lymphocytes # (Auto) 0.9 x10^3/uL (1.0-4.8) Monocytes # (Auto) 0.6 x10^3/uL (0.0-1.1) Eosinophils # (Auto) 0.2 x10^3/uL (0.0-0.7) Basophils # (Auto) 0.1 x10^3/uL (0.0-0.2) Sodium Level 144 mmol/L (136-145) Potassium Level 3.6 mmol/L (3.5-5.1) Chloride Level 106 mmol/L (98-107) Carbon Dioxide Level 28 mmol/L (21-32) Anion Gap 10 (6-14) Blood Urea Nitrogen 10 mg/dL (7-20) Creatinine 1.2 mg/dL (0.6-1.0) Estimated GFR (Cockcroft-Gault) 44.7 Glucose Level 103 mg/dL (70-99) Calcium Level 8.8 mg/dL (8.5-10.1) Allergies Allergies Coded Allergies Type Severity Reaction Last Updated Verified I S O L A T I O N *CONTACT* Allergy Unknown 07/25/20 Yes No Known Medication Allergies Allergy Unknown 07/25/20 Yes Justicifation of Admission Dx: Justifications for Admission: Justification of Admission Dx: Yes CHF: Cardiac Arrhythmias (AFIB with RVR) FARA PEDRO MD July 29, 2020 10:44
[2020-07-29] MEDS ORDERED: ACET325T21 PO (10:46)
[2020-07-29] MEDS ORDERED: CEPH250C PO (10:46)
[2020-07-29] MEDS ORDERED: LACT1CAP19 PO (10:46)
[2020-07-29] MEDS ORDERED: AMIO200T6 PO (10:46)
--- NOTE | 2020-07-29 10:48 | SNU/HH DC ---
DISCHARGE WITH HOME HEALTH DISCHARGE INFORMATION: Discharge Date: July 29, 2020 Final Diagnosis: Problems Medical Problems: (1) Atrial fibrillation with RVR Status: Acute (2) Cellulitis of right lower extremity Status: Acute (3) Sepsis Status: Acute (4) UTI (urinary tract infection) Status: Acute Condition on Discharge: Stable CODE STATUS: Code Status: Full HOME HEALTH: Face to Face: I certify this patient is under my care and that I, or a nurse practitioner or physician's development assistant working with me, had a face to face encounter that meets the physician face to face encounter requirements with this patient on []. Medical Complications: Other (SEPSIS) [facility] For: Assess Cardiopulm Status, Assess & Educate Safety, Assess/Skilled Observatio, Medication Management RN For Eval/Treatment: Yes Physical Therapy For: Evalulation/Treatment Occupational Therapy For: Evaluation/Treatment Speech Language Pathology For: Evaluation/Treatment Home Health Aide For: Self-care FLOUR TESTER For: Community Resources Pt Meets Homebound Status: Limited distance walking POST DISCHARGE ORDERS: Activity Instructions for Disc: Activity as tolerated DIET AFTER DISCHARGE: Cardiac CHECKS AFTER DISCHARGE: Checks after discharge: Check blood press - daily FOLLOW-UP: PCP to follow Home Health: SEE PCP THIS WEEK Follow up with: CARDIOLOGY SOON DIRECTED TREATMENT/EQUIPMENT ORDERS: Adaptive Equipment Issued: Commode, Front wheeled walker, Hand held shower CERTIFICATION STATEMENT: Certification Statement: Certification Statement: Based on the above finding, I certify that this patient is confined to the home and needs intermittent assisted care, physical therapy and/or speech therapy, or continues to need occupational therapy.~ This patient is under my care, and I have initiated the establishment of the plan of care.~ This patient will be followed by myself or a community physician who will periodically review the plan of care. Home Meds Active Scripts Lactobacillus Rhamnosus Gg (CULTURELLE) 1 Each Cap.sprink, 1 CAP PO BID for SUPPLEMENT for 30 Days, #60 CAP Prov:FARA PEDOR MD 07/29/20 Acetaminophen (ACETAMINOPHEN) 325 Mg Tablet, 650 MG PO PRN Q6HRS PRN for MILD PAIN / TEMP > 100.3'F for 30 Days, #100 TAB Prov:FARA PEDRO MD 07/29/20 Amiodarone Hcl (AMIODARONE HCL) 200 Mg Tablet, 200 MG PO DAILY for HEART RHYTHM for 30 Days, #30 TAB Prov:FARA PEDRO MD 07/29/20 Cephalexin (CEPHALEXIN) 250 Mg Capsule, 500 MG PO TID for INFECTION for 7 Days, #42 CAP Prov:FARA PEDRO MD 07/29/20 Reported Medications Metoprolol Succinate (METOPROLOL SUCCINATE ( XL )) 100 Mg Tab.er.24h, 50 MG PO DAILY for FOR HYPERTENSION, #30 TAB 0 Refills 07/22/20 Rivaroxaban (XARELTO) 20 Mg Tablet, 1 TAB PO DAILY for afib for 30 Days, #30 TAB 0 Refills with food 07/22/20 Discontinued Reported Medications Amiodarone Hcl (AMIODARONE HCL) 100 Mg Tablet, 1 TAB PO DAILY for bp for 30 Days, #30 TAB 0 Refills 07/22/20 Telmisartan (MICARDIS) 40 Mg Tablet, 40 MG PO DAILY for bp, TAB 07/22/20 Valacyclovir Hcl (VALTREX) 1,000 Mg Tablet, 1 TAB PO DAILY for herpes, #30 TAB 5 Refills 07/22/20 Amiodarone Hcl (AMIODARONE HCL) 100 Mg Tablet, 1 TAB PO DAILY for heart rate for 30 Days, #30 TAB 0 Refills 07/22/20 FARA PEDRO MD July 29, 2020 10:48
--- NOTE | 2020-07-29 10:51 | PDOC3 ---
Discharge Summary Date of Admission: Jul 22, 2020 Date of Discharge: July 29, 2020 Follow-Up: 3-5 days Admitting Diagnosis comment: HPI History of Present Illness History of Present Illness The patient is a pleasant 69-year-old female who has a previous history of atrial fibrillation 5 years ago, now she presents with another rapid heart rate, has been occurring for a couple of days. She thought it would go away. She has some associated shortness of breath and some left arm discomfort. She apparently was converted recently as an outpatient from her recurrent AFib. She has also increased her metoprolol. She is already on Xarelto. I discussed the case with ER physician. The patient has been admitted to the ICU. She has AFib with RVR and sepsis as well with cellulitis on the right UPPER AND lower extremity. Start Keflex 500 mg p.o. 3 times daily for 7 days DC cefazolin and Zyvox 07/29/2020 discharge 07-29 to HOME [facility] Afebrile, no acute events overnight. Monitor kidney function. Will also c ontinue metoprolol and amiodarone for rate control. Appreciate ID input No Doppler evidence of lower extremity deep venous thrombosis. CR 1.2 Continue KEFLEX 500 MG PO TID CONT micafungin WHILE HERE IV d/w rn PT/OT , MAY NEED SNF REHAB D/W pt and rn IN ROOM D/C PLANNING 34 MIN COMPLICATIONS NONE D/C CONDITION GOOD CONSULTS CARDIOLOGY, ID D/C MEDS SEE MAY D/C TO HOME HEALTH PROCEDURES CVC MONITOR, DISCHARGE DX Sepsis and atrial fibrillation with rapid ventricular response, cellulitis and leukocytosis and urinary tract infection. ELECTROLYTE imbalance H/o NICM; LVEF perviously 25-30% 2015. Cath 05/2015 with normal coronaries. Echo 2018 shows LVEF recovery. NATASHA 07/08/20 with EV 50-55%. HAYDER CR BETTER 1.2 SUPER MORBID OBESITY DEBILITY due to obesity PLAN admitted to the cvc IV fluids, IV antibiotics. Continue cefazolin and Zyvox. iv d/c iv vanc Dose micafungin Consult Cardiology. Consult Infectious Disease. Home meds. Deep venous thrombosis prophylaxis. Full code. Long-term prognosis guarded. replace giorgio herring/cayden planning 34 min 60,000 CFU/ML GRAM NEGATIVE RODS on 07/23/20 at 0736 FINAL ID= [ESCHERICHIA COLI] BLOOD CULTURE Preliminary NO GROWTH AFTER 4 DAYS History of Present Illness History of Present Illness The patient is a pleasant 69-year-old female who has a previous history of atrial fibrillation 5 years ago, now she presents with another rapid heart rate, has been occurring for a couple of days. She thought it would go away. She has some associated shortness of breath and some left arm discomfort. She apparently was converted recently as an outpatient from her recurrent AFib. She has also increased her metoprolol. She is already on Xarelto. I discussed the case with ER physician. The patient has been admitted to the ICU. She has AFib with RVR and sepsis as well with cellulitis on the right UPPER AND lower extr emity. Start Keflex 500 mg p.o. 3 times daily for 7 days DC cefazolin and Zyvox 07/29/2020 discharge 07-29 to SNF Afebrile, no acute events overnight. Monitor kidney function. Will also continue metoprolol and amiodarone for rate control. Appreciate ID input No Doppler evidence of lower extremity deep venous thrombosis. CR 1.2 Continue KEFLEX 500 MG PO TID CONT micafungin WHILE HERE IV d/w rn PT/OT , MAY NEED SNF REHAB D/W pt and rn IN ROOM Start Keflex 500 mg p.o. 3 times daily for 7 days DC cefazolin and Zyvox 07/28/2020 discharge 07-29 to SNF Afebrile, no acute events overnight. Monitor kidney function. Will also continue metoprolol and amiodarone for rate control. Appreciate ID input No Doppler evidence of lower extremity deep venous thrombosis. CR 1.2 Continue KEFLEX 500 MG PO TID CONT micafungin WHILE HERE IV d/w rn PT/OT , MAY NEED SNF REHAB D/W pt and rn IN ROOM REFUSED SNF WILL D/C TO HOME HEALTH 07-29 BLOOD CULTURE Preliminary NO GROWTH AFTER 4 DAYS Source of Information * Nursing * Medical Record Areas of Deficit/Decline in Function * Mobility * ADLs Recommendations for Rehab Services * O.T. Eval and Treat * P.T. Eval and Treat Other Information * Chart reviewed and pt would benefit from skilled OT/PT evaluation and tx. Please order when pt is appropriate. Thank you. 07/27/2020 Afebrile, no acute events overnight. She complains of pain in her right lower extremity; will discontinue IV pain medications and add orals. Monitor kidney function. Will also continue metoprolol and amiodarone for rate control. MRSA PCR pending, CONT Zosyn for now. Appreciate ID input No Doppler evidence of lower extremity deep venous thrombosis. CR 1.2 Continue cefazolin and Zyvox. iv begin micafungin d/w rn PT/OT BLOOD CULTURE Preliminary NO GROWTH AFTER 4 DAYS 07/26 Afebrile, no acute events overnight. She complains of pain in her right lower extremity; will discontinue IV pain medications and add orals. Monitor kidney function. Will also continue metoprolol and amiodarone for rate control. MRSA PCR pending, D/C vancomycin and CONT Zosyn for now. Appreciate ID input on the management of this patient. No Doppler evidence of lower extremity deep venous thrombosis. CR 1.2 d/w rn BLOOD CULTURE Preliminary NO GROWTH AFTER 4 DAYS 07/25/2020 Afebrile, no acute events overnight. She complains of pain in her right lower extremity; will discontinue IV pain medications and add orals. Monitor kidney function. Will also continue metoprolol and amiodarone for rate control. MRSA PCR pending, continue vancomycin and Zosyn for now. Appreciate ID input on the management of this patient. No Doppler evidence of lower extremity deep venous thrombosis. CR 1.3 07/24/2020 Afebrile, no acute events overnight. She complains of pain in her right lower extremity; will discontinue IV pain medications and add orals. 90 mL net fluid output overnight; continue diuresis with Lasix IV x1. Monitor kidney function. Will also continue metoprolol and amiodarone for rate control. MRSA PCR pending, continue vancomycin and Zosyn for now. Appreciate ID input on the management of this patient. No Doppler evidence of lower extremity deep venous thrombosis. 07/23/2020 Afebrile, no acute events overnight. She complains of pain in her right lower extremity; will discontinue IV pain medications and add orals. 90 mL net fluid output overnight; continue diuresis with Lasix IV x1. Monitor kidney function. Will also continue metoprolol and amiodarone for rate control. MRSA PCR pending, continue vancomycin and Zosyn for now. Appreciate ID input on the management of this patient. Vitals Vitals Vital Signs Date Time Temp Pulse Resp B/P (MAP) Pulse Ox O2 Delivery O2 Flow Rate FiO2 07/29/20 07:00 97.8 98 18 175/86 (115) 90 Room Air 97.8 Physical Exam Physical Exam GENERAL: Alert and oriented x3 female lying in bed comfortably, in no acute distress. HEENT: Normocephalic, atraumatic. Anicteric. NECK: Supple. No JVD. LUNGS: Clear bilaterally. No wheezing. HEART: Irregularly irregular. ABDOMEN: Soft, nontender, nondistended, obese. EXTREMITIES: Right lower extremity swelling, erythema going up the thigh. No open wounds seen. NEUROLOGIC: Alert and oriented x3. Grossly nonfocal. PSYCHIATRIC: Cooperative, with appropriate mood, and affect. PIV looks clean. General: Alert, Oriented X3, Cooperative, No acute distress Heart: Regular rate, Normal S1, Normal S2, No murmurs, Other (AFIB, rate mostly controlled ) Lungs: Clear Abdomen: Normal bowel sounds, Soft, No tenderness, Other (obese ) Extremities: No clubbing, No cyanosis, Other (1+ bilalteral LE edema right upper leg cellulitis) Skin: No significant lesion, Other (Erythema to RLE ) FINAL DIAGNOSIS Problems Medical Problems: (1) Atrial fibrillation with RVR Status: Acute (2) Cellulitis of right lower extremity Status: Acute (3) Sepsis Status: Acute (4) UTI (urinary tract infection) Status: Acute Brief Hospital Course Ms. Zavaleta is a 69 old [sex] who presented with [ ] CONDITION AT DISCHARGE: Improved Discharge Medications Current Medications Sodium Chloride 1,000 ml @ 1,000 mls/hr Q1H IV Last administered on 07/21/20at 22:58; Start 07/21/20 at 22:30; Stop 07/21/20 at 23:29; Status DC Diltiazem HCl (Cardizem Iv Push) 10 mg 1X ONCE IVP ; Start 07/21/20 at 22:00; Stop 07/21/20 at 21:55; Status DC Sodium Chloride 1,000 ml @ 1,000 mls/hr 1X ONCE IV Last administered on 07/21/20at 22:58; Start 07/21/20 at 22:30; Stop 07/21/20 at 23:29; Status DC Diltiazem HCl (Cardizem Iv Push) 20 mg 1X ONCE IVP Last administered on 07/21/20at 22:59; Start 07/21/20 at 22:30; Stop 07/21/20 at 22:31; Status DC Vancomycin HCl (Vanco Per Pharmacy) 1 each PRN DAILY PRN MC SEE COMMENTS Last administered on 07/24/20at 07:39; Start 07/21/20 at 22:15; Stop 07/25/20 at 11:14; Status DC Vancomycin HCl 2 gm/Sodium Chloride 500 ml @ 250 mls/hr 1X ONCE IV Last administered on 07/21/20at 23:31; Start 07/21/20 at 23:30; Stop 07/22/20 at 01:29; Status DC Acetaminophen (Tylenol) 650 mg 1X ONCE PO Last administered on 07/22/20at 01:16; Start 07/22/20 at 01:00; Stop 07/22/20 at 01:01; Status DC Vancomycin HCl 2 gm/Sodium Chloride 500 ml @ 250 mls/hr Q24H IV Last administered on 07/24/20at 23:23; Start 07/22/20 at 23:00; Stop 07/25/20 at 11:13; Status DC Vancomycin HCl (Vancomycin Trough Level) 1 each 1X ONCE MC Last administered on 07/23/20at 22:30; Start 07/23/20 at 22:30; Stop 07/23/20 at 22:31; Status DC Ceftriaxone Sodium (Rocephin) 1 gm 1X ONCE IVP Last administered on 07/22/20at 04:22; Start 07/22/20 at 04:00; Stop 07/22/20 at 04:01; Status DC Sodium Chloride 1,000 ml @ 125 mls/hr 1X ONCE IV Last administered on 07/22/20at 05:23; Start 07/22/20 at 05:30; Stop 07/22/20 at 13:29; Status DC Piperacillin Sod/ Tazobactam Sod (Zosyn Per Pharmacy) 1 each PRN DAILY PRN MC SEE COMMENTS; Start 07/22/20 at 05:15; Stop 07/25/20 at 11:15; Status DC Piperacillin Sod/ Tazobactam Sod 3.375 gm/Sodium Chloride 50 ml @ 100 mls/hr Q6HRS IV Last administered on 07/25/20at 06:23; Start 07/22/20 at 06:00; Stop 07/25/20 at 11:14; Status DC Lactobacillus Rhamnosus (Culturelle) 1 cap BID PO Last administered on 07/29/20 09:03; Start 07/22/20 at 09:00 Fentanyl Citrate (Fentanyl 2ml Vial) 50 mcg PRN Q2HR PRN IVP PAIN Last administered on 07/23/20at 08:15; Start 07/22/20 at 10:30; Stop 07/23/20 at 10:06; Status DC Metoprolol Succinate (Toprol Xl) 50 mg DAILY PO Last administered on 07/29/20 09:03; Start 07/22/20 at 11:00 Rivaroxaban (Xarelto) 20 mg DAILYWSUP PO Last administered on 07/28/20 16:53; Start 07/22/20 at 17:00 Amiodarone HCl (Cordarone) 200 mg DAILY PO Last administered on 07/29/20 09:04; Start 07/22/20 at 11:00 Digoxin (Lanoxin) 250 mcg 1X ONCE IV Last administered on 07/22/20at 11:22; Start 07/22/20 at 10:45; Stop 07/22/20 at 10:46; Status DC Acetaminophen (Tylenol) 650 mg PRN Q6HRS PRN PO MILD PAIN / TEMP > 100.3'F Last administered on 07/29/20 09:58; Start 07/22/20 at 11:30 Furosemide (Lasix) 40 mg 1X ONCE IVP Last administered on 07/22/20at 15:08; Start 07/22/20 at 13:45; Stop 07/22/20 at 13:48; Status DC Potassium Phos/ Sodium Phos (Phos-Nak) 1 pkt Q12HR PO Last administered on 07/23/20at 10:18; Start 07/22/20 at 17:00; Stop 07/23/20 at 09:01; Status DC Furosemide (Lasix) 20 mg 1X ONCE IVP Last administered on 07/23/20at 08:15; Start 07/23/20 at 07:00; Stop 07/23/20 at 07:01; Status DC Acetaminophen/ Hydrocodone Bitart (Lortab 7.5/325) 1 tab PRN Q6HRS PRN PO SEVERE PAIN Last administered on 07/25/20at 09:27; Start 07/23/20 at 10:15 Acetaminophen/ Hydrocodone Bitart (Lortab 10/325) 1 tab PRN Q6HRS PRN PO SEVERE PAIN 2ND CHOICE Last administered on 07/24/20at 08:38; Start 07/23/20 at 10:15 Acetaminophen/ Hydrocodone Bitart (Lortab 5/325) 1 tab PRN Q4HRS PRN PO MODERATE PAIN Last administered on 07/28/20at 22:12; Start 07/23/20 at 10:15 Digoxin (Lanoxin) 250 mcg 1X ONCE IV Last administered on 07/23/20at 13:13; Start 07/23/20 at 12:45; Stop 07/23/20 at 12:46; Status DC Furosemide (Lasix) 40 mg 1X ONCE IVP Last administered on 07/24/20at 14:26; Start 07/24/20 at 14:15; Stop 07/24/20 at 14:16; Status DC Potassium Chloride (Klor-Con) 40 meq 1X ONCE PO Last administered on 07/24/20at 14:27; Start 07/24/20 at 14:15; Stop 07/24/20 at 14:16; Status DC Potassium Bicarbonate (Potassium Effervescent Tablet) 40 meq 1X ONCE FT ; Start 07/24/20 at 15:30; Stop 07/24/20 at 15:31; Status UNV Potassium Bicarbonate (Potassium Effervescent Tablet) 40 meq 1X ONCE FT ; Start 07/24/20 at 15:30; Stop 07/24/20 at 15:31; Status UNV Magnesium Sulfate 50 ml @ 25 mls/hr Q24H IV ; Start 07/24/20 at 15:30; Stop 07/26/20 at 17:29; Status UNV Potassium Phos/ Sodium Phos (Phos-Nak) 1 pkt BID PO ; Start 07/24/20 at 21:00; Stop 07/25/20 at 09:01; Status UNV Potassium Bicarbonate (Potassium Effervescent Tablet) 40 meq Q4H PO ; Start 07/24/20 at 15:30; Stop 07/24/20 at 19:31; Status UNV Info (Non-Icu Electrolyte Protocol) 1 ea CONT PRN PRN MC SEE COMMENTS; Start 07/24/20 at 15:45 Cefazolin Sodium/ Dextrose 50 ml @ 100 mls/hr Q8HRS IV Last administered on 07/28/20at 05:44; Start 07/25/20 at 14:00; Stop 07/28/20 at 09:01; Status DC Linezolid (Zyvox) 600 mg BID PO Last administered on 07/28/20at 08:30; Start 07/25/20 at 12:00; Stop 07/28/20 at 09:01; Status DC Micafungin Sodium 100 mg/Dextrose 100 ml @ 100 mls/hr Q24H IV Last administered on 07/29/20at 09:04; Start 07/26/20 at 10:00 Cephalexin HCl (Keflex) 500 mg TID PO Last administered on 07/29/20at 09:03; Start 07/28/20 at 14:00 Hydralazine HCl (Apresoline Inj) 10 mg PRN Q4HRS PRN IVP ELEVATED BP, SEE COMMENTS Last administered on 07/28/20at 22:18; Start 07/28/20 at 17:00 Hydralazine HCl (Apresoline Inj) 10 mg 1X ONCE IVP Last administered on 07/28/20at 17:58; Start 07/28/20 at 17:00; Stop 07/28/20 at 17:02; Status DC Zolpidem Tartrate (Ambien) 5 mg PRN QHS PRN PO INSOMNIA Last administered on 07/29/20at 00:07; Start 07/28/20 at 18:45 Active Scripts Active Culturelle (Lactobacillus Rhamnosus Gg) 1 Each Cap.sprink 1 Cap PO BID 30 Days Acetaminophen 325 Mg Tablet 650 Mg PO PRN Q6HRS PRN 30 Days Amiodarone Hcl 200 Mg Tablet 200 Mg PO DAILY 30 Days Cephalexin 250 Mg Capsule 500 Mg PO TID 7 Days Reported Metoprolol Succinate ( Xl ) (Metoprolol Succinate) 100 Mg Tab.er.24h 50 Mg PO DAILY Xarelto (Rivaroxaban) 20 Mg Tablet 1 Tab PO DAILY 30 Days with food Vital Signs Vital Signs Date Time Temp Pulse Resp B/P (MAP) Pulse Ox O2 Delivery O2 Flow Rate FiO2 07/29/20 09:04 98 175/86 07/29/20 07:00 97.8 18 90 Room Air 97.8 Labs Laboratory Tests Test 07/28/20 04:00 White Blood Count 8.2 x10^3/uL (4.0-11.0) Red Blood Count 3.43 x10^6/uL (3.50-5.40) Hemoglobin 10.6 g/dL (12.0-15.5) Hematocrit 32.8 % (36.0-47.0) Mean Corpuscular Volume 96 fL (79-100) Mean Corpuscular Hemoglobin 31 pg (25-35) Mean Corpuscular Hemoglobin Concent 32 g/dL (31-37) Red Cell Distribution Width 14.2 % (11.5-14.5) Platelet Count 350 x10^3/uL (140-400) Neutrophils (%) (Auto) 78 % (31-73) Lymphocytes (%) (Auto) 12 % (24-48) Monocytes (%) (Auto) 7 % (0-9) Eosinophils (%) (Auto) 3 % (0-3) Basophils (%) (Auto) 1 % (0-3) Neutrophils # (Auto) 6.4 x10^3/uL (1.8-7.7) Lymphocytes # (Auto) 0.9 x10^3/uL (1.0-4.8) Monocytes # (Auto) 0.6 x10^3/uL (0.0-1.1) Eosinophils # (Auto) 0.2 x10^3/uL (0.0-0.7) Basophils # (Auto) 0.1 x10^3/uL (0.0-0.2) Sodium Level 144 mmol/L (136-145) Potassium Level 3.6 mmol/L (3.5-5.1) Chloride Level 106 mmol/L (98-107) Carbon Dioxide Level 28 mmol/L (21-32) Anion Gap 10 (6-14) Blood Urea Nitrogen 10 mg/dL (7-20) Creatinine 1.2 mg/dL (0.6-1.0) Estimated GFR (Cockcroft-Gault) 44.7 Glucose Level 103 mg/dL (70-99) Calcium Level 8.8 mg/dL (8.5-10.1) Allergies Allergies Coded Allergies Type Severity Reaction Last Updated Verified I S O L A T I O N *CONTACT* Allergy Unknown 07/25/20 Yes No Known Medication Allergies Allergy Unknown 07/25/20 Yes Disposition/Orders: D/C to Home w/ HH Justicifation of Admission Dx: Justifications for Admission: Justification of Admission Dx: Yes CHF: Cardiac Arrhythmias (AFIB with RVR) FARA PEDRO MD July 29, 2020 10:51
[2020-07-29 11:00] VITALS: BP 176/88
--- NOTE | 2020-07-29 11:20 | NUR ---
SS following up with discharge planning. SS reviewed pt chart and discussed with pt RN. Pt is currently on room air. Pt on IV Micafungin. Switching to PO antibiotics today. PT/OT recommended home with assistance. Discharge orders on the chart for home with home healthcare. SS met with pt to discuss discharge planning and home healthcare services. Pt declining home healthcare at this time stating that her children will alternate coming to her home to help care for her. Pt's RN notified. SS will continue to follow for discharge planning.
--- NOTE | 2020-07-29 14:52 | NUR ---
Discharge Note: CONSUELO CAMPBELL [address] Discharge instructions and discharge home medications reviewed with Spouse and a copy given. All questions have been answered and understanding verbalized. The following instructions and handouts were given: amiodarone, sepsis, cephalexin, lactobaccillus. Patient discharged to home with daughter via wheelchair.
== END 2020-07-29 14:52 | disposition home or self-care (01) | DRG 871 ==
LOC: ER 21:34 → 1 WEST ICU 07-22 00:50 → 2 SOUTH 07-22 16:30
PROVIDERS: ADMIT Internal Medicine; ATTEND Internal Medicine
DX: A41.9 Sepsis, unspecified organism (principal); I50.33 Acute on chronic diastolic (congestive) heart failure; I13.0 Hypertensive heart and chronic kidney disease with heart failure and stage 1 through stage 4 chronic kidney disease, or unspecified chronic kidney disease; L03.115 Cellulitis of right lower limb; L03.116 Cellulitis of left lower limb; N17.9 Acute kidney failure, unspecified; N39.0 Urinary tract infection, site not specified; I42.8 Other cardiomyopathies; I48.91 Unspecified atrial fibrillation; B96.20 Unspecified Escherichia coli [E. coli] as the cause of diseases classified elsewhere; E66.01 Morbid (severe) obesity due to excess calories; I48.0 Paroxysmal atrial fibrillation; J45.909 Unspecified asthma, uncomplicated; L29.9 Pruritus, unspecified; N18.9 Chronic kidney disease, unspecified; Z79.01 Long term (current) use of anticoagulants; Z82.49 Family history of ischemic heart disease and other diseases of the circulatory system; Z83.3 Family history of diabetes mellitus; F32.9 Major depressive disorder, single episode, unspecified; F41.9 Anxiety disorder, unspecified; K21.9 Gastro-esophageal reflux disease without esophagitis
CPT/HCPCS: 36415; 36600; 71045; 73552; 73560; 73590; 80048; 80053; 80202; 80307; 81001; 82805; 83605; 83735; 83880; 84100; 84145; 84484; 84550; 85007; 85025; 85379; 85610; 85730; 86140; 87040; 87077; 87086; 87186; 87493; 87641; 93005; 93971; 96361; 96365; 96375; 99291; J0360; J0690; J0696; J1160; J1940; J2248; J2543; J3010; J3370; J3490; J7030; J7040; J7060; 97116-GP; 97535-GO; G0378